=== PATIENT | male | born 1960 | race African-American/Black ===

== ENCOUNTER 2022-02-12 19:10 | Inpatient (IN) | payer MEDICARE ==
[~2022-02-12] VITALS: Ht 172.7 cm; Wt 88.4 kg
--- NOTE | 2022-02-12 19:31 | ED.ADGEN ---
General Adult EDM: Chief Complaint: CHEST PAIN HPI: HPI: Patient is a 61 year old male coming in via EMS for chest pain. Patient states he is also shortness of breath and headaches for the past month. Patient was recently released from [facility] custodial after he stayed for about 3 days. Patient has a history of diabetes, CABG, hypertension, neuropathy, intermittent alcohol use. Patient had a four-vessel CABG and colon resection 2013. Patient is status post hemodialysis due to renal transplant in 2010. All of his doctors and procedures were done at [facility]. Patient was given 324 mg aspirin by EMS. Patient states he was recently on a drinking binge which is why he ended up in custodial. Patient states the chest pain has been there but has been getting worse 1 hour prior to calling EMS. He describes it as a tightness and also reports lightheadedness and nausea. Review of Systems: Review of Systems: All other systems within normal limits except for as noted in the HPI Current Medications: Current Medications Medications (Trade) Dose Ordered Sig/Twan Start Time Stop Time Status Last Admin Dose Admin Acetaminophen (Tylenol) 650 mg PRN Q4HRS PRN 02/12/22 20:45 02/13/22 20:44 Calcium Gluconate (Calcium Gluconate) 1,000 mg 1X ONCE 02/12/22 20:15 02/12/22 20:16 DC 02/12/22 20:46 1,000 MG Dextrose (Dextrose 50%-Water Syringe) 25 gm 1X ONCE 02/12/22 20:15 02/12/22 20:16 DC 02/12/22 20:46 25 GM Fentanyl Citrate (Fentanyl 2ml Vial) 50 mcg PRN Q1HR PRN 02/12/22 20:45 02/13/22 20:44 Insulin Human Regular (HumuLIN R VIAL) 10 unit 1X ONCE 02/12/22 20:15 02/12/22 20:16 DC 02/12/22 20:49 10 UNIT Lorazepam (Ativan Inj) 1 mg 1X ONCE 02/12/22 19:45 02/12/22 19:53 DC 02/12/22 20:23 1 MG Ondansetron HCl (Zofran) 4 mg PRN Q8HRS PRN 02/12/22 20:45 02/13/22 20:44 Sodium Chloride 500 ml @ 500 mls/hr 1X ONCE 02/12/22 20:00 02/12/22 20:59 DC 02/12/22 20:23 500 MLS/HR Tacrolimus (Prograf) 1 mg 1X STAT 02/12/22 20:25 02/12/22 20:37 DC Allergies: Allergies: Allergies Coded Allergies Type Severity Reaction Last Updated Verified No Known Drug Allergies 02/12/22 No Physical Exam: PE: Constitutional: Well developed, well nourished, no acute distress, non-toxic appearance. [] HENT: Normocephalic, atraumatic, bilateral external ears normal, nose normal. [] Eyes: PERRLA, conjunctiva normal, no discharge. [] Neck: No rigidity, supple, no stridor. [] Cardiovascular: Regular rate and rhythm, brisk cap refill [] Lungs & Thorax: Non labored symmetric respirations, no tachypnea or respiratory distress [] Abdomen: Soft, nondistended. Skin: Warm, dry, no erythema, no rash. [] Back: Unremarkable Extremities: No deformities, range of motion grossly intact, no lower extremity edema [] Neurologic: Alert and oriented X 3, no focal deficits noted. [] Psychologic: Affect normal, judgement normal, mood normal. [] Current Patient Data: Labs: Laboratory Tests Test 02/12/22 19:46 White Blood Count 12.1 x10^3/uL (4.0-11.0) H Red Blood Count 5.71 x10^6/uL (4.30-5.70) H Hemoglobin 16.8 g/dL (13.0-17.5) Hematocrit 49.9 % (39.0-53.0) Mean Corpuscular Volume 87 fL (79-100) Mean Corpuscular Hemoglobin 29 pg (25-35) Mean Corpuscular Hemoglobin Concent 34 g/dL (31-37) Red Cell Distribution Width 15.0 % (11.5-14.5) H Platelet Count 252 x10^3/uL (140-400) Neutrophils (%) (Auto) 87 % (31-73) H Lymphocytes (%) (Auto) 6 % (24-48) L Monocytes (%) (Auto) 7 % (0-9) Eosinophils (%) (Auto) 0 % (0-3) Basophils (%) (Auto) 1 % (0-3) Neutrophils # (Auto) 10.5 x10^3/uL (1.8-7.7) H Lymphocytes # (Auto) 0.7 x10^3/uL (1.0-4.8) L Monocytes # (Auto) 0.9 x10^3/uL (0.0-1.1) Eosinophils # (Auto) 0.0 x10^3/uL (0.0-0.7) Basophils # (Auto) 0.1 x10^3/uL (0.0-0.2) Prothrombin Time 12.6 SEC (11.7-14.0) Prothrombin Time INR 1.0 (0.8-1.1) D-Dimer (Tania) 2.24 ug/mlFEU (0.00-0.50) H Sodium Level 131 mmol/L (136-145) L Potassium Level 7.2 mmol/L (3.5-5.1) *H Chloride Level 91 mmol/L (98-107) L Carbon Dioxide Level 21 mmol/L (21-32) Anion Gap 19 (6-14) H Blood Urea Nitrogen 32 mg/dL (8-26) H Creatinine 2.3 mg/dL (0.7-1.3) H Estimated GFR (Cockcroft-Gault) 28.9 BUN/Creatinine Ratio 14 (6-20) Glucose Level 102 mg/dL (70-99) H Calcium Level 10.2 mg/dL (8.5-10.1) H Magnesium Level 1.4 mg/dL (1.8-2.4) L Total Bilirubin 1.8 mg/dL (0.2-1.0) H Aspartate Amino Transferase (AST) 62 U/L (15-37) H Alanine Aminotransferase (ALT) 54 U/L (16-63) Alkaline Phosphatase 102 U/L (46-116) Troponin I High Sensitivity 34 ng/L (4-75) MF-Tww-V-Type Natriuretic Peptide 270 pg/mL (0-124) H Total Protein 8.5 g/dL (6.4-8.2) H Albumin 4.7 g/dL (3.4-5.0) Albumin/Globulin Ratio 1.2 (1.0-1.7) Lipase 53 U/L (73-393) L Laboratory Tests 02/12/22 19:46 Laboratory Tests 02/12/22 19:46 Vital Signs: Vital Signs Date Time Temp Pulse Resp B/P (MAP) Pulse Ox O2 Delivery O2 Flow Rate FiO2 02/12/22 19:21 98.3 125 16 155/117 (130) 97 Room Air 98.3 EKG: EK; Sinus tachycardia, normal axis, heart rate 123. Slight ST elevation in anterior leads, no reciprocal changes. [] 2101: Sinus tachycardia, heart rate 123 bpm, no STEMI no segment change from previous Heart Score: C/O Chest Pain: Yes HEART Score for Chest Pain: HEART Score for Chest Pain Response (Comments) Value History Moderately Suspicious 1 ECG Nonspecific Repolarizatio 1 Age >45 - < 65 1 Risk Factors >3 Risk Factors or Hx CAD 2 Troponin < Normal Limit 0 Total 5 Risk Factors: Risk Factors: DM, Current or recent (<one month) smoker, HTN, HLP, family history of CAD, obesity. Risk Scores: Score 0 - 3: 2.5% MACE over next 6 weeks - Discharge Home Score 4 - 6: 20.3% MACE over next 6 weeks - Admit for Clinical Observation Score 7 - 10: 72.7% MACE over next 6 weeks - Early Invasive Strategies Radiology/Procedures: Radiology/Procedures: [facility] [address] [place], [place] [id number] IMAGING REPORT Signed PATIENT: ISH DEL VALLE [facility]: [id number] : 1960 LOCATION: ER AGE: 61 SEX: M EXAM STATUS: REG ER ORD. PHYSICIAN: MADAI POLLOCK MD REASON: chest pain PROCEDURE: PORTABLE CHEST 1V XR CHEST 1V History: Reason: chest pain / Spl. Instructions: / History: Comparison: August 18, 2020 Findings: Mild left basilar linear atelectasis or scarring. No pleural effusion. No pneumothorax. Prior median sternotomy. Unchanged radiopaque density within overlying the right upper chest compared to August 18, 2020, relate to prior postoperative changes. Impression: 1. Mild linear left basilar atelectasis or scarring. Electronically signed by: Alberto Murillo DO (02/12/2022 8:41 PM) [facility] DICTATED and SIGNED BY: ALBERTO MURILLO DO DATE: 02/12/222037 [] Course & Med Decision Making: Course & Med Decision Making Pertinent Labs and Imaging studies reviewed. (See chart for details) Hyperkalemia treatment started in the emergency department. Admitted to hospitalist for further management repeat troponin. Patient given his home dose of Prograf in emergency department [] Dragon Disclaimer: Dragon Disclaimer: This electronic medical record was generated, in whole or in part, using a voice recognition dictation system. Departure Departure Impression: Primary Impression: Chest pain Additional Impressions: Hyperkalemia ANSHUL (acute kidney injury) Disposition: ADMITTED INPATIENT Admitting Physician: JOANN Condition: IMPROVED Problem Qualifiers MADAI POLLOCK MD Feb 12, 2022 19:31
[2022-02-12 19:53] LABS: BASO # 0.1 x10^3/uL (0.0-0.2); BASO % 1 % (0-3); EOS % 0 % (0-3); HEMATOCRIT 49.9 % (39.0-53.0); HEMOGLOBIN 16.8 g/dL (13.0-17.5); LYMPH # 0.7 x10^3/uL (1.0-4.8); LYMPH % 6 % (24-48); MEAN CORPUSCULAR HEMOGLOBIN 29 pg (25-35); MEAN CORPUSCULAR HGB CONC 34 g/dL (31-37); MEAN CORPUSCULAR VOLUME 87 fL (79-100); MONO # 0.9 x10^3/uL (0.0-1.1); MONO % 7 % (0-9); NEUT # 10.5 x10^3/uL (1.8-7.7); NEUT % 87 % (31-73); PLATELET COUNT 252 x10^3/uL (140-400); RED BLOOD COUNT 5.71 x10^6/uL (4.30-5.70); WHITE BLOOD COUNT 12.1 x10^3/uL (4.0-11.0)
[2022-02-12] MEDS: IV NORMAL SALINE 500ML BAG 500 ML IV ONE ×2 (20:00→20:23)
[2022-02-12] MEDS ORDERED: ONDANSETRON PF 4 MG/2 ML VIAL. IVP ONE (20:00)
[2022-02-12 20:02] LABS: PROTHROMBIN TIME PATIENT 12.6 SEC (11.7-14.0)
[2022-02-12 20:08] LABS: ALBUMIN 4.7 g/dL (3.4-5.0); ALBUMIN/GLOBULIN RATIO 1.2 (1.0-1.7); CALCIUM 10.2 mg/dL (8.5-10.1); CREATININE 2.3 mg/dL (0.7-1.3); GFR 28.9; MAGNESIUM 1.4 mg/dL (1.8-2.4); TOTAL BILIRUBIN 1.8 mg/dL (0.2-1.0); TOTAL PROTEIN 8.5 g/dL (6.4-8.2)
[2022-02-12 20:11] LABS: D-DIMER 2.24 ug/mlFEU (0.00-0.50); POTASSIUM 7.2 mmol/L (3.5-5.1)
[2022-02-12] MEDS ORDERED: DEXTROSE 50% 25 GM / 50ML DISP.SYRIN. IV ONE (20:15)
[2022-02-12] MEDS ORDERED: CALCIUM GLUCONATE 1,000 MG/10 ML VIAL. IVP ONE (20:15)
[2022-02-12] MEDS ORDERED: INSULIN REGULAR 100 UNIT/ML 3ML VIAL. IV ONE (20:15)
[2022-02-12] MEDS: fentaNYL PF VIAL 100 MCG/2 ML VIAL IV PRN ×2 (20:22→23:57)
[2022-02-12] MEDS ORDERED: TACROLIMUS 0.5 MG CAPSULE. PO STA (20:25)
--- NOTE | 2022-02-12 20:44 | RAD ---
XR CHEST 1V History: Reason: chest pain / Spl. Instructions: / History: Comparison: August 18, 2020 Findings: Mild left basilar linear atelectasis or scarring. No pleural effusion. No pneumothorax. Prior median sternotomy. Unchanged radiopaque density within overlying the right upper chest compared to August 18, 2020, rel ate to prior postoperative changes. Impression: 1. Mild linear left basilar atelectasis or scarring. Electronically signed by: Alberto Dejesus DO (02/12/2022 8:41 PM) [facility]
[2022-02-12] MEDS ORDERED: ACETAMINOPHEN 325 MG TABLET. PO PRN (20:45)
[2022-02-12] MEDS ORDERED: fentaNYL PF VIAL 100 MCG/2 ML VIAL IVP PRN (20:45)
[2022-02-12 21:21] LABS: HYALINE CASTS, URINE MANY /HPF; WAXY CASTS,URINE FEW /HPF
[2022-02-12 21:22] LABS: AMPHETAMINE/METHAMPHETAMINE NEG (NEG); BACTERIA,URINE 0 /HPF (0-FEW); BARBITURATES NEG (NEG); BENZODIAZEPINES NEG (NEG); CANNABINOIDS NEG (NEG); COCAINE NEG (NEG); METHADONE NEG (NEG); OPIATES NEG (NEG); PHENCYCLIDINE NEG (NEG); RBC,URINE 0 /HPF (0-2)
[2022-02-12 22:52] VITALS: BP 184/120
--- NOTE | 2022-02-12 23:00 | NUR ---
The patient, ISH DEL VALLE, 61 y/o, M admitted by KARIE DRAKE III, DO, was given written information regarding hospital policies, unit procedures and contact persons. Valuables were checked and documented. pt a/ox3, oriented to unit room and staff. will cont to monitor pt status and safety. pmrn
[2022-02-13] VITALS (7 sets, daily range): BP systolic 131–180; BP diastolic 72–99
[2022-02-13] MEDS: ONDANSETRON PF 4 MG/2 ML VIAL. IVP PRN ×2 (00:14→09:22)
[2022-02-13] MEDS ORDERED: chlordiazePOXIDE HCL 25 MG CAPSULE PO PRN ×2 (00:30)
[2022-02-13] MEDS ORDERED: MAGNESIUM SULFATE 2GM 50 ML IV ONE (02:00)
[2022-02-13] MEDS ORDERED: TACR1CAP5 PO ×3 (02:51→11:14)
[2022-02-13] MEDS ORDERED: ASPI-630 PO (02:51)
[2022-02-13] MEDS ORDERED: [UNRECOGNIZED DRUG - CODE] (02:51)
[2022-02-13 04:55] LABS: BASO % 0 % (0-3); EOS % 0 % (0-3); HEMATOCRIT 46.8 % (39.0-53.0); LYMPH # 0.9 x10^3/uL (1.0-4.8); LYMPH % 11 % (24-48); MEAN CORPUSCULAR HEMOGLOBIN 30 pg (25-35); MEAN CORPUSCULAR HGB CONC 34 g/dL (31-37); MEAN CORPUSCULAR VOLUME 88 fL (79-100); MONO # 0.6 x10^3/uL (0.0-1.1); MONO % 8 % (0-9); NEUT # 6.5 x10^3/uL (1.8-7.7); NEUT % 81 % (31-73); PLATELET COUNT 207 x10^3/uL (140-400); RED BLOOD COUNT 5.35 x10^6/uL (4.30-5.70)
[2022-02-13 05:11] LABS: ALBUMIN/GLOBULIN RATIO 1.3 (1.0-1.7); CALCIUM 9.6 mg/dL (8.5-10.1); POTASSIUM 4.3 mmol/L (3.5-5.1); TOTAL BILIRUBIN 1.7 mg/dL (0.2-1.0); TOTAL PROTEIN 7.2 g/dL (6.4-8.2)
[2022-02-13] MEDS ORDERED: [UNRECOGNIZED DRUG - OTHER] (05:59)
[2022-02-13] MEDS ORDERED: coreg (05:59)
[2022-02-13] MEDS ORDERED: VITD (05:59)
[2022-02-13] MEDS ORDERED: fish (05:59)
[2022-02-13 07:17] LABS: % BANDS 1 % (0-9); % LYMPHS 17 % (24-48); % MONOS 3 % (0-10); % SEGS 79 % (35-66); PLT ESTIMATE ADEQUATE (ADEQUATE)
[2022-02-13] MEDS ORDERED: MULTIVIT INFUSN,ADULT 4,VIT K 10 ML, THIAMINE INJ 100 MG, FOLIC ACID INJ 1 MG in IV NOR... IV SCH (09:00)
--- NOTE | 2022-02-13 09:07 | EKG ---
[facility] [address] [place] [address] Test Date: 2022-02-12 Test Time: 21:02:53 Pat Name: ISH DEL VALLE Department: Room: Gender: M [employer]: : 1960 Requested By: MADAI POLLOCK Order Number: [id number] Reading MD: Measurements Intervals [place] Rate: 123 P: 57 IA: 136 QRS: 62 QRSD: 92 T: 14 QT: 298 QTc: 432 Interpretive Statements SINUS TACHYCARDIA LEFT ATRIAL ABNORMALITY T ABNORMALITY IN INFERIOR LEADS ABNORMAL ECG RI6.01 Compared to ECG 02/12/2022 19:18:13 T-wave abnormality now present
--- NOTE | 2022-02-13 10:01 | EKG ---
[facility] [address] [place] [address] Test Date: 2022-02-12 Test Time: 19:18:13 Pat Name: ISH DEL VALLE Department: Room: Gender: M Receiving Supervisor: : 1960 Requested By: MADAI POLLOCK Order Number: [id number] Reading MD: Measurements Intervals [place] Rate: 123 P: 63 [place]: 132 QRS: 63 QRSD: 88 T: 47 QT: 286 QTc: 414 Interpretive Statements SINUS TACHYCARDIA LEFT ATRIAL ABNORMALITY ABNORMAL ECG RI6.02 No previous ECG available for comparison
--- NOTE | 2022-02-13 10:49 | PDOC1 ---
History and Physical Date of Service: DOS: DATE: 02/13/22 TIME: 10:49 Chief Complaint: Chief Complain: chest pain History of Present Illness: HPI: Patient is a 61 year old male coming in via EMS for chest pain. Patient states he is also shortness of breath and headaches for the past month. Patient was recently released from [facility] prison after he stayed for about 3 days. Patient has a history of diabetes, CABG, hypertension, neuropathy, intermittent alcohol use. Patient had a four-vessel CABG and colon resection 2013. Patient is status post hemodialysis due to renal transplant in 2010. All of his doctors and procedures were done at [facility]. Patient was given 324 mg aspirin by EMS. Patient states he was recently on a drinking binge which is why he ended up in prison. Patient states the chest pain has been there but has been getting worse 1 hour prior to calling EMS. He describes it as a tightness and also reports lightheadedness and nausea When evaluated at bedside patient very difficult to obtain history from. Frequently shaking [id number]. Appears other may be some alcohol withdrawal at the moment. As needed Ativan. Nephrology cardiology consulted. Past Medical/Surgical History: PMH/PSH: Cardiovascular: CAD, HTN, Hyperlipidemia CENTRAL NERVOUS SYSTEM: CVA GI: GERD, GI bleed, Other (appendicitis ) Heme/Onc: Anemia NOS, Other (DVT) Psych: Anxiety, Addictions, Depression Renal/: Chronic renal insuff (s/p transplant ), Benign prostatic enlarg. Endocrine: Diabetes Allergies: Allergies: Coded Allergies: No Known Drug Allergies (Unverified , 02/12/22) Family History: Family History: Unknown per patient Social History: Social History: Occasional tobacco use. Daily alcohol use "6 tall boys a day." Denies drug use Current Medications: Current Medications Current Medications Fentanyl Citrate (Fentanyl 2ml Vial) 50 mcg PRN Q15MIN PRN IV PAIN GREATER THAN 3/10 Last administered on 02/12/22at 23:57; Start 02/12/22 at 20:00; Stop 02/13/22 at 19:59 Lorazepam (Ativan Inj) 1 mg 1X ONCE IVP Last administered on 02/12/22at 20:23; Start 02/12/22 at 19:45; Stop 02/12/22 at 19:53; Status DC Sodium Chloride 500 ml @ 500 mls/hr 1X ONCE IV Last administered on 02/12/22at 20:00; Start 02/12/22 at 20:00; Stop 02/12/22 at 20:59; Status DC Ondansetron HCl (Zofran) 4 mg 1X ONCE IVP Last administered on 02/12/22at 20:22; Start 02/12/22 at 20:00; Stop 02/12/22 at 20:02; Status DC Calcium Gluconate (Calcium Gluconate) 1,000 mg 1X ONCE IVP Last administered on 02/12/22at 20:46; Start 02/12/22 at 20:15; Stop 02/12/22 at 20:16; Status DC Dextrose (Dextrose 50%-Water Syringe) 25 gm 1X ONCE IV Last administered on 02/12/22at 20:46; Start 02/12/22 at 20:15; Stop 02/12/22 at 20:16; Status DC Insulin Human Regular (HumuLIN R VIAL) 10 unit 1X ONCE IV Last administered on 02/12/22at 20:49; Start 02/12/22 at 20:15; Stop 02/12/22 at 20:16; Status DC Tacrolimus (Prograf) 1 mg 1X STAT PO Last administered on 02/12/22at 23:51; Start 02/12/22 at 20:25; Stop 02/12/22 at 20:37; Status DC Ondansetron HCl (Zofran) 4 mg PRN Q8HRS PRN IVP NAUSEA/VOMITING Last administered on 02/13/22at 09:22; Start 02/12/22 at 20:45; Stop 02/13/22 at 20:44 Fentanyl Citrate (Fentanyl 2ml Vial) 50 mcg PRN Q1HR PRN IVP PAIN; Start 02/12/22 at 20:45; Stop 02/13/22 at 20:44 Acetaminophen (Tylenol) 650 mg PRN Q4HRS PRN PO FEVER > 100.3'F; Start 02/12/22 at 20:45; Stop 02/13/22 at 20:44 Multivitamins 10 ml/Thiamine HCl 100 mg/Folic Acid 1 mg/Sodium Chloride 1,011.2 ml @ 100 mls/ hr DAILY IV Last administered on 02/13/22at 09:00; Start 02/13/22 at 09:00; Stop 02/13/22 at 19:07 Multivitamins (Thera M Plus) 1 tab DAILY PO ; Start 02/14/22 at 09:00 Folic Acid (Folic Acid) 1 mg DAILY PO ; Start 02/14/22 at 09:00 Thiamine Mononitrate (Vitamin B-1) 100 mg DAILY PO ; Start 02/14/22 at 09:00 Chlordiazepoxide (Librium) 50 mg PRN Q1HR PRN PO For CIWA 8-14; Start 02/13/22 at 00:30 Chlordiazepoxide (Librium) 100 mg PRN Q1HR PRN PO For CIWA 15 or greater; Start 02/13/22 at 00:30 Lorazepam (Ativan) 4 mg PRN Q1HR PRN PO For CIWA 8-14 Last administered on 02/13/22at 09:23; Start 02/13/22 at 00:30 Lorazepam (Ativan) 8 mg PRN Q1HR PRN PO For CIWA 15 or greater; Start 02/13/22 at 00:30 Lorazepam (Ativan Inj) 2 mg PRN Q1HR PRN IV For CIWA 8-14; Start 02/13/22 at 00:30 Lorazepam (Ativan Inj) 4 mg PRN Q1HR PRN IV For CIWA 15 or greater; Start 02/13/22 at 00:30 Lorazepam (Ativan Inj) 2 mg PRN Q15MIN PRN IV SEE COMMENTS; Start 02/13/22 at 00:30; Status Cancel Lorazepam (Ativan Inj) 4 mg PRN Q15MIN PRN IV SEE COMMENTS; Start 02/13/22 at 00:30; Status UNV Magnesium Sulfate 50 ml @ 25 mls/hr 1X ONCE IV Last administered on 02/13/22at 01:34; Start 02/13/22 at 02:00; Stop 02/13/22 at 03:59; Status DC Clonidine HCl (Catapres) 0.1 mg PRN Q2HR PRN PO HYPERTENSION; Start 02/13/22 at 01:30 Ceftriaxone Sodium (Rocephin) 1 gm Q24H IVP ; Start 02/13/22 at 11:00; Status UNV Doxycycline Hyclate (Vibra-Tab) 100 mg BID PO ; Start 02/13/22 at 21:00; Status UNV Active Scripts Active Reported [vitd3] Unknown Strength Unknown Dose [fish] Unknown Strength Unknown Dose [repa] Unknown Strength Unknown Dose [coreg] Unknown Strength Unknown Dose Aspirin 81 Mg Tab.chew 81 Mg PO DAILY Prograf (Tacrolimus) 1 Mg Capsule 2 Cap PO BID [Cor] BID ROS: Review of Systems Review of System Unless known HPI 14 point review systems Physical Exam: Vital Signs: Vital Signs Date Time Temp Pulse Resp B/P (MAP) Pulse Ox O2 Delivery O2 Flow Rate FiO2 02/13/22 08:00 Room Air 2.0 02/13/22 07:00 98.2 109 19 131/77 (95) 99 98.2 Physcial Exam: GEN: No apparent distress. Alert and oriented poor historian HEENT: Normal cephalic, atraumatic, external auditory canals are patent EYES: Extraocular muscles are intact MUSCULOSKELETAL: Well developed , well nourished, good range of motion ENDOCRINE: No thyromegaly was palpated LYMPHATICS: No cervical chain or axillary nodes were noted HEMATOPOIETIC: No bruising NECK: Supple, no JVD, no thyromegaly was noted LUNGS: Clear to auscultation in all lung torres without rhonchi or wheezing HEART: RRR, S1, S2 present. Peripheral pulses intact, no obvious murmurs noted ABDOMEN: Soft, nontender. Positive bowel sounds, no organomegaly, normal bowel sounds EXTREMITIES: Bilateral lower extremity edema. N NEUROLOGIC: Normal speech and tone. A&O x 3, moves all extremities, no obvious focal deficits PSYCHIATRIC: Appears to be withdrawing from alcohol SKIN: No ulcerations or rashes, good skin turgor, no jaundice VASCULAR: Good capillary refill, neurovascular bundle appears to be intact Labs: Labs: Laboratory Tests Test 02/12/22 19:46 02/12/22 20:52 02/12/22 23:10 02/13/22 01:20 White Blood Count 12.1 x10^3/uL (4.0-11.0) 8.0 x10^3/uL (4.0-11.0) Red Blood Count 5.71 x10^6/uL (4.30-5.70) 5.35 x10^6/uL (4.30-5.70) Hemoglobin 16.8 g/dL (13.0-17.5) 16.0 g/dL (13.0-17.5) Hematocrit 49.9 % (39.0-53.0) 46.8 % (39.0-53.0) Mean Corpuscular Volume 87 fL (79-100) 88 fL (79-100) Mean Corpuscular Hemoglobin 29 pg (25-35) 30 pg (25-35) Mean Corpuscular Hemoglobin Concent 34 g/dL (31-37) 34 g/dL (31-37) Red Cell Distribution Width 15.0 % (11.5-14.5) 15.0 % (11.5-14.5) Platelet Count 252 x10^3/uL (140-400) 207 x10^3/uL (140-400) Neutrophils (%) (Auto) 87 % (31-73) 81 % (31-73) Lymphocytes (%) (Auto) 6 % (24-48) 11 % (24-48) Monocytes (%) (Auto) 7 % (0-9) 8 % (0-9) Eosinophils (%) (Auto) 0 % (0-3) 0 % (0-3) Basophils (%) (Auto) 1 % (0-3) 0 % (0-3) Neutrophils # (Auto) 10.5 x10^3/uL (1.8-7.7) 6.5 x10^3/uL (1.8-7.7) Lymphocytes # (Auto) 0.7 x10^3/uL (1.0-4.8) 0.9 x10^3/uL (1.0-4.8) Monocytes # (Auto) 0.9 x10^3/uL (0.0-1.1) 0.6 x10^3/uL (0.0-1.1) Eosinophils # (Auto) 0.0 x10^3/uL (0.0-0.7) 0.0 x10^3/uL (0.0-0.7) Basophils # (Auto) 0.1 x10^3/uL (0.0-0.2) 0.0 x10^3/uL (0.0-0.2) Prothrombin Time 12.6 SEC (11.7-14.0) Prothromb Time International Ratio 1.0 (0.8-1.1) D-Dimer (Tania) 2.24 ug/mlFEU (0.00-0.50) Sodium Level 131 mmol/L (136-145) 133 mmol/L (136-145) Potassium Level 7.2 mmol/L (3.5-5.1) 4.3 mmol/L (3.5-5.1) Chloride Level 91 mmol/L (98-107) 95 mmol/L (98-107) Carbon Dioxide Level 21 mmol/L (21-32) 25 mmol/L (21-32) Anion Gap 19 (6-14) 13 (6-14) Blood Urea Nitrogen 32 mg/dL (8-26) 35 mg/dL (8-26) Creatinine 2.3 mg/dL (0.7-1.3) 2.0 mg/dL (0.7-1.3) Estimated GFR (Cockcroft-Gault) 28.9 41.0 BUN/Creatinine Ratio 14 (6-20) 18 (6-20) Glucose Level 102 mg/dL (70-99) 146 mg/dL (70-99) Calcium Level 10.2 mg/dL (8.5-10.1) 9.6 mg/dL (8.5-10.1) Magnesium Level 1.4 mg/dL (1.8-2.4) Total Bilirubin 1.8 mg/dL (0.2-1.0) 1.7 mg/dL (0.2-1.0) Aspartate Amino Transf (AST/SGOT) 62 U/L (15-37) 44 U/L (15-37) Alanine Aminotransferase (ALT/SGPT) 54 U/L (16-63) 40 U/L (16-63) Alkaline Phosphatase 102 U/L (46-116) 89 U/L (46-116) Troponin I High Sensitivity 34 ng/L (4-75) 53 ng/L (4-75) 57 ng/L (4-75) NE-Ebt-N-Type Natriuretic Peptide 270 pg/mL (0-124) Total Protein 8.5 g/dL (6.4-8.2) 7.2 g/dL (6.4-8.2) Albumin 4.7 g/dL (3.4-5.0) 4.0 g/dL (3.4-5.0) Albumin/Globulin Ratio 1.2 (1.0-1.7) 1.3 (1.0-1.7) Lipase 53 U/L (73-393) Urine Collection Type Unknown Urine Color (Auto) Yellow Urine Turbidity Clear Urine pH (Auto) 5.5 (<5.0-8.0) Urine Specific [place] 1.022 (1.000-1.030) Urine Protein (Auto) 300 mg/dL (Negative) Urine Glucose (Auto)(UA) Negative mg/dL (Negative) Urine Ketones (Auto) 20 mg/dL (Negative) Urine Blood (Auto) Small (Negative) Urine Nitrite Negative (Negative) Urine Bilirubin (Auto) Negative (Negative) Urine Urobilinogen (Auto) Normal mg/dL (Normal) Urine Leukocyte Esterase (Auto) Negative (Negative) Urine RBC 0 /HPF (0-2) Urine WBC 5-10 /HPF (0-4) Urine Bacteria 0 /HPF (0-FEW) Urine Hyaline Casts Many /HPF Urine Waxy Casts Few /HPF Urine Mucus Marked /LPF Urine Opiates Screen Neg (NEG) Urine Methadone Screen Neg (NEG) Urine Barbiturates Neg (NEG) Urine Phencyclidine Screen Neg (NEG) Urine Amphetamine/Methamphetamine Neg (NEG) Urine Benzodiazepines Screen Neg (NEG) Urine Cocaine Screen Neg (NEG) Urine Cannabinoids Screen Neg (NEG) Urine Ethyl Alcohol Pos (NEG) Segmented Neutrophils % 79 % (35-66) Band Neutrophils % 1 % (0-9) Lymphocytes % 17 % (24-48) Monocytes % 3 % (0-10) Platelet Estimate Adequate (ADEQUATE) Test 02/13/22 08:17 Glucose (Fingerstick) 94 mg/dL (70-99) Laboratory Tests Test 02/12/22 19:46 02/12/22 20:52 02/12/22 23:10 02/13/22 01:20 White Blood Count 12.1 x10^3/uL (4.0-11.0) 8.0 x10^3/uL (4.0-11.0) Red Blood Count 5.71 x10^6/uL (4.30-5.70) 5.35 x10^6/uL (4.30-5.70) Hemoglobin 16.8 g/dL (13.0-17.5) 16.0 g/dL (13.0-17.5) Hematocrit 49.9 % (39.0-53.0) 46.8 % (39.0-53.0) Mean Corpuscular Volume 87 fL (79-100) 88 fL (79-100) Mean Corpuscular Hemoglobin 29 pg (25-35) 30 pg (25-35) Mean Corpuscular Hemoglobin Concent 34 g/dL (31-37) 34 g/dL (31-37) Red Cell Distribution Width 15.0 % (11.5-14.5) 15.0 % (11.5-14.5) Platelet Count 252 x10^3/uL (140-400) 207 x10^3/uL (140-400) Neutrophils (%) (Auto) 87 % (31-73) 81 % (31-73) Lymphocytes (%) (Auto) 6 % (24-48) 11 % (24-48) Monocytes (%) (Auto) 7 % (0-9) 8 % (0-9) Eosinophils (%) (Auto) 0 % (0-3) 0 % (0-3) Basophils (%) (Auto) 1 % (0-3) 0 % (0-3) Neutrophils # (Auto) 10.5 x10^3/uL (1.8-7.7) 6.5 x10^3/uL (1.8-7.7) Lymphocytes # (Auto) 0.7 x10^3/uL (1.0-4.8) 0.9 x10^3/uL (1.0-4.8) Monocytes # (Auto) 0.9 x10^3/uL (0.0-1.1) 0.6 x10^3/uL (0.0-1.1) Eosinophils # (Auto) 0.0 x10^3/uL (0.0-0.7) 0.0 x10^3/uL (0.0-0.7) Basophils # (Auto) 0.1 x10^3/uL (0.0-0.2) 0.0 x10^3/uL (0.0-0.2) Prothrombin Time 12.6 SEC (11.7-14.0) Prothromb Time International Ratio 1.0 (0.8-1.1) D-Dimer (Tania) 2.24 ug/mlFEU (0.00-0.50) Sodium Level 131 mmol/L (136-145) 133 mmol/L (136-145) Potassium Level 7.2 mmol/L (3.5-5.1) 4.3 mmol/L (3.5-5.1) Chloride Level 91 mmol/L (98-107) 95 mmol/L (98-107) Carbon Dioxide Level 21 mmol/L (21-32) 25 mmol/L (21-32) Anion Gap 19 (6-14) 13 (6-14) Blood Urea Nitrogen 32 mg/dL (8-26) 35 mg/dL (8-26) Creatinine 2.3 mg/dL (0.7-1.3) 2.0 mg/dL (0.7-1.3) Estimated GFR (Cockcroft-Gault) 28.9 41.0 BUN/Creatinine Ratio 14 (6-20) 18 (6-20) Glucose Level 102 mg/dL (70-99) 146 mg/dL (70-99) Calcium Level 10.2 mg/dL (8.5-10.1) 9.6 mg/dL (8.5-10.1) Magnesium Level 1.4 mg/dL (1.8-2.4) Total Bilirubin 1.8 mg/dL (0.2-1.0) 1.7 mg/dL (0.2-1.0) Aspartate Amino Transf (AST/SGOT) 62 U/L (15-37) 44 U/L (15-37) Alanine Aminotransferase (ALT/SGPT) 54 U/L (16-63) 40 U/L (16-63) Alkaline Phosphatase 102 U/L (46-116) 89 U/L (46-116) Troponin I High Sensitivity 34 ng/L (4-75) 53 ng/L (4-75) 57 ng/L (4-75) VP-Fxh-S-Type Natriuretic Peptide 270 pg/mL (0-124) Total Protein 8.5 g/dL (6.4-8.2) 7.2 g/dL (6.4-8.2) Albumin 4.7 g/dL (3.4-5.0) 4.0 g/dL (3.4-5.0) Albumin/Globulin Ratio 1.2 (1.0-1.7) 1.3 (1.0-1.7) Lipase 53 U/L (73-393) Urine Collection Type Unknown Urine Color (Auto) Yellow Urine Turbidity Clear Urine pH (Auto) 5.5 (<5.0-8.0) Urine Specific [place] 1.022 (1.000-1.030) Urine Protein (Auto) 300 mg/dL (Negative) Urine Glucose (Auto)(UA) Negative mg/dL (Negative) Urine Ketones (Auto) 20 mg/dL (Negative) Urine Blood (Auto) Small (Negative) Urine Nitrite Negative (Negative) Urine Bilirubin (Auto) Negative (Negative) Urine Urobilinogen (Auto) Normal mg/dL (Normal) Urine Leukocyte Esterase (Auto) Negative (Negative) Urine RBC 0 /HPF (0-2) Urine WBC 5-10 /HPF (0-4) Urine Bacteria 0 /HPF (0-FEW) Urine Hyaline Casts Many /HPF Urine Waxy Casts Few /HPF Urine Mucus Marked /LPF Urine Opiates Screen Neg (NEG) Urine Methadone Screen Neg (NEG) Urine Barbiturates Neg (NEG) Urine Phencyclidine Screen Neg (NEG) Urine Amphetamine/Methamphetamine Neg (NEG) Urine Benzodiazepines Screen Neg (NEG) Urine Cocaine Screen Neg (NEG) Urine Cannabinoids Screen Neg (NEG) Urine Ethyl Alcohol Pos (NEG) Segmented Neutrophils % 79 % (35-66) Band Neutrophils % 1 % (0-9) Lymphocytes % 17 % (24-48) Monocytes % 3 % (0-10) Platelet Estimate Adequate (ADEQUATE) Test 02/13/22 08:17 Glucose (Fingerstick) 94 mg/dL (70-99) Assessment/Plan Assessment/Plan Atypical chest pain with significant cardiac history CAD status post CABG, hypertensive urgency, shortness of breath secondary to bacterial pneumonia on imaging. Type 2 diabetes not on any home meds, status post renal transplant, alcohol abuse with withdrawal, hyperlipidemia -Admitted overnight with chest pain -CT ruled out. 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 On Prograf CellCept. Resumed these nephrology consult -Alcohol withdrawal protocol does appear to be actively withdrawing -Rocephin Doxy for pneumonia treatment. Patient reports handful vomiting episodes suspect possible aspiration. -Home meds as indicated -DVT prophylaxis -Discussed with bedside RN. Justifications for Admission Other Justification MICHELLE GREEN MD Feb 13, 2022 10:49
[2022-02-13] MEDS ORDERED: OMEP40CA7 PO (11:14)
[2022-02-13] MEDS ORDERED: CARV25TA PO (11:14)
[2022-02-13] MEDS ORDERED: OMEG1CAP50 PO (11:14)
[2022-02-13] MEDS ORDERED: ALLO300T PO (11:14)
[2022-02-13] MEDS ORDERED: MYCO500T PO (11:14)
[2022-02-13] MEDS ORDERED: MAGN400T48 PO (11:14)
[2022-02-13] MEDS ORDERED: VITA1TAB31 PO (11:14)
[2022-02-13] MEDS ORDERED: DICL20GE TP (11:19)
[2022-02-13] MEDS ORDERED: ALIR75PE5 SQ (11:19)
[2022-02-13] MEDS ORDERED: FLUT9.9S NS (11:19)
--- NOTE | 2022-02-13 11:31 | PDOC2 ---
CONSULT Date of Consult Date of Consult DATE: 02/13/22 TIME: 11:25 Reason for Consult Reason for Consult: ANSHUL, renal Tx , Hyperkalemia Source Source: Chart review, Patient History of Present Illness Reason for Visit: Patient is a 61 year old AA male coming in via EMS for chest pain. Patient states he is also shortness of breath and headaches for the past month. Patient was recently released from [facility] custodial after he stayed for about 3 days. Patient has a history of diabetes, CABG, hypertension, neuropathy, intermittent alcohol use. Patient had a four-vessel CABG and colon resection 2013. He is post renal transplant in 2010. All of his doctors and procedures were done at [facility]. Patient states he was recently on a drinking binge which is why he ended up in custodial. Patient states the chest pain has been there but has been getting worse 1 hour prior to calling EMS. He describes it as a tightness and also reports lightheadedness and nausea. He is a poor Historian. He states he is on Prograf and Cellcept for Kidney transplant . He states he has give the list of the meds to nursing. He states his baseline Cr is in 2's and follows at [facility] . Denies any Transplant pain, Denies dysuria, states his urine have been a little darker and may be some decrease in UOP. No Frquency , Urgency. Reports decrease in PO intake recently but has been trying to keep ip with fluids. C/O Vomiting off and On for many Months. Vomited x2 recently . States he has seen a GI and had ? EGD done . Denies LE edema. No use of NSAIDs Past Medical History Past Medical History Cardiovascular: CAD, HTN, Hyperlipidemia CENTRAL NERVOUS SYSTEM: CVA GI: GERD, GI bleed, Other (appendicitis ) Heme/Onc: Anemia NOS, Other (DVT) Psych: Anxiety, Addictions, Depression Renal/: Chronic renal insuff (s/p transplant ), Benign prostatic enlarg. Endocrine: Diabetes Past Surgical History Past Surgical History CABG, Colectomy Family History Family History Non Contributory Social History Social History Smoke: Quit ALCOHOL: heavy Drugs: None Lives: Alone Current Problem List Problem List Problems Medical Problems: (1) ANSHUL (acute kidney injury) Status: Acute (2) Chest pain Status: Acute (3) Hyperkalemia Status: Acute Current Medications Current Medications Current Medications Fentanyl Citrate (Fentanyl 2ml Vial) 50 mcg PRN Q15MIN PRN IV PAIN GREATER THAN 3/10 Last administered on 02/12/22at 23:57; Start 02/12/22 at 20:00; Stop 02/13/22 at 19:59 Lorazepam (Ativan Inj) 1 mg 1X ONCE IVP Last administered on 02/12/22at 20:23; Start 02/12/22 at 19:45; Stop 02/12/22 at 19:53; Status DC Sodium Chloride 500 ml @ 500 mls/hr 1X ONCE IV Last administered on 02/12/22at 20:00; Start 02/12/22 at 20:00; Stop 02/12/22 at 20:59; Status DC Ondansetron HCl (Zofran) 4 mg 1X ONCE IVP Last administered on 02/12/22at 20:22; Start 02/12/22 at 20:00; Stop 02/12/22 at 20:02; Status DC Calcium Gluconate (Calcium Gluconate) 1,000 mg 1X ONCE IVP Last administered on 02/12/22at 20:46; Start 02/12/22 at 20:15; Stop 02/12/22 at 20:16; Status DC Dextrose (Dextrose 50%-Water Syringe) 25 gm 1X ONCE IV Last administered on 02/12/22at 20:46; Start 02/12/22 at 20:15; Stop 02/12/22 at 20:16; Status DC Insulin Human Regular (HumuLIN R VIAL) 10 unit 1X ONCE IV Last administered on 02/12/22at 20:49; Start 02/12/22 at 20:15; Stop 02/12/22 at 20:16; Status DC Tacrolimus (Prograf) 1 mg 1X STAT PO Last administered on 02/12/22at 23:51; Start 02/12/22 at 20:25; Stop 02/12/22 at 20:37; Status DC Ondansetron HCl (Zofran) 4 mg PRN Q8HRS PRN IVP NAUSEA/VOMITING Last administered on 02/13/22at 09:22; Start 02/12/22 at 20:45; Stop 02/13/22 at 20:44 Fentanyl Citrate (Fentanyl 2ml Vial) 50 mcg PRN Q1HR PRN IVP PAIN; Start 02/12/22 at 20:45; Stop 02/13/22 at 20:44 Acetaminophen (Tylenol) 650 mg PRN Q4HRS PRN PO FEVER > 100.3'F; Start 02/12/22 at 20:45; Stop 02/13/22 at 20:44 Multivitamins 10 ml/Thiamine HCl 100 mg/Folic Acid 1 mg/Sodium Chloride 1,011.2 ml @ 100 mls/ hr DAILY IV Last administered on 02/13/22at 09:00; Start 02/13/22 at 09:00; Stop 02/13/22 at 19:07 Multivitamins (Thera M Plus) 1 tab DAILY PO ; Start 02/14/22 at 09:00 Folic Acid (Folic Acid) 1 mg DAILY PO ; Start 02/14/22 at 09:00 Thiamine Mononitrate (Vitamin B-1) 100 mg DAILY PO ; Start 02/14/22 at 09:00 Chlordiazepoxide (Librium) 50 mg PRN Q1HR PRN PO For CIWA 8-14; Start 02/13/22 at 00:30; Stop 02/13/22 at 10:49; Status DC Chlordiazepoxide (Librium) 100 mg PRN Q1HR PRN PO For CIWA 15 or greater; Start 02/13/22 at 00:30; Stop 02/13/22 at 10:49; Status DC Lorazepam (Ativan) 4 mg PRN Q1HR PRN PO For CIWA 8-14 Last administered on 02/13/22at 09:23; Start 02/13/22 at 00:30 Lorazepam (Ativan) 8 mg PRN Q1HR PRN PO For CIWA 15 or greater; Start 02/13/22 at 00:30 Lorazepam (Ativan Inj) 2 mg PRN Q1HR PRN IV For CIWA 8-14; Start 02/13/22 at 00:30 Lorazepam (Ativan Inj) 4 mg PRN Q1HR PRN IV For CIWA 15 or greater; Start 02/13/22 at 00:30 Lorazepam (Ativan Inj) 2 mg PRN Q15MIN PRN IV SEE COMMENTS; Start 02/13/22 at 00:30; Status Cancel Lorazepam (Ativan Inj) 4 mg PRN Q15MIN PRN IV SEE COMMENTS; Start 02/13/22 at 00:30; Status UNV Magnesium Sulfate 50 ml @ 25 mls/hr 1X ONCE IV Last administered on 02/13/22at 01:34; Start 02/13/22 at 02:00; Stop 02/13/22 at 03:59; Status DC Clonidine HCl (Catapres) 0.1 mg PRN Q2HR PRN PO HYPERTENSION; Start 02/13/22 at 01:30 Ceftriaxone Sodium (Rocephin) 1 gm Q24H IVP ; Start 02/13/22 at 11:00 Doxycycline Hyclate (Vibra-Tab) 100 mg BID PO ; Start 02/13/22 at 11:00 Aspirin (Aspirin Chewable) 81 mg DAILY PO ; Start 02/13/22 at 12:00 Tacrolimus (Prograf) 2 mg BID PO ; Start 02/13/22 at 11:00 Active Scripts Active Reported Voltaren Arthritis Pain (Diclofenac Sodium) 20 Gm Gel..gram. 20 Gm TP BID Flonase Allergy Relief (Fluticasone Propionate) 9.9 Ml [place].susp 2 Sprays NS DAILY Praluent Pen (Alirocumab) 75 Mg/1 Ml Pen.injctr 75 Mg SQ Q2WKS Omeprazole 40 Mg Capsule.dr 1 Cap PO DAILY Magnesium Oxide 400 Mg Tablet 1 Tab PO DAILY Allopurinol 300 Mg Tablet 0.5 Tab PO QODAY Allopurinol 300 Mg Tablet 1 Tab PO QODAY Cellcept (Mycophenolate Mofetil) 500 Mg Tablet 2 Tab PO BID D3 + K2 Dots 1,000 Units Tab (Vitamin D3/Vitamin K2) 1 Each Tab.rapdis 1 Tab PO DAILY 30 Days Fish Oil 1,000 Mg Softgel ([place]-3 Fatty Acids/Fish Oil) 1 Each Capsule 1 Cap PO DAILY 30 Days Coreg (Carvedilol) 25 Mg Tablet 25 Mg PO BIDWMEALS Prograf (Tacrolimus) 1 Mg Capsule 1 Cap PO HS Prograf (Tacrolimus) 1 Mg Capsule 2 Cap PO DAILY08 PRN [repa] Unknown Strength Unknown Dose Aspirin 81 Mg Tab.chew 81 Mg PO DAILY Allergies Allergies: Coded Allergies: No Known Drug Allergies (Unverified , 02/12/22) ROS Review of System As per HPI, rest of the ROS is negative Physical Exam Physical Exam General: No acute distress HEENT: Atraumatic, OM moist Neck Supple Lungs: Clear to auscultation, Non labored Heart: Regular rate Abdomen: Soft, Obese , NT. No Transplant Tenderness Extremities: No edema, No cyanosis Skin: No breakdown, No rash Neuro: grossly normal Psych/Mental Status: flat affect , Poor historian No bull, No SP or cva tenderness Vital Signs Vital Signs Date Time Temp Pulse Resp B/P (MAP) Pulse Ox O2 Delivery O2 Flow Rate FiO2 02/13/22 08:00 Room Air 2.0 02/13/22 07:00 98.2 109 19 131/77 (95) 99 98.2 Assessment & Plan Renal Tx Resume home Immunosuppressants - Cellcept and Prograf per patient . Follows at with [place] [employer]. States Baseline Creat 2's. Please Obtain records from . Discussed with Nursing staff ANSHUL on CKD - Vasomotor ; baseline unavailable, per patient Cr 2's . UA unremarkable, except few WBC's. Cx pending Supportive care, strict I/O.Maintain fluid balance . Strict I/O HyperKalemia POA - K 7.2, resolved CKD stage 3- possibly, per pt report as above. Awaiting records from Chest pain, atypical. AMI ruled out per cardiology CAD s/p CABG 2013. Follows with MACDr. Jacques Hypertensive urgency; labile Hyperlipidemia; intolerant to statin Diabetes, II H/o CVA Chronic ETOH abuse; withdrawal as per IM Anxiety, depression Chronic Vomiting off and on, Vomited recently. States has seen GI at c/o poor PO intake .Defer to primary Labs Labs Laboratory Tests Test 02/12/22 19:46 02/12/22 20:52 02/12/22 23:10 02/13/22 01:20 White Blood Count 12.1 x10^3/uL (4.0-11.0) 8.0 x10^3/uL (4.0-11.0) Red Blood Count 5.71 x10^6/uL (4.30-5.70) 5.35 x10^6/uL (4.30-5.70) Hemoglobin 16.8 g/dL (13.0-17.5) 16.0 g/dL (13.0-17.5) Hematocrit 49.9 % (39.0-53.0) 46.8 % (39.0-53.0) Mean Corpuscular Volume 87 fL (79-100) 88 fL (79-100) Mean Corpuscular Hemoglobin 29 pg (25-35) 30 pg (25-35) Mean Corpuscular Hemoglobin Concent 34 g/dL (31-37) 34 g/dL (31-37) Red Cell Distribution Width 15.0 % (11.5-14.5) 15.0 % (11.5-14.5) Platelet Count 252 x10^3/uL (140-400) 207 x10^3/uL (140-400) Neutrophils (%) (Auto) 87 % (31-73) 81 % (31-73) Lymphocytes (%) (Auto) 6 % (24-48) 11 % (24-48) Monocytes (%) (Auto) 7 % (0-9) 8 % (0-9) Eosinophils (%) (Auto) 0 % (0-3) 0 % (0-3) Basophils (%) (Auto) 1 % (0-3) 0 % (0-3) Neutrophils # (Auto) 10.5 x10^3/uL (1.8-7.7) 6.5 x10^3/uL (1.8-7.7) Lymphocytes # (Auto) 0.7 x10^3/uL (1.0-4.8) 0.9 x10^3/uL (1.0-4.8) Monocytes # (Auto) 0.9 x10^3/uL (0.0-1.1) 0.6 x10^3/uL (0.0-1.1) Eosinophils # (Auto) 0.0 x10^3/uL (0.0-0.7) 0.0 x10^3/uL (0.0-0.7) Basophils # (Auto) 0.1 x10^3/uL (0.0-0.2) 0.0 x10^3/uL (0.0-0.2) Prothrombin Time 12.6 SEC (11.7-14.0) Prothromb Time International Ratio 1.0 (0.8-1.1) D-Dimer (Tania) 2.24 ug/mlFEU (0.00-0.50) Sodium Level 131 mmol/L (136-145) 133 mmol/L (136-145) Potassium Level 7.2 mmol/L (3.5-5.1) 4.3 mmol/L (3.5-5.1) Chloride Level 91 mmol/L (98-107) 95 mmol/L (98-107) Carbon Dioxide Level 21 mmol/L (21-32) 25 mmol/L (21-32) Anion Gap 19 (6-14) 13 (6-14) Blood Urea Nitrogen 32 mg/dL (8-26) 35 mg/dL (8-26) Creatinine 2.3 mg/dL (0.7-1.3) 2.0 mg/dL (0.7-1.3) Estimated GFR (Cockcroft-Gault) 28.9 41.0 BUN/Creatinine Ratio 14 (6-20) 18 (6-20) Glucose Level 102 mg/dL (70-99) 146 mg/dL (70-99) Calcium Level 10.2 mg/dL (8.5-10.1) 9.6 mg/dL (8.5-10.1) Magnesium Level 1.4 mg/dL (1.8-2.4) Total Bilirubin 1.8 mg/dL (0.2-1.0) 1.7 mg/dL (0.2-1.0) Aspartate Amino Transf (AST/SGOT) 62 U/L (15-37) 44 U/L (15-37) Alanine Aminotransferase (ALT/SGPT) 54 U/L (16-63) 40 U/L (16-63) Alkaline Phosphatase 102 U/L (46-116) 89 U/L (46-116) Troponin I High Sensitivity 34 ng/L (4-75) 53 ng/L (4-75) 57 ng/L (4-75) JZ-Dgb-N-Type Natriuretic Peptide 270 pg/mL (0-124) Total Protein 8.5 g/dL (6.4-8.2) 7.2 g/dL (6.4-8.2) Albumin 4.7 g/dL (3.4-5.0) 4.0 g/dL (3.4-5.0) Albumin/Globulin Ratio 1.2 (1.0-1.7) 1.3 (1.0-1.7) Lipase 53 U/L (73-393) Urine Collection Type Unknown Urine Color (Auto) Yellow Urine Turbidity Clear Urine pH (Auto) 5.5 (<5.0-8.0) Urine Specific [place] 1.022 (1.000-1.030) Urine Protein (Auto) 300 mg/dL (Negative) Urine Glucose (Auto)(UA) Negative mg/dL (Negative) Urine Ketones (Auto) 20 mg/dL (Negative) Urine Blood (Auto) Small (Negative) Urine Nitrite Negative (Negative) Urine Bilirubin (Auto) Negative (Negative) Urine Urobilinogen (Auto) Normal mg/dL (Normal) Urine Leukocyte Esterase (Auto) Negative (Negative) Urine RBC 0 /HPF (0-2) Urine WBC 5-10 /HPF (0-4) Urine Bacteria 0 /HPF (0-FEW) Urine Hyaline Casts Many /HPF Urine Waxy Casts Few /HPF Urine Mucus Marked /LPF Urine Opiates Screen Neg (NEG) Urine Methadone Screen Neg (NEG) Urine Barbiturates Neg (NEG) Urine Phencyclidine Screen Neg (NEG) Urine Amphetamine/Methamphetamine Neg (NEG) Urine Benzodiazepines Screen Neg (NEG) Urine Cocaine Screen Neg (NEG) Urine Cannabinoids Screen Neg (NEG) Urine Ethyl Alcohol Pos (NEG) Segmented Neutrophils % 79 % (35-66) Band Neutrophils % 1 % (0-9) Lymphocytes % 17 % (24-48) Monocytes % 3 % (0-10) Platelet Estimate Adequate (ADEQUATE) Test 02/13/22 08:17 Glucose (Fingerstick) 94 mg/dL (70-99) Laboratory Tests Test 02/12/22 19:46 02/12/22 20:52 02/12/22 23:10 02/13/22 01:20 White Blood Count 12.1 x10^3/uL (4.0-11.0) 8.0 x10^3/uL (4.0-11.0) Red Blood Count 5.71 x10^6/uL (4.30-5.70) 5.35 x10^6/uL (4.30-5.70) Hemoglobin 16.8 g/dL (13.0-17.5) 16.0 g/dL (13.0-17.5) Hematocrit 49.9 % (39.0-53.0) 46.8 % (39.0-53.0) Mean Corpuscular Volume 87 fL (79-100) 88 fL (79-100) Mean Corpuscular Hemoglobin 29 pg (25-35) 30 pg (25-35) Mean Corpuscular Hemoglobin Concent 34 g/dL (31-37) 34 g/dL (31-37) Red Cell Distribution Width 15.0 % (11.5-14.5) 15.0 % (11.5-14.5) Platelet Count 252 x10^3/uL (140-400) 207 x10^3/uL (140-400) Neutrophils (%) (Auto) 87 % (31-73) 81 % (31-73) Lymphocytes (%) (Auto) 6 % (24-48) 11 % (24-48) Monocytes (%) (Auto) 7 % (0-9) 8 % (0-9) Eosinophils (%) (Auto) 0 % (0-3) 0 % (0-3) Basophils (%) (Auto) 1 % (0-3) 0 % (0-3) Neutrophils # (Auto) 10.5 x10^3/uL (1.8-7.7) 6.5 x10^3/uL (1.8-7.7) Lymphocytes # (Auto) 0.7 x10^3/uL (1.0-4.8) 0.9 x10^3/uL (1.0-4.8) Monocytes # (Auto) 0.9 x10^3/uL (0.0-1.1) 0.6 x10^3/uL (0.0-1.1) Eosinophils # (Auto) 0.0 x10^3/uL (0.0-0.7) 0.0 x10^3/uL (0.0-0.7) Basophils # (Auto) 0.1 x10^3/uL (0.0-0.2) 0.0 x10^3/uL (0.0-0.2) Prothrombin Time 12.6 SEC (11.7-14.0) Prothromb Time International Ratio 1.0 (0.8-1.1) D-Dimer (Tania) 2.24 ug/mlFEU (0.00-0.50) Sodium Level 131 mmol/L (136-145) 133 mmol/L (136-145) Potassium Level 7.2 mmol/L (3.5-5.1) 4.3 mmol/L (3.5-5.1) Chloride Level 91 mmol/L (98-107) 95 mmol/L (98-107) Carbon Dioxide Level 21 mmol/L (21-32) 25 mmol/L (21-32) Anion Gap 19 (6-14) 13 (6-14) Blood Urea Nitrogen 32 mg/dL (8-26) 35 mg/dL (8-26) Creatinine 2.3 mg/dL (0.7-1.3) 2.0 mg/dL (0.7-1.3) Estimated GFR (Cockcroft-Gault) 28.9 41.0 BUN/Creatinine Ratio 14 (6-20) 18 (6-20) Glucose Level 102 mg/dL (70-99) 146 mg/dL (70-99) Calcium Level 10.2 mg/dL (8.5-10.1) 9.6 mg/dL (8.5-10.1) Magnesium Level 1.4 mg/dL (1.8-2.4) Total Bilirubin 1.8 mg/dL (0.2-1.0) 1.7 mg/dL (0.2-1.0) Aspartate Amino Transf (AST/SGOT) 62 U/L (15-37) 44 U/L (15-37) Alanine Aminotransferase (ALT/SGPT) 54 U/L (16-63) 40 U/L (16-63) Alkaline Phosphatase 102 U/L (46-116) 89 U/L (46-116) Troponin I High Sensitivity 34 ng/L (4-75) 53 ng/L (4-75) 57 ng/L (4-75) VX-Bpq-A-Type Natriuretic Peptide 270 pg/mL (0-124) Total Protein 8.5 g/dL (6.4-8.2) 7.2 g/dL (6.4-8.2) Albumin 4.7 g/dL (3.4-5.0) 4.0 g/dL (3.4-5.0) Albumin/Globulin Ratio 1.2 (1.0-1.7) 1.3 (1.0-1.7) Lipase 53 U/L (73-393) Urine Collection Type Unknown Urine Color (Auto) Yellow Urine Turbidity Clear Urine pH (Auto) 5.5 (<5.0-8.0) Urine Specific [place] 1.022 (1.000-1.030) Urine Protein (Auto) 300 mg/dL (Negative) Urine Glucose (Auto)(UA) Negative mg/dL (Negative) Urine Ketones (Auto) 20 mg/dL (Negative) Urine Blood (Auto) Small (Negative) Urine Nitrite Negative (Negative) Urine Bilirubin (Auto) Negative (Negative) Urine Urobilinogen (Auto) Normal mg/dL (Normal) Urine Leukocyte Esterase (Auto) Negative (Negative) Urine RBC 0 /HPF (0-2) Urine WBC 5-10 /HPF (0-4) Urine Bacteria 0 /HPF (0-FEW) Urine Hyaline Casts Many /HPF Urine Waxy Casts Few /HPF Urine Mucus Marked /LPF Urine Opiates Screen Neg (NEG) Urine Methadone Screen Neg (NEG) Urine Barbiturates Neg (NEG) Urine Phencyclidine Screen Neg (NEG) Urine Amphetamine/Methamphetamine Neg (NEG) Urine Benzodiazepines Screen Neg (NEG) Urine Cocaine Screen Neg (NEG) Urine Cannabinoids Screen Neg (NEG) Urine Ethyl Alcohol Pos (NEG) Segmented Neutrophils % 79 % (35-66) Band Neutrophils % 1 % (0-9) Lymphocytes % 17 % (24-48) Monocytes % 3 % (0-10) Platelet Estimate Adequate (ADEQUATE) Test 02/13/22 08:17 Glucose (Fingerstick) 94 mg/dL (70-99) Review All relevant outside records, renal labs, imaging studies, telemetry/EKG's were reviewed. Images Images XR CHEST 1V History: Reason: chest pain / Spl. Instructions: / History: Comparison: August 18, 2020 Findings: Mild left basilar linear atelectasis or scarring. No pleural effusion. No pneumothorax. Prior median sternotomy. Unchanged radiopaque density within overlying the right upper chest compared to August 18, 2020, relate to prior postoperative changes. Impression: 1. Mild linear left basilar atelectasis or scarring. YOUNG LYNCH MD Feb 13, 2022 11:31
[2022-02-13] MEDS: ASPIRIN CHEWABLE 81 MG TABLET. PO SCH (11:33)
[2022-02-13] MEDS: DOXYCYCLINE HYCLATE 100 MG TABLET PO SCH ×2 (11:33→19:50)
[2022-02-13] MEDS: cefTRIAXone IV Push 1 GM VIAL. IVP SCH (11:33)
[2022-02-13] MEDS: TACROLIMUS 0.5 MG CAPSULE. PO SCH ×2 (11:34→19:51)
--- NOTE | 2022-02-13 11:46 | PDOC2 ---
KJ MELENDEZ LIP AND GATE BUILDER 02/13/22 1146: CARDIAC CONSULT DATE OF CONSULT Date of Consult DATE: 02/13/22 TIME: 11:43 REASON FOR CONSULT Reason for Consult: Chest pain REFERRING PHYSICIAN Referring Physician: Dr. Cope SOURCE Source: Chart review, Patient HISTORY OF PRESENT ILLNESS HISTORY OF PRESENT ILLNESS This is a 61 yo male who presented secondary to chest pain and shortness of breath. Patient reports he began having pressure in his central chest this weekend while he was incarcerated in [facility] j[facility]. Reports he was not able to take his medications and reports he was under a lot of stress. [place]onne very anxious and developed central chest pressure. [place] slightly short of breath. Pressure did not radiated. Has history of chronic alcoholism for "most of my adult life". Has be to rehab multiple times. Has been drinking heavily recently. Is presently experiencing withdrawal symptoms with diaphoresis and nausea. Has a history of CAD s/p CABG and renal disease s/p transplant. Follow with [facility]. PAST MEDICAL HISTORY Cardiovascular: CAD, HTN, Hyperlipidemia CENTRAL NERVOUS SYSTEM: CVA GI: GERD, GI bleed, Other (appendicitis ) Heme/Onc: Anemia NOS, Other (DVT) Psych: Anxiety, Addictions, Depression Renal/: Chronic renal insuff (s/p transplant ), Benign prostatic enlarg. Endocrine: Diabetes PAST SURGICAL HISTORY Past Surgical History: CABG, Colectomy SOCIAL HISTORY Smoke: Quit ALCOHOL: heavy Drugs: None Lives: Alone CURRENT MEDICATIONS CURRENT MEDICATIONS Current Medications Medications (Trade) Dose Ordered Sig/Twan Route PRN Reason Start Time Stop Time Status Last Admin Dose Admin Fentanyl Citrate (Fentanyl 2ml Vial) 50 mcg PRN Q15MIN PRN IV PAIN GREATER THAN 3/10 02/12/22 20:00 02/13/22 19:59 02/12/22 23:57 Lorazepam (Ativan Inj) 1 mg 1X ONCE IVP 02/12/22 19:45 02/12/22 19:53 DC 02/12/22 20:23 Sodium Chloride 500 ml @ 500 mls/hr 1X ONCE IV 02/12/22 20:00 02/12/22 20:59 DC 02/12/22 20:00 Ondansetron HCl (Zofran) 4 mg 1X ONCE IVP 02/12/22 20:00 02/12/22 20:02 DC 02/12/22 20:22 Calcium Gluconate (Calcium Gluconate) 1,000 mg 1X ONCE IVP 02/12/22 20:15 02/12/22 20:16 DC 02/12/22 20:46 Dextrose (Dextrose 50%-Water Syringe) 25 gm 1X ONCE IV 02/12/22 20:15 02/12/22 20:16 DC 02/12/22 20:46 Insulin Human Regular (HumuLIN R VIAL) 10 unit 1X ONCE IV 02/12/22 20:15 02/12/22 20:16 DC 02/12/22 20:49 Tacrolimus (Prograf) 1 mg 1X STAT PO 02/12/22 20:25 02/12/22 20:37 DC 02/12/22 23:51 Ondansetron HCl (Zofran) 4 mg PRN Q8HRS PRN IVP NAUSEA/VOMITING 02/12/22 20:45 02/13/22 20:44 02/13/22 09:22 Multivitamins 10 ml/Thiamine HCl 100 mg/Folic Acid 1 mg/Sodium Chloride 1,011.2 ml @ 100 mls/ hr DAILY IV 02/13/22 09:00 02/13/22 19:07 02/13/22 09:00 Lorazepam (Ativan) 4 mg PRN Q1HR PRN PO For CIWA 8-14 02/13/22 00:30 02/13/22 09:23 Magnesium Sulfate 50 ml @ 25 mls/hr 1X ONCE IV 02/13/22 02:00 02/13/22 03:59 DC 02/13/22 01:34 Ceftriaxone Sodium (Rocephin) 1 gm Q24H IVP 02/13/22 11:00 02/13/22 11:33 Doxycycline Hyclate (Vibra-Tab) 100 mg BID PO 02/13/22 11:00 02/13/22 11:33 Aspirin (Aspirin Chewable) 81 mg DAILY PO 02/13/22 12:00 02/13/22 11:33 Tacrolimus (Prograf) 2 mg BID PO 02/13/22 11:00 02/13/22 11:34 ALLERGIES ALLERGIES: Coded Allergies: No Known Drug Allergies (Unverified , 02/12/22) ROS Review of System 14 point ROS conducted with pertinent positives noted above in HPI PHYSICAL EXAM General: Alert, Oriented X3, Cooperative, No acute distress HEENT: Atraumatic Lungs: Clear to auscultation Heart: Regular rate Abdomen: Soft Extremities: No edema Skin: No breakdown, No significant lesion Neuro: Normal speech, Sensation intact Psych/Mental Status: Mental status NL, Other (flat affect ) MUSCULOSKELETAL: Osteoarthritic changes both hands VITALS/I&O VITALS/I&O: Vital Signs Date Time Temp Pulse Resp B/P (MAP) Pulse Ox O2 Delivery O2 Flow Rate FiO2 02/13/22 08:00 Room Air 2.0 02/13/22 07:00 98.2 109 19 131/77 (95) 99 98.2 I & O 02/12/22 02/12/22 02/13/22 15:00 23:00 07:00 Intake Total 850 ml Output Total 200 ml Balance 650 ml LABS Lab: Laboratory Tests Test 02/12/22 19:46 02/12/22 20:52 02/12/22 23:10 02/13/22 01:20 White Blood Count 12.1 x10^3/uL (4.0-11.0) H 8.0 x10^3/uL (4.0-11.0) Red Blood Count 5.71 x10^6/uL (4.30-5.70) H 5.35 x10^6/uL (4.30-5.70) Hemoglobin 16.8 g/dL (13.0-17.5) 16.0 g/dL (13.0-17.5) Hematocrit 49.9 % (39.0-53.0) 46.8 % (39.0-53.0) Mean Corpuscular Volume 87 fL (79-100) 88 fL (79-100) Mean Corpuscular Hemoglobin 29 pg (25-35) 30 pg (25-35) Mean Corpuscular Hemoglobin Concent 34 g/dL (31-37) 34 g/dL (31-37) Red Cell Distribution Width 15.0 % (11.5-14.5) H 15.0 % (11.5-14.5) H Platelet Count 252 x10^3/uL (140-400) 207 x10^3/uL (140-400) Neutrophils (%) (Auto) 87 % (31-73) H 81 % (31-73) H Lymphocytes (%) (Auto) 6 % (24-48) L 11 % (24-48) L Monocytes (%) (Auto) 7 % (0-9) 8 % (0-9) Eosinophils (%) (Auto) 0 % (0-3) 0 % (0-3) Basophils (%) (Auto) 1 % (0-3) 0 % (0-3) Neutrophils # (Auto) 10.5 x10^3/uL (1.8-7.7) H 6.5 x10^3/uL (1.8-7.7) Lymphocytes # (Auto) 0.7 x10^3/uL (1.0-4.8) L 0.9 x10^3/uL (1.0-4.8) L Monocytes # (Auto) 0.9 x10^3/uL (0.0-1.1) 0.6 x10^3/uL (0.0-1.1) Eosinophils # (Auto) 0.0 x10^3/uL (0.0-0.7) 0.0 x10^3/uL (0.0-0.7) Basophils # (Auto) 0.1 x10^3/uL (0.0-0.2) 0.0 x10^3/uL (0.0-0.2) Prothrombin Time 12.6 SEC (11.7-14.0) Prothrombin Time INR 1.0 (0.8-1.1) D-Dimer (Tania) 2.24 ug/mlFEU (0.00-0.50) H Sodium Level 131 mmol/L (136-145) L 133 mmol/L (136-145) L Potassium Level 7.2 mmol/L (3.5-5.1) *H 4.3 mmol/L (3.5-5.1) # Chloride Level 91 mmol/L (98-107) L 95 mmol/L (98-107) L Carbon Dioxide Level 21 mmol/L (21-32) 25 mmol/L (21-32) Anion Gap 19 (6-14) H 13 (6-14) Blood Urea Nitrogen 32 mg/dL (8-26) H 35 mg/dL (8-26) H Creatinine 2.3 mg/dL (0.7-1.3) H 2.0 mg/dL (0.7-1.3) H Estimated GFR (Cockcroft-Gault) 28.9 41.0 BUN/Creatinine Ratio 14 (6-20) 18 (6-20) Glucose Level 102 mg/dL (70-99) H 146 mg/dL (70-99) H Calcium Level 10.2 mg/dL (8.5-10.1) H 9.6 mg/dL (8.5-10.1) Magnesium Level 1.4 mg/dL (1.8-2.4) L Total Bilirubin 1.8 mg/dL (0.2-1.0) H 1.7 mg/dL (0.2-1.0) H Aspartate Amino Transferase (AST) 62 U/L (15-37) H 44 U/L (15-37) H Alanine Aminotransferase (ALT) 54 U/L (16-63) 40 U/L (16-63) Alkaline Phosphatase 102 U/L (46-116) 89 U/L (46-116) Troponin I High Sensitivity 34 ng/L (4-75) 53 ng/L (4-75) 57 ng/L (4-75) XE-Gei-E-Type Natriuretic Peptide 270 pg/mL (0-124) H Total Protein 8.5 g/dL (6.4-8.2) H 7.2 g/dL (6.4-8.2) Albumin 4.7 g/dL (3.4-5.0) 4.0 g/dL (3.4-5.0) Albumin/Globulin Ratio 1.2 (1.0-1.7) 1.3 (1.0-1.7) Lipase 53 U/L (73-393) L Urine Collection Type Unknown Urine Color (Auto) Yellow Urine Turbidity Clear Urine pH (Auto) 5.5 (<5.0-8.0) Urine Specific [place] 1.022 (1.000-1.030) Urine Protein (Auto) 300 mg/dL (Negative) Urine Glucose (Auto)(UA) Negative mg/dL (Negative) Urine Ketones (Auto) 20 mg/dL (Negative) Urine Blood (Auto) Small (Negative) Urine Nitrite Negative (Negative) Urine Bilirubin (Auto) Negative (Negative) Urine Urobilinogen (Auto) Normal mg/dL (Normal) Urine Leukocyte Esterase (Auto) Negative (Negative) Urine RBC 0 /HPF (0-2) Urine WBC 5-10 /HPF (0-4) Urine Bacteria 0 /HPF (0-FEW) Urine Hyaline Casts Many /HPF Urine Waxy Casts Few /HPF Urine Mucus Marked /LPF Urine Opiates Screen Neg (NEG) Urine Methadone Screen Neg (NEG) Urine Barbiturates Neg (NEG) Urine Phencyclidine Screen Neg (NEG) Urine Amphetamine/Methamphetamine Neg (NEG) Urine Benzodiazepines Screen Neg (NEG) Urine Cocaine Screen Neg (NEG) Urine Cannabinoids Screen Neg (NEG) Urine Ethyl Alcohol Pos (NEG) Segmented Neutrophils % 79 % (35-66) H Band Neutrophils % 1 % (0-9) Lymphocytes % 17 % (24-48) L Monocytes % 3 % (0-10) Platelet Estimate Adequate (ADEQUATE) Thyroid Stimulating Hormone (TSH) 0.471 uIU/mL (0.358-3.74) Test 02/13/22 08:17 02/13/22 11:34 Glucose (Fingerstick) 94 mg/dL (70-99) 110 mg/dL (70-99) H Laboratory Tests 02/12/22 19:46 02/13/22 01:20 Laboratory Tests 02/12/22 19:46 02/13/22 01:20 ECHOCARDIOGRAM ECHOCARDIOGRAM 01/25/19 - 2-D + DOPPLER ECHOCARDIOGRAM Interpretation Summary LVEF=65% Mild To Moderate Concentric LVH Normal Chamber Dimensions Mitral Valve Non Specific Anterior Leaflet Thickening, No Doming No Pericardial Effusion PASP=22mmHg TAPSE=1.33cm STRESS TEST STRESS TEST 01/25/19 - Procedure: D-SPECT MULTI GATED THALLIUM REGADENOSON MPI STRESS TEST SUMMARY/OPINION: This study is normal with no evidence of significant myocardial ischemia. Left ventricular systolic function is normal. There are no high risk prognostic indicators present. The ECG portion of the study is negative for ischemia. ASSESSMENT/PLAN ASSESSMENT/PLAN 1. Chest pain, atypical. AMI ruled out. 2. CAD s/p CABG 2013. Follows with Dr. Georgie BOWERS 3. Hypertensive urgency; labile 4. Hyperlipidemia; intolerant to statin 5. Diabetes, II 6. ANSHUL on CKD, s/p renal transplant 2010. on CellCept and Prograf. (Cr 1.1 at [facility] on 01/20/22) 7. Hyperkalemia 8. H/o CVA 9. Chronic ETOH abuse; withdrawal as per IM 10. Anxiety, depression Recommendations Resume secondary prevention On ASA, Coreg Intolerant to statins as above No CHRIS/ARB with RI Avoid nephrotoxins Obtain echo to assess LV systolic function Is scheduled for outpatient stress test at [facility] in near future. FAHEEM NICOLAS MD 02/14/22 1259: CARDIAC CONSULT ASSESSMENT/PLAN ASSESSMENT/PLAN Late entry for 02/13/2022 Patient seen and examined. Agree with above nurse practitioner note. KJ MELENDEZ APRN Feb 13, 2022 11:46 FAHEEM NICOLAS MD Feb 14, 2022 12:59
[2022-02-13] MEDS: cloNIDine HCL 0.1 MG TABLET PO PRN (11:49)
[2022-02-13] MEDS ORDERED: MAGNESIUM SULFATE 4GM 100 ML IV ONE (13:30)
--- NOTE | 2022-02-13 15:02 | NUR ---
SS following for discharge planning. SS reviewed pt chart and discussed with pt RN. Pt is from home and is currently on room air. Cardiology and Nephrology following. Pt on IV Rocephin and PO Doxycycline. PAT team referral made for ETOH. Darius from PAT team met with pt and provided resources for [facility] for intensive outpatient services. SS will continue to follow for discharge planning.
[2022-02-13] MEDS: CARVEDILOL 12.5 MG TABLET. PO SCH (17:11)
--- NOTE | 2022-02-13 22:16 | NUR ---
Pt having auditory and visual hallucinations, when nurse walked into room pt was talking to some one, when nurse asked who pt was talking to he stated "Bill George" reoriented patient. notified Dr. Portillo and received orders for IM Haldol 1x. Patient then refused Haldol stating "that is a old drug and is given to lower income patients, i need something better than that like Zyprexa" pt then stated "Im a well educated patient and have been doing this for [address] Portillo. Orders for Zyprexa IM 1x ordered. bed alarm on. reminded patient to call for assistance before ambulating. Will continue to monitor.
[2022-02-13] MEDS ORDERED: HALOPERIDOL LACTATE 5 MG/ML VIAL. IM ONE (22:30)
[2022-02-13] MEDS ORDERED: OLANZapine IM 10 MG VIAL. IM ONE (22:30)
[2022-02-14 02:52] VITALS: BP 138/61
[2022-02-14 04:34] LABS: CALCIUM 9.2 mg/dL (8.5-10.1); CREATININE 1.3 mg/dL (0.7-1.3); GFR 67.5; POTASSIUM 3.4 mmol/L (3.5-5.1)
[2022-02-14 04:41] LABS: CHOLESTEROL/HDL RATIO 1.5
[2022-02-14 06:11] VITALS: BP 132/81
[2022-02-14] MEDS: FOLIC ACID 1 MG TABLET. PO SCH (09:00)
[2022-02-14] MEDS: ASPIRIN CHEWABLE 81 MG TABLET. PO SCH (09:00)
--- NOTE | 2022-02-14 09:34 | PDOC ---
DATE OF SERVICE DATE: 02/14/22 TIME: 09:34 SUBJECTIVE ROS Per nursing patient was very agitated . Currently sleeping OBJECTIVE Vital Signs Vital Signs Date Time Temp Pulse Resp B/P (MAP) Pulse Ox O2 Delivery O2 Flow Rate FiO2 02/14/22 08:00 Room Air 1.5 02/14/22 06:11 97.5 81 18 132/81 (98) 97 97.5 I & 0 Intake and Output 02/14/22 07:00 Intake Total 2189 ml Balance 2189 ml Intake Oral 1360 ml IV Total 829 ml # Voids 3 # Bowel Movements 2 PHYSICAL EXAM Physical Exam General: No acute distress HEENT: Atraumatic, OM moist Neck Supple Lungs: Clear to auscultation, Non labored Heart: Regular rate Abdomen: Soft, Obese , NT. No Transplant Tenderness Extremities: No edema, No cyanosis Skin: No breakdown, No rash Neuro: grossly normal Psych/Mental Status: flat affect , Poor historian No bull, No SP or cva tenderness DIAGNOSIS/ASSESSMENT Assessment & Plan Renal Tx Resume home Immunosuppressants - Cellcept and Prograf per patient . 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 ANSHUL on CKD - Vasomotor ; baseline Cr 1.1 at [facility] on 01/20/22 (per cardiology note) . records pending . UA unremarkable, except few WBC's. Cx No growth Creatinine trending down, Supportive care, strict I/O (not recorded) Maintain fluid balance HyperKalemia POA - K 7.2, resolved CKD stage 2/ 3- possibly, per pt report as above. Awaiting records from Chest pain, atypical. AMI ruled out per cardiology CAD s/p CABG 2013. Follows with Dr. Georgie BOWERS Hypertensive urgency; labile Hyperlipidemia; intolerant to statin Diabetes, II H/o CVA Chronic ETOH abuse; withdrawal as per IM Anxiety, depression Chronic Vomiting off and on, Vomited recently. States has seen GI at c/o poor PO intake .Defer to primary COMMENT/RELEVANT DATA Meds Current Medications Medications (Trade) Dose Ordered Sig/Twan Start Time Stop Time Status Last Admin Dose Admin Acetaminophen (Tylenol) 650 mg PRN Q4HRS PRN 02/12/22 20:45 02/13/22 20:44 DC Aspirin (Aspirin Chewable) 81 mg DAILY 02/13/22 12:00 02/13/22 11:33 81 MG Calcium Gluconate (Calcium Gluconate) 1,000 mg 1X ONCE 02/12/22 20:15 02/12/22 20:16 DC 02/12/22 20:46 1,000 MG Carvedilol (Coreg) 25 mg BIDWMEALS 02/13/22 17:00 02/13/22 17:11 25 MG Ceftriaxone Sodium (Rocephin) 1 gm Q24H 02/13/22 11:00 02/13/22 11:33 1 GM Chlordiazepoxide (Librium) 100 mg PRN Q1HR PRN 02/13/22 00:30 02/13/22 10:49 DC Clonidine HCl (Catapres) 0.1 mg PRN Q2HR PRN 02/13/22 01:30 02/13/22 11:49 0.1 MG Dextrose (Dextrose 50%-Water Syringe) 25 gm 1X ONCE 02/12/22 20:15 02/12/22 20:16 DC 02/12/22 20:46 25 GM Doxycycline Hyclate (Vibra-Tab) 100 mg BID 02/13/22 11:00 02/13/22 19:50 100 MG Fentanyl Citrate (Fentanyl 2ml Vial) 50 mcg PRN Q1HR PRN 02/12/22 20:45 02/13/22 20:44 DC Folic Acid (Folic Acid) 1 mg DAILY 02/14/22 09:00 Haloperidol Lactate (Haldol Inj) 5 mg 1X ONCE 02/13/22 22:30 02/13/22 22:31 DC Insulin Human Regular (HumuLIN R VIAL) 10 unit 1X ONCE 02/12/22 20:15 02/12/22 20:16 DC 02/12/22 20:49 10 UNIT Lorazepam (Ativan Inj) 4 mg PRN Q15MIN PRN 02/13/22 00:30 UNV Lorazepam (Ativan) 8 mg PRN Q1HR PRN 02/13/22 00:30 Magnesium Oxide (Magnesium Oxide) 400 mg DAILY 02/14/22 09:00 Magnesium Sulfate 100 ml @ 25 mls/hr 1X ONCE 02/13/22 13:30 02/13/22 17:29 DC 02/13/22 12:52 25 MLS/HR Multivitamins (Thera M Plus) 1 tab DAILY 02/14/22 09:00 Multivitamins 10 ml/Thiamine HCl 100 mg/Folic Acid 1 mg/Sodium Chloride 1,011.2 ml @ 100 mls/ hr DAILY 02/13/22 09:00 02/13/22 19:07 DC 02/13/22 09:00 100 MLS/HR Olanzapine (ZyPREXA IM) 10 mg 1X ONCE 02/13/22 22:30 02/13/22 22:31 DC 02/13/22 22:35 10 MG Ondansetron HCl (Zofran) 4 mg PRN Q8HRS PRN 02/12/22 20:45 02/13/22 20:44 DC 02/13/22 09:22 4 MG Pantoprazole Sodium (Protonix) 40 mg DAILYAC 02/14/22 07:30 Sodium Chloride 500 ml @ 500 mls/hr 1X ONCE 02/12/22 20:00 02/12/22 20:59 DC 02/12/22 20:00 500 MLS/HR Tacrolimus (Prograf) 2 mg BID 02/13/22 11:00 02/13/22 19:51 2 MG Thiamine Mononitrate (Vitamin B-1) 100 mg DAILY 02/14/22 09:00 Lab Laboratory Tests Test 02/13/22 11:34 02/13/22 13:21 02/13/22 16:52 02/13/22 20:37 Glucose (Fingerstick) 110 mg/dL (70-99) 124 mg/dL (70-99) 112 mg/dL (70-99) Troponin I High Sensitivity 45 ng/L (4-75) Test 02/14/22 03:45 02/14/22 07:36 Sodium Level 135 mmol/L (136-145) Potassium Level 3.4 mmol/L (3.5-5.1) Chloride Level 100 mmol/L (98-107) Carbon Dioxide Level 27 mmol/L (21-32) Anion Gap 8 (6-14) Blood Urea Nitrogen 18 mg/dL (8-26) Creatinine 1.3 mg/dL (0.7-1.3) Estimated GFR (Cockcroft-Gault) 67.5 Glucose Level 102 mg/dL (70-99) Calcium Level 9.2 mg/dL (8.5-10.1) Triglycerides Level 161 mg/dL (0-150) Cholesterol Level 109 mg/dL (0-200) LDL Cholesterol, Calculated 3 mg/dL (0-100) VLDL Cholesterol, Calculated 32 mg/dL (0-40) Non-HDL Cholesterol Calculated 35 mg/dL (0-129) HDL Cholesterol 74 mg/dL (40-60) Cholesterol/HDL Ratio 1.5 Glucose (Fingerstick) 97 mg/dL (70-99) Results All relevant outside records, renal labs, imaging studies, telemetry/EKG's were reviewed. Justicifation of Admission Dx: Justifications for Admission: Justification of Admission Dx: Yes Acute Renal Failure: 3-Fold Rise in Serum YOUNG Serna MD Feb 14, 2022 09:34
[2022-02-14] MEDS: TACROLIMUS 0.5 MG CAPSULE. PO SCH ×2 (10:44→21:18)
[2022-02-14] MEDS: MULTIVITAMIN with MINERAL TABLET. PO SCH (10:44)
[2022-02-14] MEDS: MAGNESIUM OXIDE 400 MG TABLET PO SCH (10:44)
[2022-02-14] MEDS: THIAMINE 100 MG TABLET. PO SCH (10:44)
[2022-02-14] MEDS: cefTRIAXone IV Push 1 GM VIAL. IVP SCH (10:44)
[2022-02-14] MEDS: DOXYCYCLINE HYCLATE 100 MG TABLET PO SCH ×2 (10:45→21:18)
[2022-02-14] MEDS: PANTOPRAZOLE 40 MG TABLET.DR. PO SCH (10:45)
[2022-02-14] MEDS: CARVEDILOL 12.5 MG TABLET. PO SCH ×2 (10:46→17:00)
[2022-02-14 11:04] VITALS: BP 127/76
--- NOTE | 2022-02-14 11:28 | NUR ---
SS following up with discharge planning. SS reviewed pt chart and discussed with pt RN. Pt is currently requiring oxygen at two liters nasal canula. Cardiology and Nephrology following. Pt on IV Rocephin and PO Doxycycline. Not ready. SS will continue to follow for discharge planning.
--- NOTE | 2022-02-14 11:50 | PDOC ---
AJAY STANFORD EATING DISORDER PSYCHOLOGIST 02/14/22 1150: CARDIO Progress Notes Date and Time Date of Service 02/14/2022 Time of Evaluation 1130 Subjective Subjective: No Chest Pain, No shortness of breath Vitals Vitals Vital Signs Date Time Temp Pulse Resp B/P (MAP) Pulse Ox O2 Delivery O2 Flow Rate FiO2 02/14/22 11:04 79 20 127/76 (93) 99 Nasal Cannula 2.0 02/14/22 06:11 97.5 97.5 Weight Weight [ ] Input and Output Intake and Output Intake and Output 02/14/22 07:00 Intake Total 2189 ml Balance 2189 ml Intake Oral 1360 ml IV Total 829 ml # Voids 3 # Bowel Movements 2 Laboratory Labs Laboratory Tests Test 02/13/22 13:21 02/13/22 16:52 02/13/22 20:37 02/14/22 03:45 Troponin I High Sensitivity 45 ng/L (4-75) Glucose (Fingerstick) 124 mg/dL (70-99) 112 mg/dL (70-99) Sodium Level 135 mmol/L (136-145) Potassium Level 3.4 mmol/L (3.5-5.1) Chloride Level 100 mmol/L (98-107) Carbon Dioxide Level 27 mmol/L (21-32) Anion Gap 8 (6-14) Blood Urea Nitrogen 18 mg/dL (8-26) Creatinine 1.3 mg/dL (0.7-1.3) Estimated GFR (Cockcroft-Gault) 67.5 Glucose Level 102 mg/dL (70-99) Calcium Level 9.2 mg/dL (8.5-10.1) Triglycerides Level 161 mg/dL (0-150) Cholesterol Level 109 mg/dL (0-200) LDL Cholesterol, Calculated 3 mg/dL (0-100) VLDL Cholesterol, Calculated 32 mg/dL (0-40) Non-HDL Cholesterol Calculated 35 mg/dL (0-129) HDL Cholesterol 74 mg/dL (40-60) Cholesterol/HDL Ratio 1.5 Test 02/14/22 07:36 02/14/22 10:53 Glucose (Fingerstick) 97 mg/dL (70-99) 96 mg/dL (70-99) Microbiology Micro Microbiology 02/12/22 Urine Culture - Final, Complete Physical Exam HEENT: Neck Supple W Full Motion Chest: Symmetric LUNGS: Other (diminished bases) Heart: RRR (SR) Abdomen: Soft N/T Extremities: No Edema Neurology: confused, other (drowsy) Assessment Assessment 1. Chest pain, atypical. AMI ruled out. 2. CAD s/p CABG 2013. Follows with Dr. Georgie BOWERS 3. Hypertensive urgency; now controlled 4. Hyperlipidemia; intolerant to statin 5. Diabetes, II 6. ANSHUL on CKD, s/p renal transplant 2010. on CellCept and Prograf. (Cr 1.1 at [facility] on 01/20/22) 7. Hyperkalemia: resolved 8. H/o CVA 9. Chronic ETOH abuse; withdrawal as per IM 10. Anxiety, depression 11. Encephalopathy: presently confused Recommendations Resume secondary prevention On ASA, Coreg Intolerant to statins as above No CHRIS/ARB with RI Avoid nephrotoxins Obtain echo to assess LV systolic function Is scheduled for outpatient stress test at [facility] in near future. Justicifation of Admission Dx: Justifications for Admission: Justification of Admission Dx: Yes Acute Renal Failure: 3-Fold Rise in Serum Crea FAHEEM NICOLAS MD 02/17/22 2150: CARDIO Progress Notes Plan Plan Late entry for 02/14/22 Pt. seen and examined. Agree with above RAILROAD CAR PAINTER note. AJAY STANFORD EATING DISORDER PSYCHOLOGIST Feb 14, 2022 11:50 FAHEEM NICOLAS MD Feb 17, 2022 21:50
[2022-02-14] MEDS ORDERED: IV NORMAL SALINE 1000ML BAG 1,000 ML IV ONE (12:30)
[2022-02-14 15:00] VITALS: BP 112/72
--- NOTE | 2022-02-14 17:28 | CARD ---
MR#: [id number] Date of Study: 02/14/2022 Ordering Physician: KJ MELENDEZ, Referring Physician: KJ MELENDEZ, Mavis: Renato Reyes [facility] APPROVED REPORT EXAM: Two-dimensional and M-mode echocardiogram with Doppler and color Doppler. Other Information Quality : FairHR: 80bpm Rhythm : NSR INDICATION Cardiac Disease: CAD Chest Pain Surgery/Intervention CABG: RISK FACTORS Hypertension Hyperlipidemia Diabetes 2D DIMENSIONS Left Atrium(2D)3.2 (1.6-4.0cm)IVSd1.5 (0.7-1.1cm) Aortic Root(2D)3.0 (2.0-3.7cm)LVDd2.7 (3.9-5.9cm) LVOT Diameter2.0 (1.8-2.4cm)PWd1.5 (0.7-1.1cm) LA Gjxdid73 (18-58mL)LVDs2.1 (2.5-4.0cm) FS (%) 23.7 %SV13.7 ml Aortic Valve AoV Peak Huseyin.106.0cm/sAoV VTI17.5cm AO Peak GR.4.5mmHgLVOT Peak Huseyin.98.7cm/s AO Mean GR.3mmHgAVA (VMAX)2.99cm2 Mitral Valve MV E Ocgcdthl66.7cm/sMV DECEL [id number] MV A Rbkhwtve63.8cm/sE/A Ratio0.7 Pulmonary Valve PV Peak Qhebzsnk33.6cm/s Tricuspid Valve TR P. Fiehsphq910fv/sTR Peak Gr.13mmHg LEFT VENTRICLE The left ventricle is normal size. There is mild to moderate concentric left ventricular hypertrophy. The left ventricular systolic function is normal. LV ejection fraction is 55 to 60%. There is normal LV segmental wall motion. Transmitral Doppler flow pattern is Grade I-abnormal relaxation pattern. N o left ventricle thrombus noted on this study. There is no ventricular septal defect visualized. Ther e is no left ventricular aneurysm. There is no mass noted in the left ventricle. RIGHT VENTRICLE The right ventricle is normal size. There is normal right ventricular wall thickness. The right ventr icular systolic function is normal. ATRIA The left atrium size is normal. The right atrium size is normal. The interatrial septum is intact wit h no evidence for an atrial septal defect or patent foramen ovale as noted on 2-D or Doppler imaging. AORTIC VALVE The aortic valve is normal in structure and function. Doppler and Color Flow revealed no significant aortic regurgitation. There is no significant aortic valvular stenosis. There is no aortic valvular v egetation. MITRAL VALVE The mitral valve is thickened but opens well. There is no evidence of mitral valve prolapse. There is no mitral valve stenosis. Doppler and Color-flow revealed trace mitral regurgitation. TRICUSPID VALVE The tricuspid valve is normal in structure and function. Doppler and Color Flow revealed trace tricus pid regurgitation. There is no tricuspid valve prolapse or vegetation. There is no tricuspid valve st enosis. PULMONIC VALVE The pulmonary valve is normal in structure and function. Doppler and Color Flow revealed no pulmonic valvular regurgitation. There is no pulmonic valvular stenosis. GREAT VESSELS The aortic root is normal in size. The ascending aorta is normal in size. The pulmonary artery is nor mal. The IVC is normal in size and collapses >50% with inspiration. PERICARDIAL EFFUSION There is no pleural effusion. There is no evidence of significant pericardial effusion. Critical Notification Critical Value: No <Conclusion> The left ventricle is normal size. The left ventricular systolic function is normal. LV ejection fraction is 55 to 60%. There is mild to moderate concentric left ventricular hypertrophy. Doppler and Color Flow revealed no significant aortic regurgitation. There is no significant aortic valvular stenosis. Doppler and Color-flow revealed trace mitral regurgitation. Doppler and Color Flow revealed trace tricuspid regurgitation. Signed by : Joselito Vinson MD Electronically Approved : 02/14/2022 17:27:59
[2022-02-14 18:44] VITALS: BP 106/56
[2022-02-14 22:30] VITALS: BP 110/64
[2022-02-15 03:20] VITALS: BP 117/58
[2022-02-15] MEDS: ALPRAZolam 0.25 MG TABLET PO PRN ×3 (04:43→20:18)
[2022-02-15 05:18] LABS: CALCIUM 9.2 mg/dL (8.5-10.1); CREATININE 1.4 mg/dL (0.7-1.3); GFR 61.9; POTASSIUM 3.6 mmol/L (3.5-5.1)
[2022-02-15] MEDS: PANTOPRAZOLE 40 MG TABLET.DR. PO SCH (05:53)
[2022-02-15 07:00] VITALS: BP 116/62
--- NOTE | 2022-02-15 07:38 | NUR ---
pt has no IV access this time. pt allowed attempt x2 for new IV placement-unsuccessful . Stated that Barbara could try again later. Notified daysjoanna RN.
[2022-02-15] MEDS: DOXYCYCLINE HYCLATE 100 MG TABLET PO SCH ×2 (08:40→20:18)
[2022-02-15] MEDS: THIAMINE 100 MG TABLET. PO SCH (08:40)
[2022-02-15] MEDS: MULTIVITAMIN with MINERAL TABLET. PO SCH (08:41)
[2022-02-15] MEDS: CARVEDILOL 12.5 MG TABLET. PO SCH ×2 (08:41→16:48)
[2022-02-15] MEDS: FOLIC ACID 1 MG TABLET. PO SCH (08:41)
[2022-02-15] MEDS: ASPIRIN CHEWABLE 81 MG TABLET. PO SCH (08:42)
[2022-02-15] MEDS: TACROLIMUS 0.5 MG CAPSULE. PO SCH ×2 (08:42→20:18)
[2022-02-15] MEDS: MAGNESIUM OXIDE 400 MG TABLET PO SCH (08:42)
[2022-02-15 10:34] VITALS: BP 126/69
[2022-02-15] MEDS ORDERED: ONDANSETRON ODT 4 MG TAB.RAPDIS. PO PRN (11:15)
[2022-02-15] MEDS: cefTRIAXone IV Push 1 GM VIAL. IVP SCH (11:33)
--- NOTE | 2022-02-15 16:22 | PDOC ---
PROGRESS NOTES Date of Service DATE: 02/15/22 TIME: 16:20 Subjective Subjective Patient seen and examined He is feeling better today. Objective Objective Vital Signs Date Time Temp Pulse Resp B/P (MAP) Pulse Ox O2 Delivery O2 Flow Rate FiO2 02/15/22 10:34 98.7 77 18 126/69 (88) 96 Room Air 98.7 02/14/22 11:04 2.0 Intake and Output 02/15/22 07:00 Intake Total 980 ml Balance 980 ml Intake Oral 980 ml # Voids 4 Physical Exam Abdomen: Normal bowel sounds Heart: Regular rate General: No acute distress Lungs: Other (Slightly decreased breath sounds) Assessment Assessment Problems Medical Problems: (1) ANSHUL (acute kidney injury) Status: Acute (2) Chest pain Status: Acute (3) Hyperkalemia Status: Acute 1. Chest pain, atypical. AMI ruled out. Pain resolved. Negative troponin x4. Patient reports he is scheduled for an outpatient stress test at in the near future. 2. CAD s/p CABG 2013. Follows with Dr. Georgie BOWERS 3. Hypertensive urgency; now controlled. Continuing present treatment. 4. Hyperlipidemia; intolerant to statin 5. Diabetes, II 6. ANSHUL on CKD, s/p renal transplant 2010. on CellCept and Prograf. (Cr 1.1 at [facility] on 01/20/22). Followed by renal. Creatinine improved to 1.4 this morning. 7. Hyperkalemia: resolved 8. H/o CVA 9. Chronic ETOH abuse; withdrawal as per IM 10. Anxiety, depression 11. Encephalopathy: Improving. Comment Review of Relevant I have reviewed the following items zulma (where applicable) has been applied. Labs Laboratory Tests Test 02/13/22 16:52 02/13/22 20:37 02/14/22 03:45 02/14/22 07:36 Glucose (Fingerstick) 124 mg/dL (70-99) 112 mg/dL (70-99) 97 mg/dL (70-99) Sodium Level 135 mmol/L (136-145) Potassium Level 3.4 mmol/L (3.5-5.1) Chloride Level 100 mmol/L (98-107) Carbon Dioxide Level 27 mmol/L (21-32) Anion Gap 8 (6-14) Blood Urea Nitrogen 18 mg/dL (8-26) Creatinine 1.3 mg/dL (0.7-1.3) Estimated GFR (Cockcroft-Gault) 67.5 Glucose Level 102 mg/dL (70-99) Calcium Level 9.2 mg/dL (8.5-10.1) Triglycerides Level 161 mg/dL (0-150) Cholesterol Level 109 mg/dL (0-200) LDL Cholesterol, Calculated 3 mg/dL (0-100) VLDL Cholesterol, Calculated 32 mg/dL (0-40) Non-HDL Cholesterol Calculated 35 mg/dL (0-129) HDL Cholesterol 74 mg/dL (40-60) Cholesterol/HDL Ratio 1.5 Test 02/14/22 10:53 02/14/22 16:38 02/14/22 20:24 02/15/22 04:30 Glucose (Fingerstick) 96 mg/dL (70-99) 98 mg/dL (70-99) 124 mg/dL (70-99) Sodium Level 135 mmol/L (136-145) Potassium Level 3.6 mmol/L (3.5-5.1) Chloride Level 102 mmol/L (98-107) Carbon Dioxide Level 27 mmol/L (21-32) Anion Gap 6 (6-14) Blood Urea Nitrogen 18 mg/dL (8-26) Creatinine 1.4 mg/dL (0.7-1.3) Estimated GFR (Cockcroft-Gault) 61.9 Glucose Level 117 mg/dL (70-99) Calcium Level 9.2 mg/dL (8.5-10.1) Test 02/15/22 08:00 02/15/22 11:23 Glucose (Fingerstick) 107 mg/dL (70-99) 120 mg/dL (70-99) Laboratory Tests Test 02/14/22 16:38 02/14/22 20:24 02/15/22 04:30 02/15/22 08:00 Glucose (Fingerstick) 98 mg/dL (70-99) 124 mg/dL (70-99) 107 mg/dL (70-99) Sodium Level 135 mmol/L (136-145) Potassium Level 3.6 mmol/L (3.5-5.1) Chloride Level 102 mmol/L (98-107) Carbon Dioxide Level 27 mmol/L (21-32) Anion Gap 6 (6-14) Blood Urea Nitrogen 18 mg/dL (8-26) Creatinine 1.4 mg/dL (0.7-1.3) Estimated GFR (Cockcroft-Gault) 61.9 Glucose Level 117 mg/dL (70-99) Calcium Level 9.2 mg/dL (8.5-10.1) Test 02/15/22 11:23 Glucose (Fingerstick) 120 mg/dL (70-99) Microbiology 02/12/22 Urine Culture - Final, Complete Medications Current Medications Fentanyl Citrate (Fentanyl 2ml Vial) 50 mcg PRN Q15MIN PRN IV PAIN GREATER THAN 3/10 Last administered on 02/12/22at 23:57; Start 02/12/22 at 20:00; Stop 02/13/22 at 19:59; Status DC Lorazepam (Ativan Inj) 1 mg 1X ONCE IVP Last administered on 02/12/22at 20:23; Start 02/12/22 at 19:45; Stop 02/12/22 at 19:53; Status DC Sodium Chloride 500 ml @ 500 mls/hr 1X ONCE IV Last administered on 02/12/22at 20:00; Start 02/12/22 at 20:00; Stop 02/12/22 at 20:59; Status DC Ondansetron HCl (Zofran) 4 mg 1X ONCE IVP Last administered on 02/12/22at 20:22; Start 02/12/22 at 20:00; Stop 02/12/22 at 20:02; Status DC Calcium Gluconate (Calcium Gluconate) 1,000 mg 1X ONCE IVP Last administered on 02/12/22at 20:46; Start 02/12/22 at 20:15; Stop 02/12/22 at 20:16; Status DC Dextrose (Dextrose 50%-Water Syringe) 25 gm 1X ONCE IV Last administered on 02/12/22at 20:46; Start 02/12/22 at 20:15; Stop 02/12/22 at 20:16; Status DC Insulin Human Regular (HumuLIN R VIAL) 10 unit 1X ONCE IV Last administered on 02/12/22at 20:49; Start 02/12/22 at 20:15; Stop 02/12/22 at 20:16; Status DC Tacrolimus (Prograf) 1 mg 1X STAT PO Last administered on 02/12/22at 23:51; Start 02/12/22 at 20:25; Stop 02/12/22 at 20:37; Status DC Ondansetron HCl (Zofran) 4 mg PRN Q8HRS PRN IVP NAUSEA/VOMITING Last administered on 02/13/22at 09:22; Start 02/12/22 at 20:45; Stop 02/13/22 at 20:44; Status DC Fentanyl Citrate (Fentanyl 2ml Vial) 50 mcg PRN Q1HR PRN IVP PAIN; Start 02/12/22 at 20:45; Stop 02/13/22 at 20:44; Status DC Acetaminophen (Tylenol) 650 mg PRN Q4HRS PRN PO FEVER > 100.3'F; Start 02/12/22 at 20:45; Stop 02/13/22 at 20:44; Status DC Multivitamins 10 ml/Thiamine HCl 100 mg/Folic Acid 1 mg/Sodium Chloride 1,011.2 ml @ 100 mls/ hr DAILY IV Last administered on 02/13/22at 09:00; Start 02/13/22 at 09:00; Stop 02/13/22 at 19:07; Status DC Multivitamins (Thera M Plus) 1 tab DAILY PO Last administered on 02/15/22at 08:41; Start 02/14/22 at 09:00 Folic Acid (Folic Acid) 1 mg DAILY PO Last administered on 02/15/22at 08:41; Start 02/14/22 at 09:00 Thiamine Mononitrate (Vitamin B-1) 100 mg DAILY PO Last administered on 02/15/22at 08:40; Start 02/14/22 at 09:00 Chlordiazepoxide (Librium) 50 mg PRN Q1HR PRN PO For CIWA 8-14; Start 02/13/22 at 00:30; Stop 02/13/22 at 10:49; Status DC Chlordiazepoxide (Librium) 100 mg PRN Q1HR PRN PO For CIWA 15 or greater; Start 02/13/22 at 00:30; Stop 02/13/22 at 10:49; Status DC Lorazepam (Ativan) 4 mg PRN Q1HR PRN PO For CIWA 8-14 Last administered on 02/13/22at 09:23; Start 02/13/22 at 00:30 Lorazepam (Ativan) 8 mg PRN Q1HR PRN PO For CIWA 15 or greater; Start 02/13/22 at 00:30 Lorazepam (Ativan Inj) 2 mg PRN Q1HR PRN IV For CIWA 8-14 Last administered on 02/13/22at 21:25; Start 02/13/22 at 00:30 Lorazepam (Ativan Inj) 4 mg PRN Q1HR PRN IV For CIWA 15 or greater; Start 02/13/22 at 00:30 Lorazepam (Ativan Inj) 2 mg PRN Q15MIN PRN IV SEE COMMENTS; Start 02/13/22 at 00:30; Status Cancel Lorazepam (Ativan Inj) 4 mg PRN Q15MIN PRN IV SEE COMMENTS; Start 02/13/22 at 00:30; Status UNV Magnesium Sulfate 50 ml @ 25 mls/hr 1X ONCE IV Last administered on 02/13/22at 01:34; Start 02/13/22 at 02:00; Stop 02/13/22 at 03:59; Status DC Clonidine HCl (Catapres) 0.1 mg PRN Q2HR PRN PO HYPERTENSION Last administered on 02/13/22at 11:49; Start 02/13/22 at 01:30 Ceftriaxone Sodium (Rocephin) 1 gm Q24H IVP Last administered on 02/15/22 11:33; Start 02/13/22 at 11:00 Doxycycline Hyclate (Vibra-Tab) 100 mg BID PO Last administered on 02/15/22 08:40; Start 02/13/22 at 11:00 Aspirin (Aspirin Chewable) 81 mg DAILY PO Last administered on 02/15/22 08:42; Start 02/13/22 at 12:00 Tacrolimus (Prograf) 2 mg BID PO Last administered on 02/15/22 08:42; Start 02/13/22 at 11:00 Magnesium Sulfate 100 ml @ 25 mls/hr 1X ONCE IV Last administered on 02/13/22at 12:52; Start 02/13/22 at 13:30; Stop 02/14/22 at 12:24; Status DC Magnesium Oxide (Magnesium Oxide) 400 mg DAILY PO Last administered on 02/15/22 08:42; Start 02/14/22 at 09:00 Carvedilol (Coreg) 25 mg BIDWMEALS PO Last administered on 4/23/22at 08:41; Start 02/13/22 at 17:00 Pantoprazole Sodium (Protonix) 40 mg DAILYAC PO Last administered on 02/15/22at 05:53; Start 02/14/22 at 07:30 Haloperidol Lactate (Haldol Inj) 5 mg 1X ONCE IM ; Start 02/13/22 at 22:30; Stop 02/13/22 at 22:31; Status DC Olanzapine (ZyPREXA IM) 10 mg 1X ONCE IM Last administered on 02/13/22at 22:35; Start 02/13/22 at 22:30; Stop 02/14/22 at 12:24; Status DC Sodium Chloride 1,000 ml @ 100 mls/hr 1X ONCE IV Last administered on 02/14/22at 12:30; Start 02/14/22 at 12:30; Stop 02/14/22 at 22:29; Status DC Olanzapine (ZyPREXA ZYDIS) 5 mg PRN DAILY PRN PO HALLUCINATIONS Last administered on 02/14/22at 21:20; Start 02/14/22 at 20:30 Alprazolam (Xanax) 0.25 mg PRN Q4HRS PRN PO ANXIETY / AGITATION Last administered on 02/15/22at 08:47; Start 02/15/22 at 04:45 Ondansetron HCl (Zofran Odt) 4 mg PRN Q6HRS PRN PO NAUSEA/VOMITING Last administered on 02/15/22at 11:33; Start 02/15/22 at 11:15 Active Scripts Active Reported Voltaren Arthritis Pain (Diclofenac Sodium) 20 Gm Gel..gram. 20 Gm TP BID Flonase Allergy Relief (Fluticasone Propionate) 9.9 Ml [place].susp 2 Sprays NS D AILY Praluent Pen (Alirocumab) 75 Mg/1 Ml Pen.injctr 75 Mg SQ Q2WKS Omeprazole 40 Mg Capsule.dr 1 Cap PO DAILY Magnesium Oxide 400 Mg Tablet 1 Tab PO DAILY Allopurinol 300 Mg Tablet 0.5 Tab PO QODAY Allopurinol 300 Mg Tablet 1 Tab PO QODAY Cellcept (Mycophenolate Mofetil) 500 Mg Tablet 2 Tab PO BID D3 + K2 Dots 1,000 Units Tab (Vitamin D3/Vitamin K2) 1 Each Tab.rapdis 1 Tab PO DAILY 30 Days Fish Oil 1,000 Mg Softgel ([place]-3 Fatty Acids/Fish Oil) 1 Each Capsule 1 Cap PO DAILY 30 Days Coreg (Carvedilol) 25 Mg Tablet 25 Mg PO BIDWMEALS Prograf (Tacrolimus) 1 Mg Capsule 1 Cap PO HS Prograf (Tacrolimus) 1 Mg Capsule 2 Cap PO DAILY08 PRN [repa] Unknown Strength Unknown Dose Aspirin 81 Mg Tab.chew 81 Mg PO DAILY Vitals/I & O Vital Sign - Last 24 Hours 02/14/22 02/14/22 02/14/22 02/14/22 17:00 18:44 20:00 22:30 Temp 98.6 98.6 98.6 98.6 Pulse 89 89 78 Resp 16 18 B/P (MAP) 106/56 106/56 (73) 110/64 (79) Pulse Ox 95 96 O2 Delivery Room Air Room Air Room Air 02/15/22 02/15/22 02/15/22 02/15/22 03:20 07:00 08:00 08:41 Temp 98.6 98.1 98.6 98.1 Pulse 80 77 80 Resp 18 18 B/P (MAP) 117/58 (77) 116/62 (80) 117/58 Pulse Ox 93 99 O2 Delivery Room Air Room Air Room Air 02/15/22 10:34 Temp 98.7 98.7 Pulse 77 Resp 18 B/P (MAP) 126/69 (88) Pulse Ox 96 O2 Delivery Room Air Intake and Output 02/14/22 02/14/22 02/15/22 15:00 23:00 07:00 Intake Total 180 ml 800 ml Balance 180 ml 800 ml Justifications for Admission Other Justification OC FAITH MD Feb 15, 2022 16:22
[2022-02-15 19:15] VITALS: BP 143/75
--- NOTE | 2022-02-15 21:13 | PDOC ---
[employer] PROGRESS NOTE Date of Service DOS: Late entry February 14 Chief Complaint Chief Complaint Atypical chest pain with significant cardiac history CAD status post CABG, hypertensive urgency, shortness of breath secondary to bacterial pneumonia on imaging. Type 2 diabetes not on any home meds, status post renal transplant, alcohol abuse with withdrawal, hyperlipidemia -Admitted overnight with chest pain -VT ruled out. 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 On P rograf CellCept. Resumed these nephrology consult -Alcohol withdrawal protocol does appear to be actively withdrawing -Rocephin Doxy for pneumonia treatment. Patient reports handful vomiting episodes suspect possible aspiration. -Home meds as indicated -DVT prophylaxis -Discussed with bedside RN. History of Present Illness History of Present Illness 02/14 Patient evaluated examined at bedside. Was having some auditory and visual hallucinations overnight and I recommended giving Haldol after he refused recommended Zyprexa. May have given to him too high dose as patient very lethargic today cannot be woken up easily and fastly back asleep. Continue current we will discuss with him as mental status improves. Nephrology card iology recommendations reviewed. Vitals/I&O Vitals/I&O: Vital Signs Date Time Temp Pulse Resp B/P (MAP) Pulse Ox O2 Delivery O2 Flow Rate FiO2 02/15/22 19:15 98.7 92 20 143/75 (97) 96 Room Air 98.7 02/14/22 11:04 2.0 I & O 02/14/22 02/14/22 02/15/22 15:00 23:00 07:00 Intake Total 180 ml 800 ml Balance 180 ml 800 ml Physical Exam General: No acute distress Heart: Regular rate Abdomen: Normal bowel sounds Extremities: No edema Skin: No breakdown, No significant lesion Labs Labs: Laboratory Tests Test 02/15/22 04:30 02/15/22 08:00 02/15/22 11:23 02/15/22 16:28 Sodium Level 135 mmol/L (136-145) Potassium Level 3.6 mmol/L (3.5-5.1) Chloride Level 102 mmol/L (98-107) Carbon Dioxide Level 27 mmol/L (21-32) Anion Gap 6 (6-14) Blood Urea Nitrogen 18 mg/dL (8-26) Creatinine 1.4 mg/dL (0.7-1.3) Estimated GFR (Cockcroft-Gault) 61.9 Glucose Level 117 mg/dL (70-99) Calcium Level 9.2 mg/dL (8.5-10.1) Glucose (Fingerstick) 107 mg/dL (70-99) 120 mg/dL (70-99) 117 mg/dL (70-99) Test 02/15/22 20:34 Glucose (Fingerstick) 130 mg/dL (70-99) Assessment and Plan Assessmemt and Plan Problems Medical Problems: (1) ANSHUL (acute kidney injury) Status: Acute (2) Chest pain Status: Acute (3) Hyperkalemia Status: Acute Comment Review of Relevant I have reviewed the following items zulma (where applicable) has been applied. Medications: Current Medications Medications (Trade) Dose Ordered Sig/Twan Route PRN Reason Start Time Stop Time Status Last Admin Dose Admin Alprazolam (Xanax) 0.25 mg PRN Q4HRS PRN PO ANXIETY / AGITATION 02/15/22 04:45 02/15/22 20:18 Ondansetron HCl (Zofran Odt) 4 mg PRN Q6HRS PRN PO NAUSEA/VOMITING 02/15/22 11:15 02/15/22 11:33 Justifications for Admission Other Justification MICHELLE GREEN MD Feb 15, 2022 21:13
--- NOTE | 2022-02-15 21:13 | PDOC ---
[employer] PROGRESS NOTE Date of Service DOS: DATE: 02/15/22 TIME: 21:13 Chief Complaint Chief Complaint Atypical chest pain with significant cardiac history CAD status post CABG, hypertensive urgency, shortness of breath secondary to bacterial pneumonia on imaging. Type 2 diabetes not on any home meds, status post renal transplant, alcohol abuse with withdrawal, hyperlipidemia -Admitted overnight with chest pain -[place] ruled out. 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 On Prograf CellCept. Resumed these nephrology consult -Alcohol withdrawal protocol does appear to be actively withdrawing -Rocephin Doxy for pneumonia treatment. Patient reports handful vomiting episodes suspect possible aspiration. -Home meds as indicated -DVT prophylaxis -Discussed with bedside RN. History of Present Illness History of Present Illness 02/14 Patient evaluated examined at bedside. Was having some auditory and visual hallucinations overnight and I recommended giving Haldol after he refused recommended Zyprexa. May have given to him too high dose as patient very lethargic today cannot be woken up easily and fastly back asleep. Continue current we will discuss with him as mental status improves. Nephrology cardiology recommendations reviewed. Vitals/I&O Vitals/I&O: Vital Signs Date Time Temp Pulse Resp B/P (MAP) Pulse Ox O2 Delivery O2 Flow Rate FiO2 02/15/22 19:15 98.7 92 20 143/75 (97) 96 Room Air 98.7 02/14/22 11:04 2.0 I & O 02/14/22 02/14/22 02/15/22 15:00 23:00 07:00 Intake Total 180 ml 800 ml Balance 180 ml 800 ml Physical Exam General: No acute distress Heart: Regular rate Abdomen: Normal bowel sounds Extremities: No edema Skin: No breakdown, No significant lesion Labs Labs: Laboratory Tests Test 02/15/22 04:30 02/15/22 08:00 02/15/22 11:23 02/15/22 16:28 Sodium Level 135 mmol/L (136-145) Potassium Level 3.6 mmol/L (3.5-5.1) Chloride Level 102 mmol/L (98-107) Carbon Dioxide Level 27 mmol/L (21-32) Anion Gap 6 (6-14) Blood Urea Nitrogen 18 mg/dL (8-26) Creatinine 1.4 mg/dL (0.7-1.3) Estimated GFR (Cockcroft-Gault) 61.9 Glucose Level 117 mg/dL (70-99) Calcium Level 9.2 mg/dL (8.5-10.1) Glucose (Fingerstick) 107 mg/dL (70-99) 120 mg/dL (70-99) 117 mg/dL (70-99) Test 02/15/22 20:34 Glucose (Fingerstick) 130 mg/dL (70-99) Assessment and Plan Assessmemt and Plan Problems Medical Problems: (1) ANSHUL (acute kidney injury) Status: Acute (2) Chest pain Status: Acute (3) Hyperkalemia Status: Acute Comment Review of Relevant I have reviewed the following items zulma (where applicable) has been applied. Medications: Current Medications Medications (Trade) Dose Ordered Sig/Twan Route PRN Reason Start Time Stop Time Status Last Admin Dose Admin Alprazolam (Xanax) 0.25 mg PRN Q4HRS PRN PO ANXIETY / AGITATION 02/15/22 04:45 02/15/22 20:18 Ondansetron HCl (Zofran Odt) 4 mg PRN Q6HRS PRN PO NAUSEA/VOMITING 02/15/22 11:15 02/15/22 11:33 Justifications for Admission Other Justification MICHELLE GREEN MD Feb 15, 2022 21:13
--- NOTE | 2022-02-15 22:46 | NUR ---
At beginning of shift 02/15 PM patient stated that he had a cell phone and couldn't find it. nurse looked all through patient room could not find it. Pt then later stated that he remembers it is at home. Pt did not have cell phone with him on admission. Will continue to monitor.
[2022-02-15 22:52] VITALS: BP 173/91
--- NOTE | 2022-02-15 23:58 | NUR ---
pt wondering in the hallway, full dressed. when asked where he was going stated "oh i was just looking for you, i thought i was missing out on something". walked patient back to room, re oriented. patient states that he is anxious and having weird dreams. Gave medication. Bed in low locked postion, call light in reach will continue to monitor frequently. Pt is not a flight risk at this time.
[2022-02-16 02:17] VITALS: BP 156/86
[2022-02-16] MEDS: ALPRAZolam 0.25 MG TABLET PO PRN ×2 (04:11→19:45)
[2022-02-16 04:47] LABS: CALCIUM 9.6 mg/dL (8.5-10.1); CREATININE 1.4 mg/dL (0.7-1.3); GFR 61.9; POTASSIUM 3.9 mmol/L (3.5-5.1)
[2022-02-16] MEDS: PANTOPRAZOLE 40 MG TABLET.DR. PO SCH (05:05)
[2022-02-16 07:00] VITALS: BP 166/88
[2022-02-16] MEDS: CARVEDILOL 12.5 MG TABLET. PO SCH ×2 (08:00→16:30)
[2022-02-16] MEDS: DOXYCYCLINE HYCLATE 100 MG TABLET PO SCH ×2 (09:00→20:51)
[2022-02-16] MEDS: MULTIVITAMIN with MINERAL TABLET. PO SCH (09:00)
[2022-02-16] MEDS: THIAMINE 100 MG TABLET. PO SCH (09:00)
[2022-02-16] MEDS: MAGNESIUM OXIDE 400 MG TABLET PO SCH (09:00)
[2022-02-16] MEDS: FOLIC ACID 1 MG TABLET. PO SCH (09:00)
[2022-02-16] MEDS: ASPIRIN CHEWABLE 81 MG TABLET. PO SCH (09:00)
[2022-02-16] MEDS: TACROLIMUS 0.5 MG CAPSULE. PO SCH ×2 (09:00→20:51)
[2022-02-16] MEDS: cefTRIAXone IV Push 1 GM VIAL. IVP SCH (10:38)
[2022-02-16 12:51] LABS: BASE EXCESS ABG 3 mmol/L (-3-3); HCO3 ABG 27 mmol/L (21-28); PCO2 ABG 42 mmHg (35-46); PO2 ABG 77 mmHg (65-108); SAT O2 ABG 96 % (92-99)
[2022-02-16 12:53] LABS: FIO2 ABG RA
--- NOTE | 2022-02-16 12:55 | PDOC ---
[employer] PROGRESS NOTE Date of Service DOS: DATE: 02/16/22 TIME: 12:53 Chief Complaint Chief Complaint Atypical chest pain with significant cardiac history CAD status post CABG, hypertensive urgency, shortness of breath secondary to bacterial pneumonia on imaging. Type 2 diabetes not on any home meds, status post renal transplant, alcohol abuse with withdrawal, hyperlipidemia -Admitted overnight with chest pain -[place] ruled out. 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 On Prograf CellCept. Resumed these nephrology consult -Alcohol withdrawal protocol does appear to be actively withdrawing -Rocephin Doxy for pneumonia treatment. Patient reports handful vomiting episodes suspect possible aspiration. -Home meds as indicated -DVT prophylaxis -Discussed with bedside RN. History of Present Illness History of Present Illness 02/15 Patient evaluated examined at bedside. Talking to no one seems seemingly there. Really not providing any sort of history mostly ignored me. We will check labs and check a few more extensive labs for AMS work-up. He may simply be withdraw ing. If felt that lorazepam is not sufficient always option to switch to phenobarbital. We will continue to monitor. Discussed with bedside RN. 02/15 Patient evaluated examined at bedside. Was having some auditory and visual hallucinations overnight and I recommended giving Haldol after he refused recommended Zyprexa. May have given to him too high dose as patient very lethargic today cannot be woken up easily and fastly back asleep. Continue current we will discuss with him as mental status improves. Nephrology cardiology recommendations reviewed. Vitals/I&O Vitals/I&O: Vital Signs Date Time Temp Pulse Resp B/P (MAP) Pulse Ox O2 Delivery O2 Flow Rate FiO2 02/16/22 12:51 Room Air 02/16/22 07:00 80 19 166/88 (114) 94 02/16/22 02:17 97.5 97.5 I & O 02/15/22 02/15/22 02/16/22 15:00 23:00 07:00 Intake Total 180 ml 120 ml Output Total 250 ml 200 ml Balance -70 ml -200 ml 120 ml Physical Exam General: No acute distress Heart: Regular rate Abdomen: Normal bowel sounds Extremities: No edema Skin: No breakdown, No significant lesion Labs Labs: Laboratory Tests Test 02/15/22 16:28 02/15/22 20:34 02/16/22 04:00 02/16/22 07:24 Glucose (Fingerstick) 117 mg/dL (70-99) 130 mg/dL (70-99) 116 mg/dL (70-99) Sodium Level 139 mmol/L (136-145) Potassium Level 3.9 mmol/L (3.5-5.1) Chloride Level 104 mmol/L (98-107) Carbon Dioxide Level 27 mmol/L (21-32) Anion Gap 8 (6-14) Blood Urea Nitrogen 16 mg/dL (8-26) Creatinine 1.4 mg/dL (0.7-1.3) Estimated GFR (Cockcroft-Gault) 61.9 Glucose Level 102 mg/dL (70-99) Calcium Level 9.6 mg/dL (8.5-10.1) Assessment and Plan Assessmemt and Plan Problems Medical Problems: (1) ANSHUL (acute kidney injury) Status: Acute (2) Chest pain Status: Acute (3) Hyperkalemia Status: Acute Comment Review of Relevant I have reviewed the following items zulma (where applicable) has been applied. Justifications for Admission Other Justification MICHELLE GREEN MD Feb 16, 2022 12:55
[2022-02-16 13:22] LABS: BASO % 1 % (0-3); EOS # 0.4 x10^3/uL (0.0-0.7); EOS % 8 % (0-3); HEMATOCRIT 43.2 % (39.0-53.0); HEMOGLOBIN 14.5 g/dL (13.0-17.5); LYMPH # 0.8 x10^3/uL (1.0-4.8); LYMPH % 14 % (24-48); MEAN CORPUSCULAR HEMOGLOBIN 30 pg (25-35); MEAN CORPUSCULAR HGB CONC 34 g/dL (31-37); MEAN CORPUSCULAR VOLUME 88 fL (79-100); MONO # 0.6 x10^3/uL (0.0-1.1); MONO % 11 % (0-9); NEUT # 3.6 x10^3/uL (1.8-7.7); NEUT % 66 % (31-73); PLATELET COUNT 158 x10^3/uL (140-400); RED BLOOD COUNT 4.89 x10^6/uL (4.30-5.70); RED CELL DISTRIBUTION WIDTH 14.4 % (11.5-14.5); WHITE BLOOD COUNT 5.5 x10^3/uL (4.0-11.0)
[2022-02-16 13:42] LABS: ALBUMIN 3.6 g/dL (3.4-5.0); ALBUMIN/GLOBULIN RATIO 0.9 (1.0-1.7); CALCIUM 9.6 mg/dL (8.5-10.1); CREATININE 1.2 mg/dL (0.7-1.3); POTASSIUM 3.7 mmol/L (3.5-5.1); TOTAL BILIRUBIN 0.7 mg/dL (0.2-1.0); TOTAL PROTEIN 7.4 g/dL (6.4-8.2)
--- NOTE | 2022-02-16 14:48 | PDOC ---
PROGRESS NOTES Date of Service DATE: 02/16/22 TIME: 14:46 Subjective Subjective Patient seen and examined He appears more confused today. Objective Objective Vital Signs Date Time Temp Pulse Resp B/P (MAP) Pulse Ox O2 Delivery O2 Flow Rate FiO2 02/16/22 12:51 Room Air 02/16/22 07:00 80 19 166/88 (114) 94 02/16/22 02:17 97.5 97.5 02/14/22 11:04 2.0 Intake and Output 02/16/22 07:00 Intake Total 300 ml Output Total 450 ml Balance -150 ml Intake Oral 300 ml Output Urine Total 450 ml # Voids 5 # Bowel Movements 1 Physical Exam Abdomen: Normal bowel sounds Heart: Regular rate General: No acute distress Lungs: Other (Slightly decreased breath sound) Assessment Assessment Problems Medical Problems: (1) ANSHUL (acute kidney injury) Status: Acute (2) Chest pain Status: Acute (3) Hyperkalemia Status: Acute 1. Chest pain, atypical. AMI ruled out. Pain resolved. Negative troponin x4. Patient reports he is scheduled for an outpatient stress test at in the near future. 2. CAD s/p CABG 2013. Follows with Dr. Georgie BOWERS 3. Hypertensive urgency; now controlled. Continuing present treatment. 4. Hyperlipidemia; intolerant to statin 5. Diabetes, II 6. ANSHUL on CKD, s/p renal transplant 2010. on CellCept and Prograf. (Cr 1.1 at [facility] on 01/20/22). Followed by renal. 7. Hyperkalemia: resolved 8. H/o CVA 9. Chronic ETOH abuse; withdrawal as per IM. Mildly more confused this morning. 10. Anxiety, depression 11. Encephalopathy: More confused this morning as above.. Comment Review of Relevant I have reviewed the following items zulma (where applicable) has been applied. Labs Laboratory Tests Test 02/14/22 16:38 02/14/22 20:24 02/15/22 04:30 02/15/22 08:00 Glucose (Fingerstick) 98 mg/dL (70-99) 124 mg/dL (70-99) 107 mg/dL (70-99) Sodium Level 135 mmol/L (136-145) Potassium Level 3.6 mmol/L (3.5-5.1) Chloride Level 102 mmol/L (98-107) Carbon Dioxide Level 27 mmol/L (21-32) Anion Gap 6 (6-14) Blood Urea Nitrogen 18 mg/dL (8-26) Creatinine 1.4 mg/dL (0.7-1.3) Estimated GFR (Cockcroft-Gault) 61.9 Glucose Level 117 mg/dL (70-99) Calcium Level 9.2 mg/dL (8.5-10.1) Test 02/15/22 11:23 02/15/22 16:28 02/15/22 20:34 02/16/22 04:00 Glucose (Fingerstick) 120 mg/dL (70-99) 117 mg/dL (70-99) 130 mg/dL (70-99) Sodium Level 139 mmol/L (136-145) Potassium Level 3.9 mmol/L (3.5-5.1) Chloride Level 104 mmol/L (98-107) Carbon Dioxide Level 27 mmol/L (21-32) Anion Gap 8 (6-14) Blood Urea Nitrogen 16 mg/dL (8-26) Creatinine 1.4 mg/dL (0.7-1.3) Estimated GFR (Cockcroft-Gault) 61.9 Glucose Level 102 mg/dL (70-99) Calcium Level 9.6 mg/dL (8.5-10.1) Test 02/16/22 07:24 02/16/22 11:51 02/16/22 13:10 Glucose (Fingerstick) 116 mg/dL (70-99) O2 Saturation 96 % (92-99) Arterial Blood pH 7.44 (7.35-7.45) Arterial Blood pCO2 at Patient Temp 42 mmHg (35-46) Arterial Blood pO2 at Patient Temp 77 mmHg (65-108) Arterial Blood HCO3 27 mmol/L (21-28) Arterial Blood Base Excess 3 mmol/L (-3-3) FiO2 Ra White Blood Count 5.5 x10^3/uL (4.0-11.0) Red Blood Count 4.89 x10^6/uL (4.30-5.70) Hemoglobin 14.5 g/dL (13.0-17.5) Hematocrit 43.2 % (39.0-53.0) Mean Corpuscular Volume 88 fL (79-100) Mean Corpuscular Hemoglobin 30 pg (25-35) Mean Corpuscular Hemoglobin Concent 34 g/dL (31-37) Red Cell Distribution Width 14.4 % (11.5-14.5) Platelet Count 158 x10^3/uL (140-400) Neutrophils (%) (Auto) 66 % (31-73) Lymphocytes (%) (Auto) 14 % (24-48) Monocytes (%) (Auto) 11 % (0-9) Eosinophils (%) (Auto) 8 % (0-3) Basophils (%) (Auto) 1 % (0-3) Neutrophils # (Auto) 3.6 x10^3/uL (1.8-7.7) Lymphocytes # (Auto) 0.8 x10^3/uL (1.0-4.8) Monocytes # (Auto) 0.6 x10^3/uL (0.0-1.1) Eosinophils # (Auto) 0.4 x10^3/uL (0.0-0.7) Basophils # (Auto) 0.0 x10^3/uL (0.0-0.2) Sodium Level 138 mmol/L (136-145) Potassium Level 3.7 mmol/L (3.5-5.1) Chloride Level 104 mmol/L (98-107) Carbon Dioxide Level 27 mmol/L (21-32) Anion Gap 7 (6-14) Blood Urea Nitrogen 16 mg/dL (8-26) Creatinine 1.2 mg/dL (0.7-1.3) Estimated GFR (Cockcroft-Gault) 74.0 BUN/Creatinine Ratio 13 (6-20) Glucose Level 115 mg/dL (70-99) Calcium Level 9.6 mg/dL (8.5-10.1) Total Bilirubin 0.7 mg/dL (0.2-1.0) Aspartate Amino Transf (AST/SGOT) 57 U/L (15-37) Alanine Aminotransferase (ALT/SGPT) 54 U/L (16-63) Alkaline Phosphatase 76 U/L (46-116) Total Protein 7.4 g/dL (6.4-8.2) Albumin 3.6 g/dL (3.4-5.0) Albumin/Globulin Ratio 0.9 (1.0-1.7) Laboratory Tests Test 02/15/22 16:28 02/15/22 20:34 02/16/22 04:00 02/16/22 07:24 Glucose (Fingerstick) 117 mg/dL (70-99) 130 mg/dL (70-99) 116 mg/dL (70-99) Sodium Level 139 mmol/L (136-145) Potassium Level 3.9 mmol/L (3.5-5.1) Chloride Level 104 mmol/L (98-107) Carbon Dioxide Level 27 mmol/L (21-32) Anion Gap 8 (6-14) Blood Urea Nitrogen 16 mg/dL (8-26) Creatinine 1.4 mg/dL (0.7-1.3) Estimated GFR (Cockcroft-Gault) 61.9 Glucose Level 102 mg/dL (70-99) Calcium Level 9.6 mg/dL (8.5-10.1) Test 02/16/22 11:51 02/16/22 13:10 O2 Saturation 96 % (92-99) Arterial Blood pH 7.44 (7.35-7.45) Arterial Blood pCO2 at Patient Temp 42 mmHg (35-46) Arterial Blood pO2 at Patient Temp 77 mmHg (65-108) Arterial Blood HCO3 27 mmol/L (21-28) Arterial Blood Base Excess 3 mmol/L (-3-3) FiO2 Ra White Blood Count 5.5 x10^3/uL (4.0-11.0) Red Blood Count 4.89 x10^6/uL (4.30-5.70) Hemoglobin 14.5 g/dL (13.0-17.5) Hematocrit 43.2 % (39.0-53.0) Mean Corpuscular Volume 88 fL (79-100) Mean Corpuscular Hemoglobin 30 pg (25-35) Mean Corpuscular Hemoglobin Concent 34 g/dL (31-37) Red Cell Distribution Width 14.4 % (11.5-14.5) Platelet Count 158 x10^3/uL (140-400) Neutrophils (%) (Auto) 66 % (31-73) Lymphocytes (%) (Auto) 14 % (24-48) Monocytes (%) (Auto) 11 % (0-9) Eosinophils (%) (Auto) 8 % (0-3) Basophils (%) (Auto) 1 % (0-3) Neutrophils # (Auto) 3.6 x10^3/uL (1.8-7.7) Lymphocytes # (Auto) 0.8 x10^3/uL (1.0-4.8) Monocytes # (Auto) 0.6 x10^3/uL (0.0-1.1) Eosinophils # (Auto) 0.4 x10^3/uL (0.0-0.7) Basophils # (Auto) 0.0 x10^3/uL (0.0-0.2) Sodium Level 138 mmol/L (136-145) Potassium Level 3.7 mmol/L (3.5-5.1) Chloride Level 104 mmol/L (98-107) Carbon Dioxide Level 27 mmol/L (21-32) Anion Gap 7 (6-14) Blood Urea Nitrogen 16 mg/dL (8-26) Creatinine 1.2 mg/dL (0.7-1.3) Estimated GFR (Cockcroft-Gault) 74.0 BUN/Creatinine Ratio 13 (6-20) Glucose Level 115 mg/dL (70-99) Calcium Level 9.6 mg/dL (8.5-10.1) Total Bilirubin 0.7 mg/dL (0.2-1.0) Aspartate Amino Transf (AST/SGOT) 57 U/L (15-37) Alanine Aminotransferase (ALT/SGPT) 54 U/L (16-63) Alkaline Phosphatase 76 U/L (46-116) Total Protein 7.4 g/dL (6.4-8.2) Albumin 3.6 g/dL (3.4-5.0) Albumin/Globulin Ratio 0.9 (1.0-1.7) Microbiology 02/12/22 Urine Culture - Final, Complete Medications Current Medications Fentanyl Citrate (Fentanyl 2ml Vial) 50 mcg PRN Q15MIN PRN IV PAIN GREATER THAN 3/10 Last administered on 02/12/22at 23:57; Start 02/12/22 at 20:00; Stop 02/13/22 at 19:59; Status DC Lorazepam (Ativan Inj) 1 mg 1X ONCE IVP Last administered on 02/12/22at 20:23; Start 02/12/22 at 19:45; Stop 02/12/22 at 19:53; Status DC Sodium Chloride 500 ml @ 500 mls/hr 1X ONCE IV Last administered on 02/12/22at 20:00; Start 02/12/22 at 20:00; Stop 02/12/22 at 20:59; Status DC Ondansetron HCl (Zofran) 4 mg 1X ONCE IVP Last administered on 02/12/22at 20:22; Start 02/12/22 at 20:00; Stop 02/12/22 at 20:02; Status DC Calcium Gluconate (Calcium Gluconate) 1,000 mg 1X ONCE IVP Last administered on 02/12/22at 20:46; Start 02/12/22 at 20:15; Stop 02/12/22 at 20:16; Status DC Dextrose (Dextrose 50%-Water Syringe) 25 gm 1X ONCE IV Last administered on 02/12/22at 20:46; Start 02/12/22 at 20:15; Stop 02/12/22 at 20:16; Status DC Insulin Human Regular (HumuLIN R VIAL) 10 unit 1X ONCE IV Last administered on 02/12/22at 20:49; Start 02/12/22 at 20:15; Stop 02/12/22 at 20:16; Status DC Tacrolimus (Prograf) 1 mg 1X STAT PO Last administered on 02/12/22at 23:51; Start 02/12/22 at 20:25; Stop 02/12/22 at 20:37; Status DC Ondansetron HCl (Zofran) 4 mg PRN Q8HRS PRN IVP NAUSEA/VOMITING Last administered on 02/13/22at 09:22; Start 02/12/22 at 20:45; Stop 02/13/22 at 20:44; Status DC Fentanyl Citrate (Fentanyl 2ml Vial) 50 mcg PRN Q1HR PRN IVP PAIN; Start 02/12/22 at 20:45; Stop 02/13/22 at 20:44; Status DC Acetaminophen (Tylenol) 650 mg PRN Q4HRS PRN PO FEVER > 100.3'F; Start 02/12/22 at 20:45; Stop 02/13/22 at 20:44; Status DC Multivitamins 10 ml/Thiamine HCl 100 mg/Folic Acid 1 mg/Sodium Chloride 1,011.2 ml @ 100 mls/ hr DAILY IV Last administered on 02/13/22at 09:00; Start 02/13/22 at 09:00; Stop 02/13/22 at 19:07; Status DC Multivitamins (Thera M Plus) 1 tab DAILY PO Last administered on 02/15/22at 08:41; Start 02/14/22 at 09:00 Folic Acid (Folic Acid) 1 mg DAILY PO Last administered on 02/15/22at 08:41; Start 02/14/22 at 09:00 Thiamine Mononitrate (Vitamin B-1) 100 mg DAILY PO Last administered on 02/15/22at 08:40; Start 02/14/22 at 09:00 Chlordiazepoxide (Librium) 50 mg PRN Q1HR PRN PO For CIWA 8-14; Start 02/13/22 at 00:30; Stop 02/13/22 at 10:49; Status DC Chlordiazepoxide (Librium) 100 mg PRN Q1HR PRN PO For CIWA 15 or greater; Start 02/13/22 at 00:30; Stop 02/13/22 at 10:49; Status DC Lorazepam (Ativan) 4 mg PRN Q1HR PRN PO For CIWA 8-14 Last administered on 02/13/22at 09:23; Start 02/13/22 at 00:30 Lorazepam (Ativan) 8 mg PRN Q1HR PRN PO For CIWA 15 or greater; Start 02/13/22 at 00:30 Lorazepam (Ativan Inj) 2 mg PRN Q1HR PRN IV For CIWA 8-14 Last administered on 02/16/22at 13:45; Start 02/13/22 at 00:30 Lorazepam (Ativan Inj) 4 mg PRN Q1HR PRN IV For CIWA 15 or greater Last administered on 02/16/22at 04:18; Start 02/13/22 at 00:30 Lorazepam (Ativan Inj) 2 mg PRN Q15MIN PRN IV SEE COMMENTS; Start 02/13/22 at 00:30; Status Cancel Lorazepam (Ativan Inj) 4 mg PRN Q15MIN PRN IV SEE COMMENTS; Start 02/13/22 at 00:30; Status UNV Magnesium Sulfate 50 ml @ 25 mls/hr 1X ONCE IV Last administered on 02/13/22at 01:34; Start 02/13/22 at 02:00; Stop 02/13/22 at 03:59; Status DC Clonidine HCl (Catapres) 0.1 mg PRN Q2HR PRN PO HYPERTENSION Last administered on 02/13/22 11:49; Start 02/13/22 at 01:30 Ceftriaxone Sodium (Rocephin) 1 gm Q24H IVP Last administered on 02/15/22 11:33; Start 02/13/22 at 11:00 Doxycycline Hyclate (Vibra-Tab) 100 mg BID PO Last administered on 02/15/22 20:18; Start 02/13/22 at 11:00 Aspirin (Aspirin Chewable) 81 mg DAILY PO Last administered on 02/15/22 08:42; Start 02/13/22 at 12:00 Tacrolimus (Prograf) 2 mg BID PO Last administered on 02/15/22 20:18; Start 02/13/22 at 11:00 Magnesium Sulfate 100 ml @ 25 mls/hr 1X ONCE IV Last administered on 02/13/22at 12:52; Start 02/13/22 at 13:30; Stop 02/14/22 at 12:24; Status DC Magnesium Oxide (Magnesium Oxide) 400 mg DAILY PO Last administered on 02/15/22at 08:42; Start 02/14/22 at 09:00 Carvedilol (Coreg) 25 mg BIDWMEALS PO Last administered on 02/15/22 08:41; Start 02/13/22 at 17:00 Pantoprazole Sodium (Protonix) 40 mg DAILYAC PO Last administered on 02/16/22at 05:05; Start 02/14/22 at 07:30 Haloperidol Lactate (Haldol Inj) 5 mg 1X ONCE IM ; Start 02/13/22 at 22:30; Stop 02/13/22 at 22:31; Status DC Olanzapine (ZyPREXA IM) 10 mg 1X ONCE IM Last administered on 02/13/22at 22:35; Start 02/13/22 at 22:30; Stop 02/14/22 at 12:24; Status DC Sodium Chloride 1,000 ml @ 100 mls/hr 1X ONCE IV Last administered on 02/14/22at 12:30; Start 02/14/22 at 12:30; Stop 02/14/22 at 22:29; Status DC Olanzapine (ZyPREXA ZYDIS) 5 mg PRN DAILY PRN PO HALLUCINATIONS Last administered on 4/23/22at 23:54; Start 02/14/22 at 20:30 Alprazolam (Xanax) 0.25 mg PRN Q4HRS PRN PO ANXIETY / AGITATION Last administered on 02/16/22at 04:11; Start 02/15/22 at 04:45 Ondansetron HCl (Zofran Odt) 4 mg PRN Q6HRS PRN PO NAUSEA/VOMITING Last administered on 02/15/22at 11:33; Start 02/15/22 at 11:15 Active Scripts Active Reported Voltaren Arthritis Pain (Diclofenac Sodium) 20 Gm Gel..gram. 20 Gm TP BID Flonase Allergy Relief (Fluticasone Propionate) 9.9 Ml Metter.susp 2 Sprays NS DAILY Praluent Pen (Alirocumab) 75 Mg/1 Ml Pen.injctr 75 Mg SQ Q2WKS Omeprazole 40 Mg Capsule.dr 1 Cap PO DAILY Magnesium Oxide 400 Mg Tablet 1 Tab PO DAILY Allopurinol 300 Mg Tablet 0.5 Tab PO QODAY Allopurinol 300 Mg Tablet 1 Tab PO QODAY Cellcept (Mycophenolate Mofetil) 500 Mg Tablet 2 Tab PO BID D3 + K2 Dots 1,000 Units Tab (Vitamin D3/Vitamin K2) 1 Each Tab.rapdis 1 Tab PO DAILY 30 Days Fish Oil 1,000 Mg Softgel ([place]-3 Fatty Acids/Fish Oil) 1 Each Capsule 1 Cap PO DAILY 30 Days Coreg (Carvedilol) 25 Mg Tablet 25 Mg PO BIDWMEALS Prograf (Tacrolimus) 1 Mg Capsule 1 Cap PO HS Prograf (Tacrolimus) 1 Mg Capsule 2 Cap PO DAILY08 PRN [repa] Unknown Strength Unknown Dose Aspirin 81 Mg Tab.chew 81 Mg PO DAILY Vitals/I & O Vital Sign - Last 24 Hours 02/15/22 02/15/22 02/15/22 02/16/22 19:15 20:00 22:52 02:17 Temp 98.7 98.1 97.5 98.7 98.1 97.5 Pulse 92 95 88 Resp 20 18 17 B/P (MAP) 143/75 (97) 173/91 (118) 156/86 (109) Pulse Ox 96 95 94 O2 Delivery Room Air Room Air Room Air Room Air 02/16/22 02/16/22 02/16/22 07:00 08:00 12:51 Pulse 80 Resp 19 B/P (MAP) 166/88 (114) Pulse Ox 94 O2 Delivery Room Air Room Air Room Air Intake and Output 02/15/22 02/15/22 02/16/22 15:00 23:00 07:00 Intake Total 180 ml 120 ml Output Total 250 ml 200 ml Balance -70 ml -200 ml 120 ml Justifications for Admission Other Justification OC FAITH MD Feb 16, 2022 14:48
[2022-02-16 15:00] VITALS: BP 141/79
[2022-02-16 19:25] VITALS: BP 154/79
[2022-02-16 22:35] VITALS: BP 174/102
[2022-02-16] MEDS: cloNIDine HCL 0.1 MG TABLET PO PRN (22:53)
[2022-02-17] MEDS: ALPRAZolam 0.25 MG TABLET PO PRN ×3 (01:21→20:36)
[2022-02-17 02:50] VITALS: BP 126/79
[2022-02-17 04:57] LABS: CALCIUM 9.6 mg/dL (8.5-10.1); GFR 91.3; POTASSIUM 3.4 mmol/L (3.5-5.1)
[2022-02-17 07:00] VITALS: BP 103/56
[2022-02-17] MEDS: FOLIC ACID 1 MG TABLET. PO SCH (09:17)
[2022-02-17] MEDS: TACROLIMUS 0.5 MG CAPSULE. PO SCH ×2 (09:17→20:36)
[2022-02-17] MEDS: DOXYCYCLINE HYCLATE 100 MG TABLET PO SCH ×2 (09:17→20:36)
[2022-02-17] MEDS: MAGNESIUM OXIDE 400 MG TABLET PO SCH (09:17)
[2022-02-17] MEDS: THIAMINE 100 MG TABLET. PO SCH (09:17)
[2022-02-17] MEDS: ASPIRIN CHEWABLE 81 MG TABLET. PO SCH (09:17)
[2022-02-17] MEDS: PANTOPRAZOLE 40 MG TABLET.DR. PO SCH (09:17)
[2022-02-17] MEDS: MULTIVITAMIN with MINERAL TABLET. PO SCH (09:17)
[2022-02-17] MEDS: CARVEDILOL 12.5 MG TABLET. PO SCH ×2 (09:18→16:19)
--- NOTE | 2022-02-17 09:49 | PDOC ---
DATE OF SERVICE DATE: 02/17/22 TIME: 09:49 SUBJECTIVE ROS Resting comfortably. No SOB OBJECTIVE Vital Signs Vital Signs Date Time Temp Pulse Resp B/P (MAP) Pulse Ox O2 Delivery O2 Flow Rate FiO2 02/17/22 09:18 78 103/56 02/17/22 08:00 Room Air 02/17/22 07:00 96.8 18 92 96.8 I & 0 Intake and Output 02/17/22 07:00 Intake Total 230 ml Output Total 500 ml Balance -270 ml Intake Oral 230 ml Output Urine Total 500 ml # Voids 3 PHYSICAL EXAM Physical Exam General: No acute distress HEENT: Atraumatic, OM moist Neck Supple Lungs: Clear to auscultation, Non labored Heart: Regular rate Abdomen: Soft, Obese , NT. No Transplant Tenderness Extremities: No edema, No cyanosis Skin: No breakdown, No rash Neuro: grossly normal Psych/Mental Status: flat affect , Poor historian No bull, No SP or cva tenderness DIAGNOSIS/ASSESSMENT Assessment & Plan Renal Tx On home Immunosuppressants . 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 ANSHUL on CKD - Vasomotor ; baseline Cr 1.1 at [facility] on 01/20/22 (per cardiology note) . ANSHUL resolved Supportive care, Maintain fluid balance HyperKalemia POA - K 7.2,poa . currently K mildly low , replace CKD stage 2/ 3- possibly, per pt report as above Chest pain, atypical. AMI ruled out per cardiology CAD s/p CABG 2013. Follows with [facility], Dr. Jacques Hypertensive urgency; labile Hyperlipidemia; intolerant to statin Diabetes, II H/o CVA Chronic ETOH abuse; withdrawal as per IM Anxiety, depression Chronic Vomiting off and on, Vomited recently. States has seen GI at c/o poor PO intake .Defer to primary COMMENT/RELEVANT DATA Meds Current Medications Medications (Trade) Dose Ordered Sig/Twan Start Time Stop Time Status Last Admin Dose Admin Acetaminophen (Tylenol) 650 mg PRN Q4HRS PRN 02/12/22 20:45 02/13/22 20:44 DC Alprazolam (Xanax) 0.25 mg PRN Q4HRS PRN 02/15/22 04:45 02/17/22 01:21 0.25 MG Aspirin (Aspirin Chewable) 81 mg DAILY 02/13/22 12:00 02/17/22 09:17 81 MG Calcium Gluconate (Calcium Gluconate) 1,000 mg 1X ONCE 02/12/22 20:15 02/12/22 20:16 DC 02/12/22 20:46 1,000 MG Carvedilol (Coreg) 25 mg BIDWMEALS 02/13/22 17:00 02/17/22 09:18 25 MG Ceftriaxone Sodium (Rocephin) 1 gm Q24H 02/13/22 11:00 02/15/22 11:33 1 GM Chlordiazepoxide (Librium) 100 mg PRN Q1HR PRN 02/13/22 00:30 02/13/22 10:49 DC Clonidine HCl (Catapres) 0.1 mg PRN Q2HR PRN 02/13/22 01:30 02/16/22 22:53 0.1 MG Dextrose (Dextrose 50%-Water Syringe) 25 gm 1X ONCE 02/12/22 20:15 02/12/22 20:16 DC 02/12/22 20:46 25 GM Doxycycline Hyclate (Vibra-Tab) 100 mg BID 02/13/22 11:00 02/17/22 09:17 100 MG Fentanyl Citrate (Fentanyl 2ml Vial) 50 mcg PRN Q1HR PRN 02/12/22 20:45 02/13/22 20:44 DC Folic Acid (Folic Acid) 1 mg DAILY 02/14/22 09:00 02/17/22 09:17 1 MG Haloperidol Lactate (Haldol Inj) 5 mg 1X ONCE 02/13/22 22:30 02/13/22 22:31 DC Insulin Human Regular (HumuLIN R VIAL) 10 unit 1X ONCE 02/12/22 20:15 02/12/22 20:16 DC 02/12/22 20:49 10 UNIT Lorazepam (Ativan Inj) 4 mg PRN Q15MIN PRN 02/13/22 00:30 UNV Lorazepam (Ativan) 8 mg PRN Q1HR PRN 02/13/22 00:30 Magnesium Oxide (Magnesium Oxide) 400 mg DAILY 02/14/22 09:00 02/17/22 09:17 400 MG Magnesium Sulfate 100 ml @ 25 mls/hr 1X ONCE 02/13/22 13:30 4/22/22 12:24 DC 02/13/22 12:52 25 MLS/HR Multivitamins (Thera M Plus) 1 tab DAILY 02/14/22 09:00 02/17/22 09:17 1 TAB Multivitamins 10 ml/Thiamine HCl 100 mg/Folic Acid 1 mg/Sodium Chloride 1,011.2 ml @ 100 mls/ hr DAILY 02/13/22 09:00 02/13/22 19:07 DC 02/13/22 09:00 100 MLS/HR Olanzapine (ZyPREXA IM) 10 mg 1X ONCE 02/13/22 22:30 02/14/22 12:24 DC 02/13/22 22:35 10 MG Olanzapine (ZyPREXA ZYDIS) 5 mg PRN DAILY PRN 02/14/22 20:30 02/16/22 19:45 5 MG Ondansetron HCl (Zofran Odt) 4 mg PRN Q6HRS PRN 02/15/22 11:15 02/15/22 11:33 4 MG Ondansetron HCl (Zofran) 4 mg PRN Q8HRS PRN 02/12/22 20:45 02/13/22 20:44 DC 02/13/22 09:22 4 MG Pantoprazole Sodium (Protonix) 40 mg DAILYAC 02/14/22 07:30 02/17/22 09:17 40 MG Sodium Chloride 1,000 ml @ 100 mls/hr 1X ONCE 02/14/22 12:30 02/14/22 22:29 DC 02/14/22 12:30 100 MLS/HR Tacrolimus (Prograf) 2 mg BID 02/13/22 11:00 02/17/22 09:17 2 MG Thiamine Mononitrate (Vitamin B-1) 100 mg DAILY 02/14/22 09:00 02/17/22 09:17 100 MG Lab Laboratory Tests Test 02/16/22 11:51 02/16/22 13:10 02/16/22 21:06 02/17/22 04:00 O2 Saturation 96 % (92-99) Arterial Blood pH 7.44 (7.35-7.45) Arterial Blood pCO2 at Patient Temp 42 mmHg (35-46) Arterial Blood pO2 at Patient Temp 77 mmHg (65-108) Arterial Blood HCO3 27 mmol/L (21-28) Arterial Blood Base Excess 3 mmol/L (-3-3) FiO2 Ra White Blood Count 5.5 x10^3/uL (4.0-11.0) Red Blood Count 4.89 x10^6/uL (4.30-5.70) Hemoglobin 14.5 g/dL (13.0-17.5) Hematocrit 43.2 % (39.0-53.0) Mean Corpuscular Volume 88 fL (79-100) Mean Corpuscular Hemoglobin 30 pg (25-35) Mean Corpuscular Hemoglobin Concent 34 g/dL (31-37) Red Cell Distribution Width 14.4 % (11.5-14.5) Platelet Count 158 x10^3/uL (140-400) Neutrophils (%) (Auto) 66 % (31-73) Lymphocytes (%) (Auto) 14 % (24-48) Monocytes (%) (Auto) 11 % (0-9) Eosinophils (%) (Auto) 8 % (0-3) Basophils (%) (Auto) 1 % (0-3) Neutrophils # (Auto) 3.6 x10^3/uL (1.8-7.7) Lymphocytes # (Auto) 0.8 x10^3/uL (1.0-4.8) Monocytes # (Auto) 0.6 x10^3/uL (0.0-1.1) Eosinophils # (Auto) 0.4 x10^3/uL (0.0-0.7) Basophils # (Auto) 0.0 x10^3/uL (0.0-0.2) Sodium Level 138 mmol/L (136-145) 139 mmol/L (136-145) Potassium Level 3.7 mmol/L (3.5-5.1) 3.4 mmol/L (3.5-5.1) Chloride Level 104 mmol/L (98-107) 103 mmol/L (98-107) Carbon Dioxide Level 27 mmol/L (21-32) 27 mmol/L (21-32) Anion Gap 7 (6-14) 9 (6-14) Blood Urea Nitrogen 16 mg/dL (8-26) 13 mg/dL (8-26) Creatinine 1.2 mg/dL (0.7-1.3) 1.0 mg/dL (0.7-1.3) Estimated GFR (Cockcroft-Gault) 74.0 91.3 BUN/Creatinine Ratio 13 (6-20) Glucose Level 115 mg/dL (70-99) 95 mg/dL (70-99) Calcium Level 9.6 mg/dL (8.5-10.1) 9.6 mg/dL (8.5-10.1) Total Bilirubin 0.7 mg/dL (0.2-1.0) Aspartate Amino Transf (AST/SGOT) 57 U/L (15-37) Alanine Aminotransferase (ALT/SGPT) 54 U/L (16-63) Alkaline Phosphatase 76 U/L (46-116) Ammonia 25 mcmol/L (11-34) Total Protein 7.4 g/dL (6.4-8.2) Albumin 3.6 g/dL (3.4-5.0) Albumin/Globulin Ratio 0.9 (1.0-1.7) Glucose (Fingerstick) 108 mg/dL (70-99) Test 02/17/22 08:20 Glucose (Fingerstick) 93 mg/dL (70-99) Results All relevant outside records, renal labs, imaging studies, telemetry/EKG's were reviewed. Justicifation of Admission Dx: Justifications for Admission: Justification of Admission Dx: Yes Acute Renal Failure: 3-Fold Rise in Serum YOUNG Serna MD Feb 17, 2022 09:49
[2022-02-17 10:29] VITALS: BP 114/60
[2022-02-17] MEDS: cefTRIAXone IV Push 1 GM VIAL. IVP SCH (11:17)
--- NOTE | 2022-02-17 12:32 | PDOC ---
CARDIO Progress Notes Date and Time Date of Service 02/17/22 Time of Evaluation 1230 Subjective Subjective: No Chest Pain, No shortness of breath, Other (drowsy) Vitals Vitals Vital Signs Date Time Temp Pulse Resp B/P (MAP) Pulse Ox O2 Delivery O2 Flow Rate FiO2 02/17/22 10:29 96.1 75 18 114/60 (78) 92 Room Air 96.1 Weight Weight [ ] Input and Output Intake and Output Intake and Output 02/17/22 07:00 Intake Total 230 ml Output Total 500 ml Balance -270 ml Intake Oral 230 ml Output Urine Total 500 ml # Voids 3 Laboratory Labs Laboratory Tests Test 02/16/22 13:10 02/16/22 21:06 02/17/22 04:00 02/17/22 08:20 White Blood Count 5.5 x10^3/uL (4.0-11.0) Red Blood Count 4.89 x10^6/uL (4.30-5.70) Hemoglobin 14.5 g/dL (13.0-17.5) Hematocrit 43.2 % (39.0-53.0) Mean Corpuscular Volume 88 fL (79-100) Mean Corpuscular Hemoglobin 30 pg (25-35) Mean Corpuscular Hemoglobin Concent 34 g/dL (31-37) Red Cell Distribution Width 14.4 % (11.5-14.5) Platelet Count 158 x10^3/uL (140-400) Neutrophils (%) (Auto) 66 % (31-73) Lymphocytes (%) (Auto) 14 % (24-48) Monocytes (%) (Auto) 11 % (0-9) Eosinophils (%) (Auto) 8 % (0-3) Basophils (%) (Auto) 1 % (0-3) Neutrophils # (Auto) 3.6 x10^3/uL (1.8-7.7) Lymphocytes # (Auto) 0.8 x10^3/uL (1.0-4.8) Monocytes # (Auto) 0.6 x10^3/uL (0.0-1.1) Eosinophils # (Auto) 0.4 x10^3/uL (0.0-0.7) Basophils # (Auto) 0.0 x10^3/uL (0.0-0.2) Sodium Level 138 mmol/L (136-145) 139 mmol/L (136-145) Potassium Level 3.7 mmol/L (3.5-5.1) 3.4 mmol/L (3.5-5.1) Chloride Level 104 mmol/L (98-107) 103 mmol/L (98-107) Carbon Dioxide Level 27 mmol/L (21-32) 27 mmol/L (21-32) Anion Gap 7 (6-14) 9 (6-14) Blood Urea Nitrogen 16 mg/dL (8-26) 13 mg/dL (8-26) Creatinine 1.2 mg/dL (0.7-1.3) 1.0 mg/dL (0.7-1.3) Estimated GFR (Cockcroft-Gault) 74.0 91.3 BUN/Creatinine Ratio 13 (6-20) Glucose Level 115 mg/dL (70-99) 95 mg/dL (70-99) Calcium Level 9.6 mg/dL (8.5-10.1) 9.6 mg/dL (8.5-10.1) Total Bilirubin 0.7 mg/dL (0.2-1.0) Aspartate Amino Transf (AST/SGOT) 57 U/L (15-37) Alanine Aminotransferase (ALT/SGPT) 54 U/L (16-63) Alkaline Phosphatase 76 U/L (46-116) Ammonia 25 mcmol/L (11-34) Total Protein 7.4 g/dL (6.4-8.2) Albumin 3.6 g/dL (3.4-5.0) Albumin/Globulin Ratio 0.9 (1.0-1.7) Glucose (Fingerstick) 108 mg/dL (70-99) 93 mg/dL (70-99) Test 02/17/22 11:26 Glucose (Fingerstick) 93 mg/dL (70-99) Microbiology Micro Microbiology 02/12/22 Urine Culture - Final, Complete Physical Exam HEENT: Neck Supple W Full Motion Chest: Symmetric LUNGS: Other (diminished bases) Heart: RRR (SR) Abdomen: Soft N/T Extremities: No Edema Neurology: confused, other (drowsy) Assessment Assessment 1. Chest pain, atypical. AMI ruled out. 2. CAD s/p CABG 2013. Follows with [facility], Dr. Genton. Echo with preserved LV systolic function 3. Hypertensive urgency; now controlled 4. Hyperlipidemia; intolerant to statin 5. Diabetes, II 6. ANSHUL on CKD, s/p renal transplant 2011. on CellCept and Prograf. (Cr 1.1 at [facility] on 01/20/22). iproved 7. Hyperkalemia: resolved 8. H/o CVA 9. Chronic ETOH abuse 10. Anxiety, depression 11. Encephalopathy: remains confused Recommendations Secondary prevention On ASA, Coreg Intolerant to statins as above Outpatient stress test at [facility] as perviously scheduled Management of withdrawal as per IM Justicifation of Admission Dx: Justifications for Admission: Justification of Admission Dx: Yes Acute Renal Failure: 3-Fold Rise in Serum Crea KJ MELENDEZ APRN Feb 17, 2022 12:31
--- NOTE | 2022-02-17 13:33 | NUR ---
SS following up with discharge planning. SS reviewed pt chart and discussed with pt RN. Pt is currently on room air. Pt on IV Rocephin. Discharge plan is currently to home when medically ready for discharge. SS will continue to follow for discharge planning.
[2022-02-17] MEDS ORDERED: POTASSIUM CHLORIDE 20 MEQ TABLET.ER. PO ONE (14:30)
[2022-02-17 14:31] LABS: CALCIUM 9.6 mg/dL (8.5-10.1); GFR 91.3; POTASSIUM 3.4 mmol/L (3.5-5.1)
--- NOTE | 2022-02-17 14:44 | PDOC ---
[employer] PROGRESS NOTE Date of Service DOS: DATE: 02/17/22 TIME: 14:39 Chief Complaint Chief Complaint Atypical chest pain with significant cardiac history CAD status post CABG hypertensive urgency shortness of breath secondary to bacterial pneumonia: Possibly gram-positive possibly gram-negative Type 2 diabetes not on any home meds status post renal transplant alcohol abuse with withdrawal hyperlipidemia ANSHUL due to vasomotor nephropathy -Admitted overnight with chest pain -IA ruled out. 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 On Prograf CellCept. Resumed these nephrology consult -Alcohol withdrawal protocol does appear to be actively withdrawing -Rocephin Doxy for pneumonia treatment. Patient reports handful vomiting episodes suspect possible aspiration. -Home meds as indicated -DVT prophylaxis -Discussed with bedside RN. History of Present Illness History of Present Illness 02/17: Patient seen and examined bedside. Still actively withdrawing, requiring IV Ativan. We will continue treatment for community-acquired pneumonia. He reportedly has a history of DM2; will obtain hemoglobin A1c. Will obtain CRP to evaluate for ongoing bacterial pneumonia. 02/16 Patient evaluated examined at bedside. Talking to no one seems seemingly there. Really not providing any sort of history mostly ignored me. We will check labs and check a few more extensive labs for AMS work-up. He may simply be withdrawing. If felt that lorazepam is not sufficient always option to switch to phenobarbital. We will continue to monitor. Discussed with bedside RN. 02/15 Patient evaluated examined at bedside. Was having some auditory and visual hallucinations overnight and I recommended giving Haldol after he refused recommended Zyprexa. May have given to him too high dose as patient very lethargic today cannot be woken up easily and fastly back asleep. Continue current we will discuss with him as mental status improves. Nephrology cardiology recommendations reviewed. Vitals/I&O Vitals/I&O: Vital Signs Date Time Temp Pulse Resp B/P (MAP) Pulse Ox O2 Delivery O2 Flow Rate FiO2 02/17/22 10:29 96.1 75 18 114/60 (78) 92 Room Air 96.1 I & O 0 02/16/22 02/16/22 02/17/22 15:00 23:00 07:00 Intake Total 180 ml 50 ml Output Total 500 ml Balance -320 ml 50 ml Physical Exam General: No acute distress Heart: Regular rate Abdomen: Normal bowel sounds Extremities: No edema Skin: No breakdown, No significant lesion Labs Labs: Laboratory Tests Test 02/16/22 21:06 02/17/22 04:00 02/17/22 08:20 02/17/22 11:26 Glucose (Fingerstick) 108 mg/dL (70-99) 93 mg/dL (70-99) 93 mg/dL (70-99) Sodium Level 140 mmol/L (136-145) Potassium Level 3.4 mmol/L (3.5-5.1) Chloride Level 103 mmol/L (98-107) Carbon Dioxide Level 26 mmol/L (21-32) Anion Gap 11 (6-14) Blood Urea Nitrogen 13 mg/dL (8-26) Creatinine 1.0 mg/dL (0.7-1.3) Estimated GFR (Cockcroft-Gault) 91.3 Glucose Level 92 mg/dL (70-99) Calcium Level 9.6 mg/dL (8.5-10.1) Assessment and Plan Assessmemt and Plan Problems Medical Problems: (1) ANSHUL (acute kidney injury) Status: Acute (2) Chest pain Status: Acute (3) Hyperkalemia Status: Acute Comment Review of Relevant I have reviewed the following items zulma (where applicable) has been applied. Medications: Current Medications Medications (Trade) Dose Ordered Sig/Twan Route PRN Reason Start Time Stop Time Status Last Admin Dose Admin Potassium Chloride (Klor-Con) 20 meq 1X ONCE PO 02/17/22 14:30 02/17/22 14:31 DC 02/17/22 14:33 Justifications for Admission Other Justification JULISSA BLANCO MD Feb 17, 2022 14:44
[2022-02-17 15:00] VITALS: BP 119/67
[2022-02-17 19:02] VITALS: BP 104/54
[2022-02-17 23:10] VITALS: BP 114/57
[2022-02-18] MEDS: ALPRAZolam 0.25 MG TABLET PO PRN ×2 (02:04→20:16)
[2022-02-18 02:13] LABS: HEMOGLOBIN A1C 5.8 % (4.8-5.6)
[2022-02-18 03:25] VITALS: BP 108/56
[2022-02-18 06:39] LABS: CALCIUM 9.1 mg/dL (8.5-10.1); CREATININE 1.3 mg/dL (0.7-1.3); GFR 67.5; POTASSIUM 3.5 mmol/L (3.5-5.1)
[2022-02-18 07:00] VITALS: BP 128/69
[2022-02-18] MEDS: FOLIC ACID 1 MG TABLET. PO SCH (08:29)
[2022-02-18] MEDS: CARVEDILOL 12.5 MG TABLET. PO SCH ×2 (08:29→17:14)
[2022-02-18] MEDS: ASPIRIN CHEWABLE 81 MG TABLET. PO SCH (08:30)
[2022-02-18] MEDS: MULTIVITAMIN with MINERAL TABLET. PO SCH (08:30)
[2022-02-18] MEDS: DOXYCYCLINE HYCLATE 100 MG TABLET PO SCH ×2 (08:30→20:13)
[2022-02-18] MEDS: PANTOPRAZOLE 40 MG TABLET.DR. PO SCH (08:30)
[2022-02-18] MEDS: MAGNESIUM OXIDE 400 MG TABLET PO SCH (08:30)
[2022-02-18] MEDS ORDERED: BUPIVACAINE MPF 0.25% 10 ML VIAL. IJ ONE (09:30)
[2022-02-18] MEDS ORDERED: TRIAMCINOLONE PRES.FREE 40 MG/ML VIAL. INT ART ONE (09:30)
--- NOTE | 2022-02-18 10:15 | PDOC ---
[employer] PROGRESS NOTE Date of Service DOS: DATE: 02/18/22 TIME: 10:11 Chief Complaint Chief Complaint Atypical chest pain with significant cardiac history CAD status post CABG hypertensive urgency shortness of breath secondary to bacterial pneumonia: Possibly gram-positive possibly gram-negative Type 2 diabetes not on any home meds status post renal transplant alcohol abuse with withdrawal hyperlipidemia ANSHUL due to vasomotor nephropathy -Admitted overnight with chest pain -AL ruled out. 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 On Prograf CellCept. Resumed these nephrology consult -Alcohol withdrawal protocol does appear to be actively withdrawing -Rocephin Doxy for pneumonia treatment. Patient reports handful vomiting episodes suspect possible aspiration. -Home meds as indicated -DVT prophylaxis -Discussed with bedside RN. History of Present Illness History of Present Illness 02/18: Patient examined at bedside. He reports multiple surgical and transplant history, with residual pain. He is today complaining of sciatic pain. He has previously had injections for sciatic pain with improvement roughly [address] place consult to PM&R for sciatic nerve pain. He is agreeable to alcohol rehab and physical therapy. PAT team following. Will order PT/OT. COVID PCR pending. 02/17: Patient seen and examined bedside. Still actively withdrawing, requiring IV Ativan. We will continue treatment for community-acquired pneumonia. He reportedly has a history of DM2; will obtain hemoglobin A1c. Will obtain CRP to evaluate for ongoing bacterial pneumonia. 02/16 Patient evaluated examined at bedside. Talking to no one seems seemingly there. Really not providing any sort of history mostly ignored me. We will check labs and check a few more extensive labs for AMS work-up. He may simply be withdrawing. If felt that lorazepam is not sufficient always option to switch to phenobarbital. We will continue to monitor. Discussed with bedside RN. 02/15 Patient evaluated examined at bedside. Was having some auditory and visual hallucinations overnight and I recommended giving Haldol after he refused recommended Zyprexa. May have given to him too high dose as patient very lethargic today cannot be woken up easily and fastly back asleep. Continue current we will discuss with him as mental status improves. Nephrology c ardiology recommendations reviewed. Vitals/I&O Vitals/I&O: Vital Signs Date Time Temp Pulse Resp B/P (MAP) Pulse Ox O2 Delivery O2 Flow Rate FiO2 02/18/22 08:29 77 128/69 02/18/22 08:00 Room Air 02/18/22 07:00 97.8 18 97 97.8 I & O 02/17/22 02/17/22 02/18/22 15:00 23:00 07:00 Intake Total 680 ml Output Total 200 ml Balance 480 ml Physical Exam General: Alert, Cooperative, mild distress Heart: Regular rate Lungs: Clear Abdomen: Normal bowel sounds Extremities: No cyanosis, No edema Skin: No breakdown, No significant lesion Labs Labs: Laboratory Tests Test 02/17/22 11:26 02/17/22 17:05 02/17/22 20:48 02/18/22 05:20 Glucose (Fingerstick) 93 mg/dL (70-99) 93 mg/dL (70-99) 122 mg/dL (70-99) Sodium Level 137 mmol/L (136-145) Potassium Level 3.5 mmol/L (3.5-5.1) Chloride Level 102 mmol/L (98-107) Carbon Dioxide Level 23 mmol/L (21-32) Anion Gap 12 (6-14) Blood Urea Nitrogen 22 mg/dL (8-26) Creatinine 1.3 mg/dL (0.7-1.3) Estimated GFR (Cockcroft-Gault) 67.5 Glucose Level 137 mg/dL (70-99) Calcium Level 9.1 mg/dL (8.5-10.1) Test 02/18/22 08:10 Glucose (Fingerstick) 137 mg/dL (70-99) Assessment and Plan Assessmemt and Plan Problems Medical Problems: (1) ANSHUL (acute kidney injury) Status: Acute (2) Chest pain Status: Acute (3) Hyperkalemia Status: Acute Comment Review of Relevant I have reviewed the following items zulma (where applicable) has been applied. Medications: Current Medications Medications (Trade) Dose Ordered Sig/Twan Route PRN Reason Start Time Stop Time Status Last Admin Dose Admin Potassium Chloride (Klor-Con) 20 meq 1X ONCE PO 02/17/22 14:30 02/17/22 14:31 DC 02/17/22 14:33 Justifications for Admission Other Justification JULISSA BLANCO MD Feb 18, 2022 10:15
[2022-02-18 11:00] VITALS: BP 122/65
--- NOTE | 2022-02-18 11:19 | PDOC ---
DATE OF SERVICE DATE: 02/18/22 TIME: 11:18 SUBJECTIVE ROS Resting comfortably. No SOB , No N/V. No acute concerns or complaints OBJECTIVE Vital Signs Vital Signs Date Time Temp Pulse Resp B/P (MAP) Pulse Ox O2 Delivery O2 Flow Rate FiO2 02/18/22 08:29 77 128/69 02/18/22 08:00 Room Air 02/18/22 07:00 97.8 18 97 97.8 I & 0 Intake and Output 02/18/22 07:00 Intake Total 680 ml Output Total 200 ml Balance 480 ml Intake Oral 680 ml Output Urine Total 200 ml # Voids 3 # Bowel Movements 2 PHYSICAL EXAM Physical Exam General: No acute distress HEENT: Atraumatic, OM moist Neck Supple Lungs: Clear to auscultation, Non labored Heart: Regular rate Abdomen: Soft, Obese , NT. No Transplant Tenderness Extremities: No edema, No cyanosis Skin: No breakdown, No rash Neuro: grossly normal Psych/Mental Status: flat affect , Poor historian No bull, No SP or cva tenderness DIAGNOSIS/ASSESSMENT Assessment & Plan Renal Tx On home Immunosuppressants . Per patient s pharmacy he is only On Tacrolimus - confirmed list by nursing Follows at with Tx athletic agent. ANSHUL on CKD - Vasomotor ; baseline Cr 1.1 at [facility] on 01/20/22 (per cardiology note) . ANSHUL resolved Supportive care, Maintain fluid balance HyperKalemia POA - K 7.2,poa . currently K mildly low , replace CKD stage 2/ 3- possibly, per pt report as above Chest pain, atypical. AMI ruled out per cardiology CAD s/p CABG 2013. Follows with [facility], Dr. Jacques Hypertensive urgency; labile Hyperlipidemia; intolerant to statin Diabetes, II H/o CVA Chronic ETOH abuse; withdrawal as per IM Anxiety, depression Chronic Vomiting off and on, Vomited recently. States has seen GI at c/o poor PO intake .Defer to primary COMMENT/RELEVANT DATA Meds Current Medications Medications (Trade) Dose Ordered Sig/Twan Start Time Stop Time Status Last Admin Dose Admin Acetaminophen (Tylenol) 650 mg PRN Q4HRS PRN 02/12/22 20:45 02/13/22 20:44 DC Acetaminophen/ Hydrocodone Bitart (Lortab 7.5/325) 1 tab PRN Q6HRS PRN 02/18/22 09:15 Alprazolam (Xanax) 0.25 mg PRN Q4HRS PRN 02/15/22 04:45 02/18/22 02:04 0.25 MG Aspirin (Aspirin Chewable) 81 mg DAILY 02/13/22 12:00 02/18/22 08:30 81 MG Bupivacaine HCl (Sensorcaine-Mpf 0.25%) 10 ml 1X ONCE 02/18/22 09:30 02/18/22 09:31 DC Calcium Gluconate (Calcium Gluconate) 1,000 mg 1X ONCE 02/12/22 20:15 02/12/22 20:16 DC 02/12/22 20:46 1,000 MG Carvedilol (Coreg) 25 mg BIDWMEALS 02/13/22 17:00 02/18/22 08:29 25 MG Ceftriaxone Sodium (Rocephin) 1 gm Q24H 02/13/22 11:00 02/17/22 11:17 1 GM Chlordiazepoxide (Librium) 100 mg PRN Q1HR PRN 02/13/22 00:30 02/13/22 10:49 DC Clonidine HCl (Catapres) 0.1 mg PRN Q2HR PRN 02/13/22 01:30 02/16/22 22:53 0.1 MG Dextrose (Dextrose 50%-Water Syringe) 25 gm 1X ONCE 02/12/22 20:15 02/12/22 20:16 DC 02/12/22 20:46 25 GM Doxycycline Hyclate (Vibra-Tab) 100 mg BID 02/13/22 11:00 02/18/22 08:30 100 MG Fentanyl Citrate (Fentanyl 2ml Vial) 50 mcg PRN Q1HR PRN 02/12/22 20:45 02/13/22 20:44 DC Folic Acid (Folic Acid) 1 mg DAILY 02/14/22 09:00 02/18/22 08:29 1 MG Haloperidol Lactate (Haldol Inj) 5 mg 1X ONCE 02/13/22 22:30 02/13/22 22:31 DC Insulin Human Regular (HumuLIN R VIAL) 10 unit 1X ONCE 02/12/22 20:15 02/12/22 20:16 DC 02/12/22 20:49 10 UNIT Lorazepam (Ativan Inj) 4 mg PRN Q15MIN PRN 02/13/22 00:30 UNV Lorazepam (Ativan) 8 mg PRN Q1HR PRN 02/13/22 00:30 Magnesium Oxide (Magnesium Oxide) 400 mg DAILY 02/14/22 09:00 02/18/22 08:30 400 MG Magnesium Sulfate 100 ml @ 25 mls/hr 1X ONCE 02/13/22 13:30 02/14/22 12:24 DC 02/13/22 12:52 25 MLS/HR Multivitamins (Thera M Plus) 1 tab DAILY 02/14/22 09:00 02/18/22 08:30 1 TAB Multivitamins 10 ml/Thiamine HCl 100 mg/Folic Acid 1 mg/Sodium Chloride 1,011.2 ml @ 100 mls/ hr DAILY 02/13/22 09:00 02/13/22 19:07 DC 02/13/22 09:00 100 MLS/HR Olanzapine (ZyPREXA IM) 10 mg 1X ONCE 02/13/22 22:30 02/14/22 12:24 DC 02/13/22 22:35 10 MG Olanzapine (ZyPREXA ZYDIS) 5 mg PRN DAILY PRN 02/14/22 20:30 02/17/22 20:36 5 MG Ondansetron HCl (Zofran Odt) 4 mg PRN Q6HRS PRN 02/15/22 11:15 02/15/22 11:33 4 MG Ondansetron HCl (Zofran) 4 mg PRN Q8HRS PRN 02/12/22 20:45 02/13/22 20:44 DC 02/13/22 09:22 4 MG Pantoprazole Sodium (Protonix) 40 mg DAILYAC 02/14/22 07:30 02/18/22 08:30 40 MG Potassium Chloride (Klor-Con) 20 meq 1X ONCE 02/17/22 14:30 02/17/22 14:31 DC 02/17/22 14:33 20 MEQ Sodium Chloride 1,000 ml @ 100 mls/hr 1X ONCE 02/14/22 12:30 02/14/22 22:29 DC 02/14/22 12:30 100 MLS/HR Tacrolimus (Prograf) 2 mg BID 02/13/22 11:00 02/17/22 20:36 2 MG Thiamine Mononitrate (Vitamin B-1) 100 mg DAILY 02/14/22 09:00 02/17/22 09:17 100 MG Triamcinolone Acetonide (Kenalog-40) 40 mg 1X ONCE 02/18/22 09:30 02/18/22 09:31 DC Lab Laboratory Tests Test 02/17/22 11:26 02/17/22 17:05 02/17/22 20:48 02/18/22 05:20 Glucose (Fingerstick) 93 mg/dL (70-99) 93 mg/dL (70-99) 122 mg/dL (70-99) Sodium Level 137 mmol/L (136-145) Potassium Level 3.5 mmol/L (3.5-5.1) Chloride Level 102 mmol/L (98-107) Carbon Dioxide Level 23 mmol/L (21-32) Anion Gap 12 (6-14) Blood Urea Nitrogen 22 mg/dL (8-26) Creatinine 1.3 mg/dL (0.7-1.3) Estimated GFR (Cockcroft-Gault) 67.5 Glucose Level 137 mg/dL (70-99) Calcium Level 9.1 mg/dL (8.5-10.1) Test 02/18/22 08:10 Glucose (Fingerstick) 137 mg/dL (70-99) Results All relevant outside records, renal labs, imaging studies, telemetry/EKG's were reviewed. Justicifation of Admission Dx: Justifications for Admission: Justification of Admission Dx: Yes Acute Renal Failure: 3-Fold Rise in Serum YOUNG Serna MD Feb 18, 2022 11:19
[2022-02-18] MEDS: TACROLIMUS 0.5 MG CAPSULE. PO SCH ×2 (11:58→19:45)
[2022-02-18] MEDS: THIAMINE 100 MG TABLET. PO SCH (11:59)
[2022-02-18] MEDS: cefTRIAXone IV Push 1 GM VIAL. IVP SCH (12:00)
[2022-02-18] MEDS ORDERED: fentaNYL 25MCG/HR PATCH 1 PATCH PATCH.TD72 TD SCH (13:00)
--- NOTE | 2022-02-18 14:03 | NUR ---
SS following up with discharge planning. SS reviewed pt chart and discussed with pt RN. Pt is currently on room air. PT/OT ordered. Discharge plan is currently to home when medically ready for discharge. SS will continue to follow for discharge planning.
[2022-02-18 15:00] VITALS: BP 137/77
--- NOTE | 2022-02-18 16:06 | PDOC ---
KJ MELENDEZ [employer]SEMBLER 02/18/22 1606: CARDIO Progress Notes Date and Time Date of Service 02/18/22 Time of Evaluation 1230 Subjective Subjective: No Chest Pain, No shortness of breath, No Palpitations, No Dizziness Vitals Vitals Vital Signs Date Time Temp Pulse Resp B/P (MAP) Pulse Ox O2 Delivery O2 Flow Rate FiO2 02/18/22 13:36 Room Air 02/18/22 11:00 97.4 69 18 122/65 (84) 95 97.4 Weight Weight [ ] Input and Output Intake and Output Intake and Output 02/18/22 07:00 Intake Total 680 ml Output Total 200 ml Balance 480 ml Intake Oral 680 ml Output Urine Total 200 ml # Voids 3 # Bowel Movements 2 Laboratory Labs Laboratory Tests Test 02/17/22 17:05 02/17/22 20:48 02/18/22 05:20 02/18/22 08:10 Glucose (Fingerstick) 93 mg/dL (70-99) 122 mg/dL (70-99) 137 mg/dL (70-99) Sodium Level 137 mmol/L (136-145) Potassium Level 3.5 mmol/L (3.5-5.1) Chloride Level 102 mmol/L (98-107) Carbon Dioxide Level 23 mmol/L (21-32) Anion Gap 12 (6-14) Blood Urea Nitrogen 22 mg/dL (8-26) Creatinine 1.3 mg/dL (0.7-1.3) Estimated GFR (Cockcroft-Gault) 67.5 Glucose Level 137 mg/dL (70-99) Calcium Level 9.1 mg/dL (8.5-10.1) Test 02/18/22 11:23 Glucose (Fingerstick) 101 mg/dL (70-99) Microbiology Micro Microbiology 02/12/22 Urine Culture - Final, Complete Physical Exam HEENT: Neck Supple W Full Motion Chest: Symmetric LUNGS: Other (diminished bases) Heart: RRR (SR) Abdomen: Soft N/T Extremities: No Edema Neurology: alert, other (drowsy) Assessment Assessment 1. Chest pain, atypical. AMI ruled out. 2. CAD s/p CABG 2013. Follows with Dr. Georgie BOWERS. Echo with preserved LV systolic function 3. Hypertensive urgency; now controlled 4. Hyperlipidemia; intolerant to statin 5. Diabetes, II 6. ANSHUL on CKD, s/p renal transplant 2011. on CellCept and Prograf. (Cr 1.1 at [facility] on 01/20/22). improved 7. Hyperkalemia: resolved 8. H/o CVA 9. Chronic ETOH abuse 10. Anxiety, depression 11. Encephalopathy: more oriented today, but remains drowsy Recommendations Secondary prevention On ASA, Coreg Intolerant to statins Outpatient stress test at [facility] as previously scheduled Management of withdrawal as per IM Supportive care Justicifation of Admission Dx: Justifications for Admission: Justification of Admission Dx: Yes Acute Renal Failure: 3-Fold Rise in Serum Crea FAHEEM NICOLAS MD 02/19/221952: CARDIO Progress Notes Plan Plan Late entry for 02/18/2022 Patient seen and examined. Agree with above nurse practitioner note. Supportive care for now. Outpatient follow-up with [facility]. KJ MELENDEZ APRN Feb 18, 2022 16:06 FAHEEM NICOLAS MD Feb 19, 2022 19:53
--- NOTE | 2022-02-18 16:28 | RAD ---
XR LUMBAR SPINE 1 VIEW History: Reason: lateral view,chronic low back pain / Spl. Instructions: / History: Technique: Lateral radiograph of the lumbar spine. Comparison: None. Findings: Normal vertebral body height and alignment. No acute fracture. Mild degenerative changes with disc sp mike narrowing. Postoperative changes within the abdomen. Mild facet arthropathy. Impression: 1. Mild lumbar spondylosis. Electronically signed by: Alberto Dejesus DO (02/18/2022 4:25 PM) [id number]
[2022-02-18 19:37] VITALS: BP 139/68
[2022-02-18] MEDS: CEFDINIR 300 MG CAPSULE PO SCH (19:45)
--- NOTE | 2022-02-18 21:50 | CONS ---
DATE OF CONSULTATION: 02/18/2022 ATTENDING PHYSICIAN: Dr. Kline. REASON FOR CONSULTATION: The patient was seen at the request of Dr. Kline for rehab evaluation. 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 The patient was admitted on 02/13/2022 to the Emergency Room with chest pain, shortness of breath and headache for about a month. He was recently released from [facility] after he stayed for about 3 days. He is with known diabetes, coronary artery bypass graft, hypertension, neuropathy, intermittent alcohol use, 4-vessel coronary artery bypass graft and colon resection in 2013 and he was on hemodialysis until he had renal transplant done in 2010. He also had chronic lower back pain. Had injection done at [facility] pain clinic about 2-3 years ago with significant help. He recently on a drinking binge, which is why he ended up in the [facility]. The patient admits some balance problems. He admits to tingling and numbness in his feet. He is interested in going to rehab to help with his alcohol use. Past medical history also includes hypertension, hyperlipidemia, cerebrovascular accident, gastroesophageal reflux disease, GI bleeding, appendicitis, anemia, deep venous thrombosis, anxiety, depression, chronic renal insufficiency, status post transplant, benign prostatic enlargement, diabetes mellitus. The patient lives alone, had stairs for him to manage. He admits to some balance problems. The patient had tried multiple narcotic pain medications in the past without any lasting help. He smokes tobacco on occasion. ALLERGIES: The patient is not known allergic to any medication. PHYSICAL EXAMINATION: GENERAL: Today revealed a middle-aged male. He is alert, oriented to time, place and person, follows commands appropriately. NEUROLOGIC: Moves all 4 extremities voluntarily where he had 5/5 grade muscle strength. Deep tendon reflexes are decreased overall with absent ankle jerks. He had equal perception of touch and pinprick sensation bilaterally. He had localized tenderness to palpation over sacroiliac joint area. Straight leg raising test is negative bilaterally. He had painful limited movements of lumbar spine without any paraspinal muscle spasm. The patient is independent with bed mobility and transfers. He feels dizzy when he is standing up. His gait is somewhat ataxic and wide-based, trying to make a few steps at bedside with handheld assistance. ASSESSMENT: A middle-aged male with chronic lower back pain from degenerative disk disease of lumbar vertebrae without any clinical evidence of ongoing lumbar radiculopathy, diabetes mellitus with peripheral neuropathy, acute and chronic alcohol abuse to control his back pain. The patient is status post renal transplant that helped him off hemodialysis in a patient with chronic kidney disease, coronary artery disease, hypertension, hyperlipidemia, status post coronary artery bypass graft, gastroesophageal reflux disease, previous gastrointestinal bleed, appendicitis, anemia, depression, anxiety, benign prostatic hypertrophy, ataxia. RECOMMENDATIONS: Proceed with injecting painful left sacroiliac joint area, which I performed under aseptic skin technique after skin preparation using alcohol swab and he tolerated the procedure satisfactorily. I used Kenalog 40 mg per 1 mL solution mixed with 2 mL of 0.25% Marcaine solution. He tolerated the procedure satisfactorily without any side effects. To ask physical therapy and occupational therapy to see him. Dr. Kline, I appreciate asking me to participate in the care of this interesting patient. I will be glad to see him for followup with you on as needed basis. SENDY DR: Renate TID: [id number]
[2022-02-18 23:59] VITALS: BP 145/70
[2022-02-19] MEDS: ALPRAZolam 0.25 MG TABLET PO PRN ×3 (01:36→13:36)
[2022-02-19] MEDS: HYDROcodone/APAP 7.5/325MG 1 TAB TABLET PO PRN ×3 (01:40→15:17)
[2022-02-19 02:47] VITALS: BP 154/68
[2022-02-19 07:00] VITALS: BP 149/65
[2022-02-19] MEDS: CEFDINIR 300 MG CAPSULE PO SCH (07:51)
[2022-02-19] MEDS: MAGNESIUM OXIDE 400 MG TABLET PO SCH (07:51)
[2022-02-19] MEDS: THIAMINE 100 MG TABLET. PO SCH (07:51)
[2022-02-19] MEDS: ASPIRIN CHEWABLE 81 MG TABLET. PO SCH (07:51)
[2022-02-19] MEDS: PANTOPRAZOLE 40 MG TABLET.DR. PO SCH (07:52)
[2022-02-19] MEDS: DOXYCYCLINE HYCLATE 100 MG TABLET PO SCH (07:52)
[2022-02-19] MEDS: MULTIVITAMIN with MINERAL TABLET. PO SCH (07:52)
[2022-02-19] MEDS: FOLIC ACID 1 MG TABLET. PO SCH (07:52)
[2022-02-19] MEDS: TACROLIMUS 0.5 MG CAPSULE. PO SCH (07:52)
[2022-02-19] MEDS: CARVEDILOL 12.5 MG TABLET. PO SCH (07:52)
--- NOTE | 2022-02-19 10:05 | PDOC ---
DATE OF SERVICE DATE: 02/19/22 TIME: 10:05 SUBJECTIVE ROS Most alert today compared to past few days. Sitting up in chair. No complaints OBJECTIVE Vital Signs Vital Signs Date Time Temp Pulse Resp B/P (MAP) Pulse Ox O2 Delivery O2 Flow Rate FiO2 02/19/22 09:52 95 Room Air 2.0 02/19/22 07:52 100 149/65 02/19/22 07:00 98.6 18 98.6 I & 0 Intake and Output 02/19/22 07:00 Intake Total 1400 ml Output Total 900 ml Balance 500 ml Intake Oral 1400 ml Output Urine Total 900 ml # Voids 1 # Bowel Movements 1 PHYSICAL EXAM Physical Exam neral: No acute distress HEENT: Atraumatic, OM moist Neck Supple Lungs: Clear to auscultation, Non labored Heart: Regular rate Abdomen: Soft, Obese , NT. No Transplant Tenderness Extremities: No edema, No cyanosis Skin: No breakdown, No rash Neuro: grossly normal Psych/Mental Status: flat affect , Poor historian No bull, No SP or cva tenderness DIAGNOSIS/ASSESSMENT Assessment & Plan Renal Tx On home Immunosuppressants . Discussed with Nursing at presentation to restart both of his Tx meds. Nursing confirmed lsit with pts pharmacy that he is only on Tacrolimus (Prograf) Requested records on the day patient was admitted, still not available. Patient reports today that [facility] and he is on Prograf and Cellcept(which he has not been getting here ) . Dw RN (Mathew) to Obtain his current med list . 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 on 01/20/22 (per cardiology note) . ANSHUL resolved Supportive care, Maintain fluid balance HyperKalemia POA - K 7.2,poa . currently K mildly low , replace CKD stage 2/ 3- possibly, per pt report as above Chest pain, atypical. AMI ruled out per cardiology CAD s/p CABG 2013. Follows with Dr. Georgie BOWERS Hypertensive urgency; labile Hyperlipidemia; intolerant to statin Diabetes, II H/o CVA Chronic ETOH abuse; withdrawal as per IM Anxiety, depression Chronic Vomiting off and on, Vomited recently. States has seen GI at c/o poor PO intake .Defer to primary COMMENT/RELEVANT DATA Meds Current Medications Medications (Trade) Dose Ordered Sig/Twan Start Time Stop Time Status Last Admin Dose Admin Acetaminophen (Tylenol) 650 mg PRN Q4HRS PRN 02/12/22 20:45 02/13/22 20:44 DC Acetaminophen/ Hydrocodone Bitart (Lortab 7.5/325) 1 tab PRN Q6HRS PRN 02/18/22 09:15 02/19/22 09:12 1 TAB Alprazolam (Xanax) 0.25 mg PRN Q4HRS PRN 02/15/22 04:45 02/19/22 07:51 0.25 MG Aspirin (Aspirin Chewable) 81 mg DAILY 02/13/22 12:00 02/19/22 07:51 81 MG Bupivacaine HCl (Sensorcaine-Mpf 0.25%) 10 ml 1X ONCE 02/18/22 09:30 02/18/22 09:31 DC 02/18/22 09:30 10 ML Calcium Gluconate (Calcium Gluconate) 1,000 mg 1X ONCE 02/12/22 20:15 02/12/22 20:16 DC 02/12/22 20:46 1,000 MG Carvedilol (Coreg) 25 mg BIDWMEALS 02/13/22 17:00 02/19/22 07:52 25 MG Cefdinir (Omnicef) 300 mg BID 02/18/22 21:00 02/19/22 09:00 DC 02/19/22 07:51 300 MG Ceftriaxone Sodium (Rocephin) 1 gm Q24H 02/13/22 11:00 02/18/22 12:25 DC 02/18/22 12:00 1 GM Chlordiazepoxide (Librium) 100 mg PRN Q1HR PRN 02/13/22 00:30 02/13/22 10:49 DC Clonidine HCl (Catapres) 0.1 mg PRN Q2HR PRN 02/13/22 01:30 02/16/22 22:53 0.1 MG Dextrose (Dextrose 50%-Water Syringe) 25 gm 1X ONCE 02/12/22 20:15 02/12/22 20:16 DC 02/12/22 20:46 25 GM Doxycycline Hyclate (Vibra-Tab) 100 mg BID 02/13/22 11:00 02/19/22 07:52 100 MG Fentanyl (Duragesic 25mcg/ Hr Patch) 1 patch Q3DAYS 02/18/22 13:00 02/18/22 13:36 1 PATCH Fentanyl Citrate (Fentanyl 2ml Vial) 50 mcg PRN Q1HR PRN 02/12/22 20:45 02/13/22 20:44 DC Folic Acid (Folic Acid) 1 mg DAILY 02/14/22 09:00 02/19/22 07:52 1 MG Haloperidol Lactate (Haldol Inj) 5 mg 1X ONCE 02/13/22 22:30 02/13/22 22:31 DC Insulin Human Regular (HumuLIN R VIAL) 10 unit 1X ONCE 02/12/22 20:15 02/12/22 20:16 DC 02/12/22 20:49 10 UNIT Lorazepam (Ativan Inj) 4 mg PRN Q15MIN PRN 02/13/22 00:30 UNV Lorazepam (Ativan) 8 mg PRN Q1HR PRN 02/13/22 00:30 Magnesium Oxide (Magnesium Oxide) 400 mg DAILY 02/14/22 09:00 02/19/22 07:51 400 MG Magnesium Sulfate 100 ml @ 25 mls/hr 1X ONCE 02/13/22 13:30 02/14/22 12:24 DC 02/13/22 12:52 25 MLS/HR Multivitamins (Thera M Plus) 1 tab DAILY 02/14/22 09:00 02/19/22 07:52 1 TAB Multivitamins 10 ml/Thiamine HCl 100 mg/Folic Acid 1 mg/Sodium Chloride 1,011.2 ml @ 100 mls/ hr DAILY 02/13/22 09:00 02/13/22 19:07 DC 02/13/22 09:00 100 MLS/HR Olanzapine (ZyPREXA IM) 10 mg 1X ONCE 02/13/22 22:30 02/14/22 12:24 DC 02/13/22 22:35 10 MG Olanzapine (ZyPREXA ZYDIS) 5 mg PRN DAILY PRN 02/14/22 20:30 02/18/22 15:52 5 MG Ondansetron HCl (Zofran Odt) 4 mg PRN Q6HRS PRN 02/15/22 11:15 02/15/22 11:33 4 MG Ondansetron HCl (Zofran) 4 mg PRN Q8HRS PRN 02/12/22 20:45 02/13/22 20:44 DC 02/13/22 09:22 4 MG Pantoprazole Sodium (Protonix) 40 mg DAILYAC 02/14/22 07:30 02/19/22 07:52 40 MG Potassium Chloride (Klor-Con) 20 meq 1X ONCE 02/17/22 14:30 02/17/22 14:31 DC 02/17/22 14:33 20 MEQ Sodium Chloride 1,000 ml @ 100 mls/hr 1X ONCE 02/14/22 12:30 02/14/22 22:29 DC 02/14/22 12:30 100 MLS/HR Tacrolimus (Prograf) 2 mg BID 02/13/22 11:00 02/19/22 07:52 2 MG Thiamine Mononitrate (Vitamin B-1) 100 mg DAILY 02/14/22 09:00 02/19/22 07:51 100 MG Triamcinolone Acetonide (Kenalog-40) 40 mg 1X ONCE 02/18/22 09:30 02/18/22 09:31 DC 02/18/22 09:30 40 MG Lab Laboratory Tests Test 02/18/22 10:38 02/18/22 11:23 02/18/22 21:22 02/19/22 08:08 Coronavirus (COVID-19)(PCR) Not detected (NOT DETECTD) Glucose (Fingerstick) 101 mg/dL (70-99) 209 mg/dL (70-99) 152 mg/dL (70-99) Results All relevant outside records, renal labs, imaging studies, telemetry/EKG's were reviewed. Justicifation of Admission Dx: Justifications for Admission: Justification of Admission Dx: Yes Acute Renal Failure: 3-Fold Rise in Serum YOUNG Serna MD Feb 19, 2022 10:05
--- NOTE | 2022-02-19 10:44 | PDOC ---
KJ MELENDEZ ELIDA 02/19/22 1044: CARDIO Progress Notes Date and Time Date of Service 02/19/22 Time of Evaluation 1040 Subjective Subjective: No Chest Pain, No shortness of breath, No Palpitations, No Dizziness, Other (feeling much better this morning ) Vitals Vitals Vital Signs Date Time Temp Pulse Resp B/P (MAP) Pulse Ox O2 Delivery O2 Flow Rate FiO2 02/19/22 09:52 95 Room Air 2.0 02/19/22 07:52 100 149/65 02/19/22 07:00 98.6 18 98.6 Weight Weight [ ] Input and Output Intake and Output Intake and Output 02/19/22 07:00 Intake Total 1400 ml Output Total 900 ml Balance 500 ml Intake Oral 1400 ml Output Urine Total 900 ml # Voids 1 # Bowel Movements 1 Laboratory Labs Laboratory Tests Test 02/18/22 11:23 02/18/22 21:22 02/19/22 08:08 Glucose (Fingerstick) 101 mg/dL (70-99) 209 mg/dL (70-99) 152 mg/dL (70-99) Microbiology Micro Microbiology 02/12/22 Urine Culture - Final, Complete Physical Exam HEENT: Neck Supple W Full Motion Chest: Symmetric LUNGS: Other (diminished bases) Heart: RRR (SR) Abdomen: Soft N/T Extremities: No Edema Neurology: alert, oriented, follow commands Assessment Assessment 1. Chest pain, atypical. AMI ruled out. 2. CAD s/p CABG 2013. Follows with Dr. Georgie BOWERS. Echo with preserved LV systolic function 3. Hypertensive urgency; now controlled 4. Hyperlipidemia; intolerant to statin 5. Diabetes, II 6. ANSHUL on CKD, s/p renal transplant 2010. on CellCept and Prograf. (Cr 1.1 at [facility] on 01/20/22). improved 7. Hyperkalemia: resolved 8. H/o CVA 9. Chronic ETOH abuse 10. Anxiety, depression 11. Encephalopathy: more oriented today, but remains drowsy Recommendations Secondary prevention On ASA, Coreg Intolerant to statins Outpatient stress test at [facility] as previously scheduled Supportive care Okay to discharge to rehab Justicifation of Admission Dx: Justifications for Admission: Justification of Admission Dx: Yes Acute Renal Failure: 3-Fold Rise in Serum FAHEEM Odom MD 4/27/22 2005: CARDIO Progress Notes Plan Plan The patient was seen and interviewed as well as examined at the bedside. The chart was reviewed. The case was discussed. Agree with the plan of care. KJ MELENDEZ APRN Feb 19, 2022 10:44 FAHEEM NICOLAS MD Feb 19, 2022 20:05
--- NOTE | 2022-02-19 10:51 | NUR ---
SS following up with discharge planning. SS reviewed pt chart and discussed with pt RN. Pt is currently on room air. COVID19 negative. PT/OT recommended acute rehabilitation. SS met with pt and discussed. Pt now wanting inpatient acute rehabilitation for physical therapy and acute inpatient rehabilitation for substance abuse issues. Pt requesting to speak with [facility] team. PAT team called. SS was notified by PAT team that pt will need to go to acute rehabilitation prior to substance abuse treatment because he will need to be completely independent for substance abuse rehabilitation. SS discussed with pt and pt agreeable to acute rehabilitation referral with no preference of company. Referral phoned and faxed to [facility], ; fax [phone]. PAT team coming to speak with pt. SS will continue to follow for discharge planning. Addendum: 02/19/22 at 1429 by KARINA DOMINGUEZ SS Pt accepted at [facility] and discharge orders received and sent to [facility]. Pt will discharge today and go to [facility] at 1630. [facility] to provide transportation. Pt and pt's RN notified.
[2022-02-19 11:00] VITALS: BP 156/80
--- NOTE | 2022-02-19 14:06 | PDOC ---
[employer] PROGRESS NOTE Date of Service DOS: DATE: 02/19/22 TIME: 14:03 Chief Complaint Chief Complaint Atypical chest pain with significant cardiac history CAD status post CABG hypertensive urgency shortness of breath secondary to bacterial pneumonia: Possibly gram-positive possibly gram-negative Type 2 diabetes not on any home meds status post renal transplant alcohol abuse with withdrawal hyperlipidemia ANSHUL due to vasomotor nephropathy -Admitted overnight with chest pain -NE ruled out. 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 On Prograf CellCept. Resumed these nephrology consult -Alcohol withdrawal protocol does appear to be actively withdrawing -Rocephin Doxy for pneumonia treatment. Patient reports handful vomiting episodes suspect possible aspiration. -Home meds as indicated -DVT prophylaxis -Discussed with bedside RN. History of Present Illness History of Present Illness 02/19: Patient seen and evaluated. Reports improvement in his sciatic pain following injection, per PM&R. He has been accepted at [facility] rehab, and following completion he will go to rehab for alcohol abuse. He was recommended to continue secondary prevention's, ASA and Coreg. He has scheduled outpatient stress test at [facility]. Greater than 30 minutes spent managing the discharge of this patient. 02/18: Patient examined at bedside. He reports multiple surgical and transplant history, with residual pain. He is today complaining of sciatic pain. He has previously had injections for sciatic pain with improvement roughly [address] consult to PM&R for sciatic nerve pain. He is agreeable to alcohol rehab and physical therapy. PAT team following. Will order PT/OT. COVID PCR pending. 02/17: Patient seen and examined bedside. Still actively withdrawing, requiring IV Ativan. We will continue treatment for community-acquired pneumonia. He reportedly has a history of DM2; will obtain hemoglobin A1c. Will obtain CRP to evaluate for ongoing bacterial pneumonia. 02/16 Patient evaluated examined at bedside. Talking to no one seems seemingly there. Really not providing any sort of history mostly ignored me. We will check labs and check a few more extensive labs for AMS work-up. He may simply be withdrawing. If felt that lorazepam is not sufficient always option to switch to phenobarbital. We will continue to monitor. Discussed with bedside RN. 02/15 Patient evaluated examined at bedside. Was having some auditory and visual hallucinations overnight and I recommended giving Haldol after he refused recommended Zyprexa. May have given to him too high dose as patient very lethargic today cannot be woken up easily and fastly back asleep. Continue current we will discuss with him as mental status improves. Nephrology cardiology recommendations reviewed. Vitals/I&O Vitals/I&O: Vital Signs Date Time Temp Pulse Resp B/P (MAP) Pulse Ox O2 Delivery O2 Flow Rate FiO2 02/19/22 11:00 98.4 85 18 156/80 (105) 96 Room Air 98.4 02/19/22 09:52 2.0 I & O 02/18/22 02/18/22 02/19/22 15:00 23:00 07:00 Intake Total 360 ml 300 ml 740 ml Output Total 900 ml Balance 360 ml 300 ml -160 ml Physical Exam General: Alert, Cooperative, mild distress Heart: Regular rate Lungs: Clear Abdomen: Normal bowel sounds Extremities: No cyanosis, No edema Skin: No breakdown, No significant lesion Labs Labs: Laboratory Tests Test 02/18/22 21:22 02/19/22 08:08 Glucose (Fingerstick) 209 mg/dL (70-99) 152 mg/dL (70-99) Assessment and Plan Assessmemt and Plan Problems Medical Problems: (1) ANSHUL (acute kidney injury) Status: Acute (2) Chest pain Status: Acute (3) Hyperkalemia Status: Acute Comment Review of Relevant I have reviewed the following items zulma (where applicable) has been applied. Medications: Current Medications Medications (Trade) Dose Ordered Sig/Twan Route PRN Reason Start Time Stop Time Status Last Admin Dose Admin Cefdinir (Omnicef) 300 mg BID PO 02/18/22 21:00 02/19/22 09:00 DC 02/19/22 07:51 Justifications for Admission Other Justification JULISSA BLANCO MD Feb 19, 2022 14:06
--- NOTE | 2022-02-19 14:12 | PDOC3 ---
Discharge Summary Visit Information Date of Admission: Feb 13, 2022 Date of Discharge: Feb 19, 2022 Final Diagnosis Problems Medical Problems: (1) ANSHUL (acute kidney injury) Status: Acute (2) Chest pain Status: Acute (3) Hyperkalemia Status: Acute Brief Hospital Course Allergies Allergies Coded Allergies Type Severity Reaction Last Updated Verified No Known Drug Allergies 02/12/22 No Vital Signs Vital Signs Date Time Temp Pulse Resp B/P (MAP) Pulse Ox O2 Delivery O2 Flow Rate FiO2 02/19/22 11:00 98.4 85 18 156/80 (105) 96 Room Air 98.4 02/19/22 09:52 2.0 Lab Results Laboratory Tests Test 02/17/22 17:05 02/17/22 20:48 02/18/22 05:20 02/18/22 08:10 Glucose (Fingerstick) 93 mg/dL (70-99) 122 mg/dL (70-99) 137 mg/dL (70-99) Sodium Level 137 mmol/L (136-145) Potassium Level 3.5 mmol/L (3.5-5.1) Chloride Level 102 mmol/L (98-107) Carbon Dioxide Level 23 mmol/L (21-32) Anion Gap 12 (6-14) Blood Urea Nitrogen 22 mg/dL (8-26) Creatinine 1.3 mg/dL (0.7-1.3) Estimated GFR (Cockcroft-Gault) 67.5 Glucose Level 137 mg/dL (70-99) Calcium Level 9.1 mg/dL (8.5-10.1) Test 02/18/22 10:38 02/18/22 11:23 02/18/22 21:22 02/19/22 08:08 Coronavirus (COVID-19)(PCR) Not detected (NOT DETECTD) Glucose (Fingerstick) 101 mg/dL (70-99) 209 mg/dL (70-99) 152 mg/dL (70-99) Laboratory Tests Test 02/18/22 21:22 02/19/22 08:08 Glucose (Fingerstick) 209 mg/dL (70-99) 152 mg/dL (70-99) Brief Hospital Course Mr. Cotton is a 61 old male who presented with atypical chest pain, hypertensive urgency, bacterial pneumonia, alcohol abuse with withdrawal. Patient was treated with oral doxycycline with improvement. Consultation was placed to cardiology. He was recommended to continue secondary prevention, aspirin and Coreg. He was intolerant to statins. He had echocardiogram that showed normal left ventricular size and function, LV ejection fraction 55-60%. He is scheduled for outpatient stress test at [facility] in the near future. While inpatient he was treated for alcohol withdrawal with as needed Ativan. Consultation was placed to PM&R for sciatic pain. He received a sciatic nerve injection with improvement in pain. As patient began to improve he was stable to discharge to [facility] rehab. [facility] will go to alcohol rehab. Discharge Information Condition at Discharge: Improved Disposition/Orders: D/C to Another Facility Scheduled Alirocumab (Praluent Pen) 75 Mg/1 Ml Pen.injctr, 75 MG SQ Q2WKS for rejection, (Reported) Entered as Reported by: HAY PICKARD on 02/13/221118 Last Action: New Order on 02/13/221118 by HAY PICKARD Allopurinol (Allopurinol) 300 Mg Tablet, 1 TAB PO QODAY for gout, #30 Ref 5 (Reported) Entered as Reported by: HAY PICKARD on 02/13/221113 Last Action: New Order on 02/13/221113 by HAY PICKARD Allopurinol (Allopurinol) 300 Mg Tablet, 0.5 TAB PO QODAY for gout, #90 Ref 1 (Reported) Entered as Reported by: HAY PICKARD on 02/13/221113 Last Action: New Order on 02/13/221113 by HAY PICKARD Aspirin (Aspirin) 81 Mg Tab.chew, 81 MG PO DAILY for CLOT PREVENTION, (Reported) Entered as Reported by: ASHELY TAYLOR on 02/13/22 0251 Last Action: Continued on 02/13/22 105 by MICHELLE GREEN MD Carvedilol (Coreg) 25 Mg Tablet, 25 MG PO BIDWMEALS for CARDIAC, (Reported) Entered as Reported by: HAY PICKARD on 02/13/221113 Last Action: Converted on 02/13/221546 by KJ MELENDEZ APRN Diclofenac Sodium (Voltaren Arthritis Pain) 20 Gm Gel..gram., 20 GM TP BID for pain, (Reported) Entered as Reported by: HAY PICKARD on 02/13/221118 Last Action: New Order on 02/13/221118 by HAY PICKARD Fluticasone Propionate (Flonase Allergy Relief) 9.9 Ml [place].susp, 2 SPRAYS NS DAILY for allergies, (Reported) Entered as Reported by: HAY PICKARD on 02/13/221118 Last Action: New Order on 02/13/221118 by HAY PICKARD Magnesium Oxide (Magnesium Oxide) 400 Mg Tablet, 1 TAB PO DAILY for supplement, #30 Ref 5 (Reported) Entered as Reported by: HAY PICKARD on 02/13/221113 Last Action: Continued on 02/13/221546 by KJ MELENDEZ APRN Mycophenolate Mofetil (Cellcept) 500 Mg Tablet, 2 TAB PO BID for rejection, #360 Ref 3 (Reported) Entered as Reported by: HAY PICKARD on 02/13/221113 Last Action: New Order on 02/13/221113 by HAY PICKARD [place]-3 Fatty Acids/Fish Oil (Fish Oil 1,000 Mg Softgel) 1 Each Capsule, 1 CAP PO DAILY for supplement for 30 Days, #30 Ref 0 (Reported) Entered as Reported by: HAY PICKARD on 02/13/221113 Last Action: New Order on 02/13/221113 by HAY PICKARD Omeprazole (Omeprazole) 40 Mg Capsule.dr, 1 CAP PO DAILY for GI, #30 Ref 3 (Reported) Entered as Reported by: HAY PICKARD on 02/13/221113 Last Action: Converted on 02/13/221546 by KJ MELENDEZ APRN Tacrolimus (Prograf) 1 Mg Capsule, 1 CAP PO HS for rejection, #180 Ref 3 (Reported) Entered as Reported by: HAY PICKARD on 02/13/221113 Last Action: New Order on 02/13/221113 by HAY PICKARD Vitamin D3/Vitamin K2 (D3 + K2 Dots 1,000 Units Tab) 1 Each Tab.rapdis, 1 TAB PO DAILY for supplement for 30 Days, #30 Ref 0 (Reported) Entered as Reported by: HAY PICKARD on 02/13/221113 Last Action: New Order on 02/13/221113 by HAY PICKARD Scheduled PRN Tacrolimus (Prograf) 1 Mg Capsule, 2 CAP PO DAILY08 PRN for ALLERGIC REACTION, #120 Ref 11 (Reported) Entered as Reported by: HAY PICKARD on 02/13/221113 Last Action: New Order on 02/13/221113 by HAY PICKARD Miscellaneous Medications [repa] Unknown Strength , Unknown Dose, (Reported) Entered as Reported by: ASHELY TAYLOR on 02/13/22558 Last Taken: UNKNOWN on Unknown Date & Time Last Action: New Order on 02/13/22558 by ASHELY TAYLOR Discontinued Medications Tacrolimus (Prograf) 1 Mg Capsule, 2 CAP PO BID for IMMUNOSUPPRESSIVE, #120 Ref 11 (Reported) Entered as Reported by: ASHELY TAYLOR on 02/13/22250 Last Action: Discontinued on 02/13/221113 by HAY PICKARD [Cor] , BID for BLOOD PRESSURE AND HEART FAILU, (Reported) Entered as Reported by: ASHELY TAYLOR on 02/13/22250 Last Action: Discontinued on 02/13/221113 by HAY PICKARD [coreg] Unknown Strength , Unknown Dose, (Reported) Entered as Reported by: ASHELY TAYLOR on 02/13/22558 Last Taken: UNKNOWN on Unknown Date & Time Last Action: Discontinued on 02/13/221113 by HAY PICKARD [fish] Unknown Strength , Unknown Dose, (Reported) Entered as Reported by: ASHELY TAYLOR on 02/13/22558 Last Taken: UNKNOWN on Unknown Date & Time Last Action: Discontinued on 02/13/221113 by HAY PICKARD [vitd3] Unknown Strength , Unknown Dose, (Reported) Entered as Reported by: ASHELY TAYLOR on 02/13/22558 Last Taken: UNKNOWN on Unknown Date & Time Last Action: Discontinued on 02/13/221113 by HAY PICKARD Justicifation of Admission Dx: Justifications for Admission: Justification of Admission Dx: Yes Acute Renal Failure: 3-Fold Rise in Serum JULISSA Underwood MD Feb 19, 2022 14:12
--- NOTE | 2022-02-19 14:16 | SNU/HH DC ---
DISCHARGE ORDERS DISCHARGE INFORMATION: DISCHARGE DATE: Feb 19, 2022 FINAL DIAGNOSIS Problems Medical Problems: (1) ANSHUL (acute kidney injury) Status: Acute (2) Chest pain Status: Acute (3) Hyperkalemia Status: Acute CODE STATUS: Code Status: Full SENIOR LIVING: SNF STAY <30 DAYS: Yes POST DISCHARGE ORDERS: ACTIVITY ORDERS: Activity as tolerated WEIGHT BEARING STATUS: As tolerated DIET AFTER DISCHARGE: Cardiac DISCHARGE MEDICATIONS: Home Meds Reported Medications Diclofenac Sodium (Voltaren Arthritis Pain) 20 Gm Gel..gram., 20 GM TP BID for pain, EACH 02/13/22 Fluticasone Propionate (Flonase Allergy Relief) 9.9 Ml [place].susp, 2 SPRAYS NS DAILY for allergies, ML 02/13/22 Alirocumab (Praluent Pen) 75 Mg/1 Ml Pen.injctr, 75 MG SQ Q2WKS for rejection, EACH 02/13/22 Omeprazole (OMEPRAZOLE) 40 Mg Capsule.dr, 1 CAP PO DAILY for GI, #30 CAP 3 Refills 02/13/22 Magnesium Oxide (MAGNESIUM OXIDE) 400 Mg Tablet, 1 TAB PO DAILY for supplement, #30 TAB 5 Refills 02/13/22 Allopurinol (ALLOPURINOL) 300 Mg Tablet, 0.5 TAB PO QODAY for gout, #90 TAB 1 Refill 02/13/22 Allopurinol (ALLOPURINOL) 300 Mg Tablet, 1 TAB PO QODAY for gout, #30 TAB 5 Refills 02/13/22 Mycophenolate Mofetil (CELLCEPT) 500 Mg Tablet, 2 TAB PO BID for rejection, #360 TAB 3 Refills 02/13/22 Vitamin D3/Vitamin K2 (D3 + K2 DOTS 1,000 UNITS TAB) 1 Each Tab.rapdis, 1 TAB PO DAILY for supplement for 30 Days, #30 TAB 0 Refills 02/13/22 [place]-3 Fatty Acids/Fish Oil (FISH OIL 1,000 MG SOFTGEL) 1 Each Capsule, 1 CAP PO DAILY for supplement for 30 Days, #30 CAP 0 Refills 02/13/22 Carvedilol (COREG) 25 Mg Tablet, 25 MG PO BIDWMEALS for CARDIAC, TAB 02/13/22 Tacrolimus (PROGRAF) 1 Mg Capsule, 1 CAP PO HS for rejection, #180 CAP 3 Refills 02/13/22 Tacrolimus (PROGRAF) 1 Mg Capsule, 2 CAP PO DAILY08 PRN for ALLERGIC REACTION, #120 CAP 11 Refills 02/13/22 [repa] Unknown Strength No Conflict Check 02/13/22 Aspirin (ASPIRIN) 81 Mg Tab.chew, 81 MG PO DAILY for CLOT PREVENTION, TAB.CHEW 02/13/22 Discontinued Reported Medications [vitd3] Unknown Strength No Conflict Check 02/13/22 [fish] Unknown Strength No Conflict Check 02/13/22 [coreg] Unknown Strength No Conflict Check 02/13/22 Tacrolimus (PROGRAF) 1 Mg Capsule, 2 CAP PO BID for IMMUNOSUPPRESSIVE, #120 CAP 11 Refills 02/13/22 [Cor] No Conflict Check, BID for BLOOD PRESSURE AND HEART FAILU 02/13/22 JULISSA BLANCO MD Feb 19, 2022 14:16
--- NOTE | 2022-02-19 14:55 | PDOC ---
PROGRESS NOTES Date of Service DATE: 02/19/22 TIME: 14:53 Subjective Subjective He feels much better. Objective Objective Vital Signs Date Time Temp Pulse Resp B/P (MAP) Pulse Ox O2 Delivery O2 Flow Rate FiO2 02/19/22 11:00 98.4 85 18 156/80 (105) 96 Room Air 98.4 02/19/22 09:52 2.0 Intake and Output 02/19/22 07:00 Intake Total 1400 ml Output Total 900 ml Balance 500 ml Intake Oral 1400 ml Output Urine Total 900 ml # Voids 1 # Bowel Movements 1 Physical Exam Physical Exam He is alert,and he got up and walked with roller walker on level surface. Assessment Assessment Problems Medical Problems: (1) ANSHUL (acute kidney injury) Status: Acute (2) Chest pain Status: Acute (3) Hyperkalemia Status: Acute Plan Plan of Care He does not need more than a few days of inpatient rehab at this time. Comment Review of Relevant I have reviewed the following items zulma (where applicable) has been applied. Labs Laboratory Tests Test 02/17/22 17:05 02/17/22 20:48 02/18/22 05:20 02/18/22 08:10 Glucose (Fingerstick) 93 mg/dL (70-99) 122 mg/dL (70-99) 137 mg/dL (70-99) Sodium Level 137 mmol/L (136-145) Potassium Level 3.5 mmol/L (3.5-5.1) Chloride Level 102 mmol/L (98-107) Carbon Dioxide Level 23 mmol/L (21-32) Anion Gap 12 (6-14) Blood Urea Nitrogen 22 mg/dL (8-26) Creatinine 1.3 mg/dL (0.7-1.3) Estimated GFR (Cockcroft-Gault) 67.5 Glucose Level 137 mg/dL (70-99) Calcium Level 9.1 mg/dL (8.5-10.1) Test 02/18/22 10:38 02/18/22 11:23 02/18/22 21:22 02/19/22 08:08 Coronavirus (COVID-19)(PCR) Not detected (NOT DETECTD) Glucose (Fingerstick) 101 mg/dL (70-99) 209 mg/dL (70-99) 152 mg/dL (70-99) Laboratory Tests Test 02/18/22 21:22 02/19/22 08:08 Glucose (Fingerstick) 209 mg/dL (70-99) 152 mg/dL (70-99) Microbiology 02/12/22 Urine Culture - Final, Complete Medications Current Medications Fentanyl Citrate (Fentanyl 2ml Vial) 50 mcg PRN Q15MIN PRN IV PAIN GREATER THAN 3/10 Last administered on 02/12/22at 23:57; Start 02/12/22 at 20:00; Stop 02/13/22 at 19:59; Status DC Lorazepam (Ativan Inj) 1 mg 1X ONCE IVP Last administered on 02/12/22at 20:23; Start 02/12/22 at 19:45; Stop 02/12/22 at 19:53; Status DC Sodium Chloride 500 ml @ 500 mls/hr 1X ONCE IV Last administered on 02/12/22at 20:00; Start 02/12/22 at 20:00; Stop 02/12/22 at 20:59; Status DC Ondansetron HCl (Zofran) 4 mg 1X ONCE IVP Last administered on 02/12/22at 20:22; Start 02/12/22 at 20:00; Stop 02/12/22 at 20:02; Status DC Calcium Gluconate (Calcium Gluconate) 1,000 mg 1X ONCE IVP Last administered on 02/12/22at 20:46; Start 02/12/22 at 20:15; Stop 02/12/22 at 20:16; Status DC Dextrose (Dextrose 50%-Water Syringe) 25 gm 1X ONCE IV Last administered on 02/12/22at 20:46; Start 02/12/22 at 20:15; Stop 02/12/22 at 20:16; Status DC Insulin Human Regular (HumuLIN R VIAL) 10 unit 1X ONCE IV Last administered on 02/12/22at 20:49; Start 02/12/22 at 20:15; Stop 02/12/22 at 20:16; Status DC Tacrolimus (Prograf) 1 mg 1X STAT PO Last administered on 02/12/22at 23:51; Start 02/12/22 at 20:25; Stop 02/12/22 at 20:37; Status DC Ondansetron HCl (Zofran) 4 mg PRN Q8HRS PRN IVP NAUSEA/VOMITING Last administered on 02/13/22at 09:22; Start 02/12/22 at 20:45; Stop 02/13/22 at 20:44; Status DC Fentanyl Citrate (Fentanyl 2ml Vial) 50 mcg PRN Q1HR PRN IVP PAIN; Start 02/12/22 at 20:45; Stop 02/13/22 at 20:44; Status DC Acetaminophen (Tylenol) 650 mg PRN Q4HRS PRN PO FEVER > 100.3'F; Start 02/12/22 at 20:45; Stop 02/13/22 at 20:44; Status DC Multivitamins 10 ml/Thiamine HCl 100 mg/Folic Acid 1 mg/Sodium Chloride 1,011.2 ml @ 100 mls/ hr DAILY IV Last administered on 02/13/22at 09:00; Start 02/13/22 at 09:00; Stop 02/13/22 at 19:07; Status DC Multivitamins (Thera M Plus) 1 tab DAILY PO Last administered on 02/19/22at 07:52; Start 02/14/22 at 09:00 Folic Acid (Folic Acid) 1 mg DAILY PO Last administered on 02/19/22at 07:52; Start 02/14/22 at 09:00 Thiamine Mononitrate (Vitamin B-1) 100 mg DAILY PO Last administered on 02/19/22at 07:51; Start 02/14/22 at 09:00 Chlordiazepoxide (Librium) 50 mg PRN Q1HR PRN PO For CIWA 8-14; Start 02/13/22 at 00:30; Stop 02/13/22 at 10:49; Status DC Chlordiazepoxide (Librium) 100 mg PRN Q1HR PRN PO For CIWA 15 or greater; Start 02/13/22 at 00:30; Stop 02/13/22 at 10:49; Status DC Lorazepam (Ativan) 4 mg PRN Q1HR PRN PO For CIWA 8-14 Last administered on 02/13/22at 09:23; Start 02/13/22 at 00:30 Lorazepam (Ativan) 8 mg PRN Q1HR PRN PO For CIWA 15 or greater; Start 02/13/22 at 00:30 Lorazepam (Ativan Inj) 2 mg PRN Q1HR PRN IV For CIWA 8-14 Last administered on 02/16/22at 13:45; Start 02/13/22 at 00:30 Lorazepam (Ativan Inj) 4 mg PRN Q1HR PRN IV For CIWA 15 or greater Last administered on 02/16/22at 16:30; Start 02/13/22 at 00:30 Lorazepam (Ativan Inj) 2 mg PRN Q15MIN PRN IV SEE COMMENTS; Start 02/13/22 at 00:30; Status Cancel Lorazepam (Ativan Inj) 4 mg PRN Q15MIN PRN IV SEE COMMENTS; Start 02/13/22 at 00:30; Status UNV Magnesium Sulfate 50 ml @ 25 mls/hr 1X ONCE IV Last administered on 02/13/22at 01:34; Start 02/13/22 at 02:00; Stop 02/13/22 at 03:59; Status DC Clonidine HCl (Catapres) 0.1 mg PRN Q2HR PRN PO HYPERTENSION Last administered on 02/16/22at 22:53; Start 02/13/22 at 01:30 Ceftriaxone Sodium (Rocephin) 1 gm Q24H IVP Last administered on 02/18/22at 12:00; Start 02/13/22 at 11:00; Stop 02/18/22 at 12:25; Status DC Doxycycline Hyclate (Vibra-Tab) 100 mg BID PO Last administered on 02/19/22 07:52; Start 02/13/22 at 11:00 Aspirin (Aspirin Chewable) 81 mg DAILY PO Last administered on 02/19/22 07:51; Start 02/13/22 at 12:00 Tacrolimus (Prograf) 2 mg BID PO Last administered on 02/19/22 07:52; Start 02/13/22 at 11:00 Magnesium Sulfate 100 ml @ 25 mls/hr 1X ONCE IV Last administered on 02/13/22at 12:52; Start 02/13/22 at 13:30; Stop 02/14/22 at 12:24; Status DC Magnesium Oxide (Magnesium Oxide) 400 mg DAILY PO Last administered on 02/19/22 07:51; Start 02/14/22 at 09:00 Carvedilol (Coreg) 25 mg BIDWMEALS PO Last administered on 02/19/22at 07:52; Start 02/13/22 at 17:00 Pantoprazole Sodium (Protonix) 40 mg DAILYAC PO Last administered on 02/19/22at 07:52; Start 02/14/22 at 07:30 Haloperidol Lactate (Haldol Inj) 5 mg 1X ONCE IM ; Start 02/13/22 at 22:30; Stop 02/13/22 at 22:31; Status DC Olanzapine (ZyPREXA IM) 10 mg 1X ONCE IM Last administered on 02/13/22at 22:35; Start 02/13/22 at 22:30; Stop 02/14/22 at 12:24; Status DC Sodium Chloride 1,000 ml @ 100 mls/hr 1X ONCE IV Last administered on 02/14/22at 12:30; Start 02/14/22 at 12:30; Stop 02/14/22 at 22:29; Status DC Olanzapine (ZyPREXA ZYDIS) 5 mg PRN DAILY PRN PO HALLUCINATIONS Last administered on 02/18/22at 15:52; Start 02/14/22 at 20:30 Alprazolam (Xanax) 0.25 mg PRN Q4HRS PRN PO ANXIETY / AGITATION Last administered on 02/19/22at 13:36; Start 02/15/22 at 04:45 Ondansetron HCl (Zofran Odt) 4 mg PRN Q6HRS PRN PO NAUSEA/VOMITING Last administered on 02/15/22at 11:33; Start 02/15/22 at 11:15 Potassium Chloride (Klor-Con) 20 meq 1X ONCE PO Last administered on 02/17/22at 14:33; Start 02/17/22 at 14:30; Stop 02/17/22 at 14:31; Status DC Triamcinolone Acetonide (Kenalog-40) 40 mg 1X ONCE INT ART Last administered on 02/18/22at 09:30; Start 02/18/22 at 09:30; Stop 02/18/22 at 09:31; Status DC Bupivacaine HCl (Sensorcaine-Mpf 0.25%) 10 ml 1X ONCE IJ Last administered on 02/18/22at 09:30; Start 02/18/22 at 09:30; Stop 02/18/22 at 09:31; Status DC Acetaminophen/ Hydrocodone Bitart (Lortab 7.5/325) 1 tab PRN Q6HRS PRN PO PAIN Last administered on 02/19/22at 09:12; Start 02/18/22 at 09:15 Cefdinir (Omnicef) 300 mg BID PO Last administered on 02/19/22at 07:51; Start 02/18/22 at 21:00; Stop 02/19/22 at 09:00; Status DC Fentanyl (Duragesic 25mcg/ Hr Patch) 1 patch Q3DAYS TD Last administered on 02/18/22at 13:36; Start 02/18/22 at 13:00 Active Scripts Active Reported Voltaren Arthritis Pain (Diclofenac Sodium) 20 Gm Gel..gram. 20 Gm TP BID Flonase Allergy Relief (Fluticasone Propionate) 9.9 Ml [place].susp 2 Sprays NS DAILY Praluent Pen (Alirocumab) 75 Mg/1 Ml Pen.injctr 75 Mg SQ Q2WKS Omeprazole 40 Mg Capsule.dr 1 Cap PO DAILY Magnesium Oxide 400 Mg Tablet 1 Tab PO DAILY Allopurinol 300 Mg Tablet 0.5 Tab PO QODAY Allopurinol 300 Mg Tablet 1 Tab PO QODAY Cellcept (Mycophenolate Mofetil) 500 Mg Tablet 2 Tab PO BID D3 + K2 Dots 1,000 Units Tab (Vitamin D3/Vitamin K2) 1 Each Tab.rapdis 1 Tab PO DAILY 30 Days Fish Oil 1,000 Mg Softgel (Osage-3 Fatty Acids/Fish Oil) 1 Each Capsule 1 Cap PO DAILY 30 Days Coreg (Carvedilol) 25 Mg Tablet 25 Mg PO BIDWMEALS Prograf (Tacrolimus) 1 Mg Capsule 1 Cap PO HS Prograf (Tacrolimus) 1 Mg Capsule 2 Cap PO DAILY08 PRN [repa] Unknown Strength Unknown Dose Aspirin 81 Mg Tab.chew 81 Mg PO DAILY Vitals/I & O Vital Sign - Last 24 Hours 02/18/22 02/18/22 02/18/22 02/18/22 15:00 17:14 17:36 19:37 Temp 98.8 98.2 98.8 98.2 Pulse 74 74 89 Resp 16 18 B/P (MAP) 137/77 (97) 137/77 139/68 (91) Pulse Ox 94 94 96 O2 Delivery Room Air Room Air Room Air O2 Flow Rate 2.0 02/18/22 02/18/22 02/19/22 02/19/22 20:00 23:59 01:40 02:10 Temp 98.6 98.6 Pulse 85 Resp 16 20 20 B/P (MAP) 145/70 (95) Pulse Ox 98 98 98 O2 Delivery Room Air Room Air Room Air Room Air 02/19/22 02/19/22 02/19/22 02/19/22 02:47 07:00 07:52 08:00 Temp 98.0 98.6 98.0 98.6 Pulse 82 92 100 Resp 18 18 B/P (MAP) 154/68 (96) 149/65 (93) 149/65 Pulse Ox 98 95 O2 Delivery Room Air Room Air Room Air 02/19/22 02/19/22 02/19/22 09:12 09:52 11:00 Temp 98.4 98.4 Pulse 85 Resp 18 B/P (MAP) 156/80 (105) Pulse Ox 95 95 96 O2 Delivery Room Air Room Air Room Air O2 Flow Rate 2.0 2.0 Intake and Output 02/18/22 02/18/22 02/19/22 15:00 23:00 07:00 Intake Total 360 ml 300 ml 740 ml Output Total 900 ml Balance 360 ml 300 ml -160 ml Justifications for Admission Other Justification ANNE MARIE PEREZ MD Feb 19, 2022 14:55
--- NOTE | 2022-02-19 16:10 | NUR ---
Discharge Note: [facility] Discharge instructions and discharge home medications reviewed with Patient and a copy given. All questions have been answered and understanding verbalized. The following instructions and handouts were given: Pt transferred Discontinued lines and drains: residential monitor removed Patient discharged to [facility]
== END 2022-02-19 15:55 | DRG 313 ==
LOC: ER 19:10 → 6 SOUTH 20:35
PROVIDERS: ADMIT Internal Medicine; ATTEND Internal Medicine
DX: R07.89 Other chest pain (principal); N17.0 Acute kidney failure with tubular necrosis; J15.9 Unspecified bacterial pneumonia; G93.40 Encephalopathy, unspecified; F10.239 Alcohol dependence with withdrawal, unspecified; I16.0 Hypertensive urgency; E11.22 Type 2 diabetes mellitus with diabetic chronic kidney disease; E11.40 Type 2 diabetes mellitus with diabetic neuropathy, unspecified; E78.5 Hyperlipidemia, unspecified; E87.5 Hyperkalemia; F17.200 Nicotine dependence, unspecified, uncomplicated; F32.A Depression, unspecified; F41.9 Anxiety disorder, unspecified; G89.29 Other chronic pain; I25.10 Atherosclerotic heart disease of native coronary artery without angina pectoris; K21.9 Gastro-esophageal reflux disease without esophagitis; M10.9 Gout, unspecified; M19.90 Unspecified osteoarthritis, unspecified site; M51.36 Other intervertebral disc degeneration, lumbar region; M54.30 Sciatica, unspecified side; N18.9 Chronic kidney disease, unspecified; N40.0 Benign prostatic hyperplasia without lower urinary tract symptoms; Z20.822 Contact with and (suspected) exposure to COVID-19; Z79.899 Other long term (current) drug therapy; Z86.73 Personal history of transient ischemic attack (TIA), and cerebral infarction without residual deficits; Z90.49 Acquired absence of other specified parts of digestive tract; Z91.14 Patient's other noncompliance with medication regimen; Z95.1 Presence of aortocoronary bypass graft
CPT/HCPCS: 36415; 36600; 71045; 72020; 80048; 80053; 80061; 80197; 80307; 81001; 82140; 82805; 82962; 83036; 83690; 83735; 83880; 84443; 84484; 85007; 85025; 85379; 85610; 86140; 87086; 93005; 93306; 96374; 96375; J0610; J0696; J1815; J2060; J2405; J3010; J3301; J3411; J3475; J3490; J7030; J7040; J7507; U0003; 97116-GP; 97535-GO; 99285-25; C8929; G0378